=== PATIENT | female | born 1995 | race Caucasian/White ===

== ENCOUNTER 2016-09-08 19:20 | Emergency (ER) | payer MEDICAID ==
[~2016-09-08] VITALS: Ht 154.9 cm; Wt 50.0 kg
[~2016-09-08 19:20] MED LIST: ALBUAER3 INH; AMIT1TAB79 PO; BACL20TA PO; CIPR-9 PO; CLON1TAB PO; DOCU100C PO; EPIP0.3I IM; GABA600T PO; LYRI150C PO; MACR100C2 PO; MONT10TA2 PO; OMEP20CA2 PO; PAXI20TA PO; PERC5TAB12 PO; PROC2.5C RECTAL; RANI150T PO; SEASTAB2 PO; ULTR50TA5 PO; ZOFR8TAB4 SL; [UNRECOGNIZED DRUG - CODE] TOPICAL
[2016-09-08 19:22] VITALS: BP 133/74; PULSE 99; RESP 16; TEMP 98.5; O2SAT 98
[2016-09-08] MEDS ORDERED: SODIUM CHLOR 0.9% 1000 ML INJ 1,000 ML IV SCH (23:43)
[2016-09-08] MEDS ORDERED: HYDROmorphone HCL PF 1 MG/ML VIAL IVS ONE (23:45)
[2016-09-08] MEDS ORDERED: SODIUM CHLORIDE 0.9% FLUSH 5 ML FLUSH IVF PRN (23:45)
[2016-09-09 00:08] LABS: AUTOMATED NEUTROPHIL # 5.1 TH/MM3 (1.8-7.7); BASOPHIL % 0.5 % (0.0-2.0); EOSINOPHIL # 0.2 TH/MM3 (0-0.4); HEMATOCRIT 41.2 % (35.0-46.0); HEMO FLAGS DIFF FINAL; LYMPH % 34.8 % (9.0-44.0); LYMPHOCYTE # 3.2 TH/MM3 (1.0-4.8); MEAN CELL VOLUME 85.8 FL (80.0-100.0); MEAN CORPUSCULAR HEMOGLOBIN 29.6 PG (27.0-34.0); MEAN CORPUSCULAR HGB CONC 34.4 % (32.0-36.0); MONO % 6.9 % (0.0-8.0); NEUT % 55.8 % (16.0-70.0); PLATELET COUNT 267 TH/MM3 (150-450); RED CELL DISTRIBUTION WIDTH 19.2 % (11.6-17.2); WHITE BLOOD COUNT 9.2 TH/MM3 (4.0-11.0)
--- NOTE | 2016-09-09 00:09 | PD ---
HPI Chief Complaint: Complaint Time Seen by Provider: 23:37 Travel History International Travel<30 days: No Contact w/Intl Traveler<30days: No Traveled to known affect area: No History of Present Illness HPI Patient is a 21-year-old female history of paraplegia for the past year presents emergency Department with recurrent UTI symptoms. Patient states that she would just finished antibiotics and continues to have burning on urination and vaginal irritation. Denies any fever denies abdominal pain. States the pain is now radiating up to her back. Patient does self catheter at home secondary to paraplegia, she did just have a urine culture by her primary care physician positive for Escherichia coli and was prescribed ciprofloxacin but has not started it yet. Denies any fever mild nausea without vomiting. Denies any vaginal bleeding or vaginal discharge. PFSH Past Medical History Asthma: Yes Autoimmune Disease: No Anxiety: Yes Depression: Yes Cancer: No Cardiovascular Problems: No Cerebrovascular Accident: Yes (SPINE) Diminished Hearing: No Endocrine: No GERD: Yes Genitourinary: Yes (PT SELF CATHS 6 X DAILY) Immune Disorder: No Musculoskeletal: Yes (PARAPLEGIC, FOOT DROP) Neurologic: No Psychiatric: Yes (BIPOLAR?) Respiratory: Yes Migraines: No Seizures: No Menopausal: No Past Surgical History Abdominal Surgery: No AICD: No Arteriovenous Shunt: No Cardiac Surgery: No Ear Surgery: No Endocrine Surgery: No Eye Surgery: No Genitourinary Surgery: No Gynecologic Surgery: No Insulin Pump: No Joint Replacement: No Oral Surgery: No Pacemaker: No Thoracic Surgery: No Other Surgery: Yes (PLASTIC SURGERY SKIN GRAFT ON LEFT BUTTOCK) Social History Alcohol Use: No Tobacco Use: Yes (1 PPD) Substance Use: No Allergies-Medications (Allergen,Severity, Reaction): Coded Allergies: Atarax (Verified Allergy, Severe, 09/08/16) FACE SWELLING Ativan (Verified Allergy, Severe, Swelling, 09/08/16) Penicillin (Verified Allergy, Severe, 09/08/16) WAS TOLD NOT TO TAKE Vancomycin (Verified Allergy, Severe, 09/08/16) "RED MAN SYNDROME", Adhesives (Verified Allergy, Mild, 09/08/16) rash Reported Meds & Prescriptions Reported Meds & Active Scripts Active Zofran Odt (Ondansetron Odt) 4 Mg Tab 4 Mg SL Q6HR PRN [place] (Hydrocodone-Acetaminophen) 10-325 Mg Tab 1 Tab PO Q6H PRN Cipro (Ciprofloxacin HCl) 500 Mg Tab 500 Mg PO BID Paxil (Paroxetine HCl) 20 Mg Tab 20 Mg PO DAILY Proctosol Hc (Hydrocortisone Rectal) 2.5% Cream 1 Applic RECTAL BID PRN Clonazepam 1 Mg Tab 1 Mg PO TID Gabapentin 600 Mg Tab 1,200 Mg PO TID Elavil (Amitriptyline HCl) 25 Mg Tab 50 Mg PO HS Tretinoin Microsphere Topical 0.1 % Gel 1 Applic TOPICAL HS Ranitidine (Ranitidine HCl) 150 Mg Tab 150 Mg PO HS Ultram (Tramadol HCl) 50 Mg Tab 100 Mg PO Q4H PRN Reported Omeprazole 20 Mg Cap Mg PO DAILY Lyrica (Pregabalin) 150 Mg Cap 150 Mg PO TID Percocet (Oxycodone-Acetaminophen) 5-325 mg Tab 1 Tab PO Q8HR PRN Zofran Odt (Ondansetron Odt) 8 Mg Tab 8 Mg SL Q8H PRN Singulair (Montelukast Sodium) 10 Mg Tab 10 Mg PO HS Seasonique (Levonorgestrel-Ethinyl Estradiol) 0.15-0.03-0.01 Mg Tab 1 Tab PO DAILY Epipen 2-Chau Inj (Epinephrine) 0.3 Mg/0.3 Ml Pfpen 0.3 Mg IM ONCE PRN Docusate Sodium 100 Mg Cap 100 Mg PO BID Baclofen 20 Mg Tab 20 Mg PO TID Proair Hfa 8.5 GM Inh (Albuterol Sulfate) 90 Mcg/Act Aer 2 Puff INH Q4-6H PRN 108 mcg/actuation Review of Systems Except as stated in HPI: all other systems reviewed are Neg Physical Exam Narrative GENERAL: [Well-developed well-nourished in no apparent distress, happy conversant nontoxic appearance. SKIN: Warm and dry. HEAD: Atraumatic. Normocephalic. EYES: Pupils equal and round. No scleral icterus. No injection or drainage. ENT: No nasal bleeding or discharge. Mucous membranes pink and moist. NECK: Trachea midline. No JVD. CARDIOVASCULAR: Regular rate and rhythm. No murmur appreciated. RESPIRATORY: No accessory muscle use. Clear to auscultation. Breath sounds equal bilaterally. GASTROINTESTINAL: Abdomen soft, non-tender, nondistended. Hepatic and splenic margins not palpable. CVA tenderness on the right, this was significant enough to hunch over the patient and pain. Was deferred on the left. Abdomen was soft and nontender and completely benign. MUSCULOSKELETAL: No obvious deformities. No clubbing. No cyanosis. No edema. NEUROLOGICAL: Awake and alert. No obvious cranial nerve deficits. Motor grossly within normal limits. Normal speech. PSYCHIATRIC: Appropriate mood and affect; insight and judgment normal. Data Data Last Documented VS Vital Signs Date Time Temp Pulse Resp B/P Pulse Ox O2 Delivery O2 Flow Rate FiO2 09/09/16 00:24 98.9 95 18 132/78 100 Room Air Orders Complete Blood Count With Diff (09/08/16 23:43) Comprehensive Metabolic Panel (09/08/16 23:43) Lipase (09/08/16 23:43) Lactic Acid (09/08/16 23:43) Urinalysis - C+S If Indicated (09/08/16 23:43) Iv Access Insert/Monitor (09/08/16 23:43) Ecg Monitoring (09/08/16 23:43) Oximetry (09/08/16 23:43) Sodium Chlor 0.9% 1000 Ml Inj (Ns 1000 M (09/08/16 23:43) Sodium Chloride 0.9% Flush (Ns Flush) (09/08/16 23:45) Hydromorphone Pf Inj (Dilaudid Pf Inj) (09/08/16 23:45) Ed Urine Pregnancytest Poc (09/08/16 23:43) Urine Culture (09/09/16 00:15) Acetamin-Hydrocod 325-5 Mg ([place] 5-325 (09/09/16 01:30) Ciprofloxacin (Cipro) (09/09/16 01:30) Labs Laboratory Tests Test 09/08/16 09/09/16 23:59 00:15 White Blood Count 9.2 TH/MM3 Red Blood Count 4.80 MIL/MM3 Hemoglobin 14.2 GM/DL Hematocrit 41.2 % Mean Corpuscular Volume 85.8 FL Mean Corpuscular Hemoglobin 29.6 PG Mean Corpuscular Hemoglobin 34.4 % Concent Red Cell Distribution Width 19.2 % Platelet Count 267 TH/MM3 Mean Platelet Volume 8.8 FL Neutrophils (%) (Auto) 55.8 % Lymphocytes (%) (Auto) 34.8 % Monocytes (%) (Auto) 6.9 % Eosinophils (%) (Auto) 2.0 % Basophils (%) (Auto) 0.5 % Neutrophils # (Auto) 5.1 TH/MM3 Lymphocytes # (Auto) 3.2 TH/MM3 Monocytes # (Auto) 0.6 TH/MM3 Eosinophils # (Auto) 0.2 TH/MM3 Basophils # (Auto) 0.0 TH/MM3 CBC Comment DIFF FINAL Differential Comment Sodium Level 141 MEQ/L Potassium Level 3.9 MEQ/L Chloride Level 105 MEQ/L Carbon Dioxide Level 27.4 MEQ/L Anion Gap 9 MEQ/L Blood Urea Nitrogen 9 MG/DL Creatinine 0.64 MG/DL Estimat Glomerular Filtration 118 ML/MIN Rate Random Glucose 99 MG/DL Lactic Acid Level 1.3 mmol/L Calcium Level 8.8 MG/DL Total Bilirubin 0.2 MG/DL Aspartate Amino Transf 9 U/L (AST/SGOT) Alanine Aminotransferase 16 U/L (ALT/SGPT) Alkaline Phosphatase 70 U/L Total Protein 7.0 GM/DL Albumin 3.4 GM/DL Lipase 96 U/L Urine Color YELLOW Urine Turbidity HAZY Urine pH 6.5 Urine Specific [place] 1.016 Urine Protein TRACE mg/dL Urine Glucose (UA) NEG mg/dL Urine Ketones NEG mg/dL Urine Occult Blood NEG Urine Nitrite POS Urine Bilirubin NEG Urine Urobilinogen LESS THAN 2.0 MG/DL Urine Leukocyte Esterase SMALL Urine RBC 3 /hpf Urine WBC 4 /hpf Urine Squamous Epithelial 1 /hpf Cells Urine Bacteria MANY /hpf Urine Mucus MOD /lpf Microscopic Urinalysis Comment CULTURE INDICATED MDM Medical Decision Making Medical Screen Exam Complete: Yes Emergency Medical Condition: Yes Differential Diagnosis UTI, pyelonephritis, sepsis seems unlikely. Narrative Course Patient was returned to the emergency department, initially she appears quite well on CVA testings cause significant pain. She was given pain medicine and return to her comfortable state. Her UA does show evidence of urinary tract infection. A urine culture was sent. Discussed need to start her Cipro. Otherwise her labs are reassuring and no evidence of sepsis. She is stable for discharge at this time. Discussed clean self cathetering technique and return to ED criteria. Discussed calling her primary care physician in the morning. Diagnosis Primary Impression: Pyelonephritis Additional Instructions: Call your primary care physician in the morning, take your Cipro as prescribed. Med/Other Pt SpecificInfo: Prescription(s) given Scripts Ondansetron Odt (Zofran Odt)4 Mg Tab4 Mg SL Q6HR PRN (Nausea/Vomiting) #30 TAB Ref 0 Prov:Deep Hearn MD 09/09/16 Hydrocodone-Acetaminophen ([place])10-325 Mg Tab1 Tab PO Q6H PRN (PAIN) #15 TAB Ref 0 Prov:Deep Hearn MD 09/09/16 Disposition: 01 DISCHARGE HOME Condition: Stable Deep Hearn MD Sep 09, 2016 00:09
[2016-09-09 00:22] VITALS: O2SAT 100
[2016-09-09 00:23] LABS: ALT (GPT) 16 U/L (9-42); ANION GAP 9 MEQ/L (5-15); AST (GOT) 9 U/L (16-38); BICARBONATE 27.4 MEQ/L (21.0-32.0); BLOOD UREA NITROGEN 9 MG/DL (7-18); CHLORIDE 105 MEQ/L (98-107); GLOMERULAR FILTRATION RATE 118 ML/MIN (>89); POTASSIUM 3.9 MEQ/L (3.5-5.1); SODIUM (NA) 141 MEQ/L (136-145)
[2016-09-09 00:24] VITALS: BP 132/78; PULSE 95; RESP 18; TEMP 98.9; O2SAT 100
[2016-09-09 00:26] LABS: ALKALINE PHOSPHATASE 70 U/L (45-117); TOTAL BILIRUBIN ADULT 0.2 MG/DL (0.2-1.0)
[2016-09-09 00:33] LABS: BACTERIA, URINE MANY /hpf; BLOOD, URINE NEG (NEG); COMMENT (UR) CULTURE INDICATED; CULTURE IF INDICATED CULTURE INDICATED; GLUCOSE,URINE NEG (NEG); KETONE, URINE NEG (NEG); MUCUS URINE MOD /lpf (OCC); NITRITE,URINE POS (NEG); PH, URINE 6.5 (5.0-8.5); SQUAMOUS EPITHELIAL CELL URINE 1 /hpf (0-5); URINE COLOR YELLOW (YELLW/STRAW)
[2016-09-09] MEDS ORDERED: ZOFR4TAB3 SL (01:17)
[2016-09-09] MEDS ORDERED: HYDR-3366 PO (01:17)
[2016-09-09] MEDS ORDERED: ACETAMINOPHEN/HYDROcodone 325 MG/5 MG TAB PO ONE (01:30)
[2016-09-09] MEDS ORDERED: CIPROFLOXACIN 500 MG TAB PO ONE (01:30)
[2016-09-23] MEDS ORDERED: PERC10TA27 PO (10:29)
[2016-09-23] MEDS ORDERED: DIAZ5 PO (10:29)
[2016-09-23] MEDS ORDERED: CLON1TAB PO (10:36)
[2016-09-23] MEDS ORDERED: ULTR50TA5 PO (10:36)
[2016-09-23] MEDS ORDERED: BACL20TA PO (10:36)
[2016-09-23] MEDS ORDERED: CIPR-9 PO (10:36)
[2016-09-23] MEDS ORDERED: ZOFR8TAB4 SL (10:50)
[2016-09-28] MEDS ORDERED: PERC10TA27 PO (09:26)
[2016-09-28] MEDS ORDERED: BACL20TA PO (09:26)
[2016-09-28] MEDS ORDERED: CIPR-9 PO (09:26)
[2016-09-28] MEDS ORDERED: MACR100C2 PO (10:07)
[2016-10-14] MEDS ORDERED: AZIT250T3 PO (11:11)
[2016-10-14] MEDS ORDERED: PERC10TA27 PO (11:11)
[2016-10-14] MEDS ORDERED: LYRI200C PO (11:11)
[2016-10-22] MEDS ORDERED: LEVA750T PO (09:13)
[2016-11-03] MEDS ORDERED: PERC10TA27 PO (17:08)
[2016-11-12] MEDS ORDERED: MACR100C2 PO (15:48)
[2016-11-15] MEDS ORDERED: CLON1TAB PO (10:15)
[2016-11-16] MEDS ORDERED: KETO60IN6 IM (11:24)
[2016-11-23] MEDS ORDERED: KETO60IN6 IM (14:59)
[2016-11-26] MEDS ORDERED: MEDR4PAK PO (12:19)
[2016-11-30] MEDS ORDERED: IBUP800T23 PO (12:30)
[2016-11-30] MEDS ORDERED: PERC10TA27 PO (12:30)
[2016-12-23] MEDS ORDERED: MACR100C2 PO (17:11)
[2016-12-27] MEDS ORDERED: PERI8.6T PO (10:41)
[2016-12-27] MEDS ORDERED: ULTR50TA5 PO (10:42)
[2016-12-31] MEDS ORDERED: LEVA750T PO (11:49)
[2017-01-03] MEDS ORDERED: RANI150T PO (10:53)
[2017-01-04] MEDS ORDERED: CLON1TAB PO (09:55)
[2017-01-04] MEDS ORDERED: DIFL200T PO (10:15)
[2017-01-10] MEDS ORDERED: ALBUAER3 INH (11:46)
[2017-01-31] MEDS ORDERED: MACR100C2 PO (16:48)
[2017-01-31] MEDS ORDERED: ROCE1INJ3 IM (16:56)
[2017-01-31] MEDS ORDERED: KETO60IN6 IM (17:20)
[2017-02-15] MEDS ORDERED: ULTR50TA5 PO (08:25)
== END 2016-09-09 02:08 | disposition home or self-care (01) ==
LOC: NEPC 19:20
DX: N12 Tubulo-interstitial nephritis, not specified as acute or chronic (principal); G82.20 Paraplegia, unspecified; J45.909 Unspecified asthma, uncomplicated; F17.210 Nicotine dependence, cigarettes, uncomplicated; B96.20 Unspecified Escherichia coli [E. coli] as the cause of diseases classified elsewhere
CPT/HCPCS: 80053; 81001; 83605; 83690; 84703; 85025; 87077; 87086; 87186; 96361; 96374; 99283; J1170; J7030

== ENCOUNTER 2016-11-18 10:32 | Emergency (ER) | payer MEDICAID ==
[~2016-11-18] VITALS: Ht 154.9 cm; Wt 50.0 kg
[~2016-11-18 10:32] MED LIST changes: +AZIT250T3 PO; -CIPR-9 PO; +LEVA750T PO; -LYRI150C PO; +LYRI200C PO; +PERC10TA27 PO; +ZOFR4TAB3 SL
[2016-11-18 10:33] VITALS: BP 176/79; PULSE 112; RESP 15; TEMP 98; O2SAT 98
--- NOTE | 2016-11-18 11:13 | PD ---
HPI Chief Complaint: Back/ Neck Pain or Injury Time Seen by Provider: 11:06 Travel History International Travel<30 days: No Contact w/Intl Traveler<30days: No Traveled to known affect area: No History of Present Illness HPI 21-year-old female presents to the emergency Department with complaint of mid and lower back pain after falling and injuring her back on Tuesday. She was seen by her primary care provider, Dr. Rangel, and was sent here for evaluation for acute injury. She does have history of chronic back pain. She is paraplegic and wheelchair bound. She says she was at her doctor's visit on Tuesday and she basically "tucked and rolled, spraining her back" which has caused her increased back pain. She has been taking baclofen and Percocet with no relief of symptoms. She is currently being treated for urinary tract infection with Macrobid and tomorrow is her last antibiotics. She self catheterizes for urine. She disimpacts herself for stool. Denies IV drug use or cancer. Denies fever, chills, nausea, vomiting. Dr. Albarado his primary care provider. Allergies to adhesives, Atarax, Ativan, penicillin, vancomycin. No other modifying factors or associated signs and symptoms. PFSH Past Medical History Asthma: Yes Autoimmune Disease: No Anxiety: Yes Depression: Yes Cancer: No Cardiovascular Problems: No Cerebrovascular Accident: Yes (SPINE) Diminished Hearing: No Endocrine: No GERD: Yes Genitourinary: Yes (PT SELF CATHS 6 X DAILY) Immune Disorder: No Musculoskeletal: Yes (PARAPLEGIC, FOOT DROP) Neurologic: No Psychiatric: Yes (BIPOLAR?) Respiratory: Yes Migraines: No Seizures: No ?: Not Menopausal: No Past Surgical History Abdominal Surgery: No AICD: No Arteriovenous Shunt: No Cardiac Surgery: No Ear Surgery: No Endocrine Surgery: No Eye Surgery: No Genitourinary Surgery: No Gynecologic Surgery: No Insulin Pump: No Joint Replacement: No Oral Surgery: No Pacemaker: No Thoracic Surgery: No Other Surgery: Yes (PLASTIC SURGERY SKIN GRAFT ON LEFT BUTTOCK) Social History Alcohol Use: No Tobacco Use: Yes (1 PPD) Substance Use: No Allergies-Medications (Allergen,Severity, Reaction): Coded Allergies: Atarax (Verified Allergy, Severe, 11/18/16) FACE SWELLING Ativan (Verified Allergy, Severe, Swelling, 3/23/17) Penicillin (Verified Allergy, Severe, 11/18/16) WAS TOLD NOT TO TAKE Vancomycin (Verified Allergy, Severe, 11/18/16) "RED MAN SYNDROME", Adhesives (Verified Allergy, Mild, 11/18/16) rash Reported Meds & Prescriptions Reported Meds & Active Scripts Active Clonazepam 1 Mg Tab 1 Mg PO TID Macrobid (Nitrofurantoin Monoh/Nitrofur Macro) 100 Mg Cap 100 Mg PO BID Percocet (Oxycodone-Acetaminophen) 10-325 mg Tab 1 Tab PO Q6H PRN Lyrica (Pregabalin) 200 Mg Cap 200 Mg PO TID Baclofen 20 Mg Tab 40 Mg PO BID Zofran Odt (Ondansetron Odt) 8 Mg Tab 8 Mg SL Q8H PRN Ultram (Tramadol HCl) 50 Mg Tab 100 Mg PO Q4H PRN Paxil (Paroxetine HCl) 20 Mg Tab 20 Mg PO DAILY Proctosol Hc (Hydrocortisone Rectal) 2.5% Cream 1 Applic RECTAL BID PRN Gabapentin 600 Mg Tab 1,200 Mg PO TID Elavil (Amitriptyline HCl) 25 Mg Tab 50 Mg PO HS Tretinoin Microsphere Topical 0.1 % Gel 1 Applic TOPICAL HS Ranitidine (Ranitidine HCl) 150 Mg Tab 150 Mg PO HS Reported Midol (Ibuprofen) 200 Mg Cap 200-400 Mg PO Q6HR PRN Singulair (Montelukast Sodium) 10 Mg Tab 10 Mg PO HS Seasonique (Levonorgestrel-Ethinyl Estradiol) 0.15-0.03-0.01 Mg Tab 1 Tab PO HS Epipen 2-Chau Inj (Epinephrine) 0.3 Mg/0.3 Ml Pfpen 0.3 Mg IM ONCE PRN Docusate Sodium 100 Mg Cap 100 Mg PO BID Proair Hfa 8.5 GM Inh (Albuterol Sulfate) 90 Mcg/Act Aer 2 Puff INH Q4-6H PRN 108 mcg/actuation Review of Systems Except as stated in HPI: all other systems reviewed are Neg Physical Exam Narrative GENERAL: Well-nourished, well-developed female patient, in no acute distress; paraplegic and wheelchair bound; afebrile, nontoxic-appearing SKIN: Warm and dry. HEAD: Atraumatic. Normocephalic. EYES: Pupils equal and round. No scleral icterus. No injection or drainage. ENT: Mucosa pink and moist. Airway patent. NECK: Trachea midline. CARDIOVASCULAR: Regular rate. RESPIRATORY: No accessory muscle use. GASTROINTESTINAL: Rounded. MUSCULOSKELETAL: Bilateral lower extremities are flaccid, supple and non-tense with 2+ pedal pulses. Sitting up in wheelchair at 90. No obvious deformities. No clubbing. No cyanosis. No edema. BACK: Midline point tenderness on palpation of the lumbar, thoracic. Tenderness on palpation of bilateral musculature of the thoracic area. No obvious deformities. NEUROLOGICAL: Awake and alert. Oriented 3. Bilateral upper extremity with Motor grossly within normal limits. Normal speech. Moves bilateral upper extremities. 5/5 strength to bilateral upper extremities. S PSYCHIATRIC: Appropriate mood and affect; insight and judgment normal. Data Data Last Documented VS Vital Signs Date Time Temp Pulse Resp B/P Pulse Ox O2 Delivery O2 Flow Rate FiO2 11/18/16 10:33 98.0 112 15 176/79 98 Orders Urinalysis - C+S If Indicated (11/18/16 11:03) Ed Urine Pregnancytest Poc (11/18/16 11:03) Ct Lumb Spine W/O Contrast (11/18/16 ) Ct Thor Spine W/O Contrast (11/18/16 ) Ketorolac Inj (Toradol Inj) (11/18/16 11:15) Orphenadrine Inj (Norflex Inj) (11/18/16 11:15) Cath For Specimen (11/18/16 11:05) Hydromorphone Pf Inj (Dilaudid Pf Inj) (11/18/16 13:30) Ct Abd/Pel W/O Iv Contrast (11/18/16 ) Labs Laboratory Tests Test 11/18/16 11:20 Urine Color DARK-YELLOW Urine Turbidity CLEAR Urine pH 6.0 Urine Specific [place] 1.048 Urine Protein 30 mg/dL Urine Glucose (UA) NEG mg/dL Urine Ketones 10 mg/dL Urine Occult Blood TRACE Urine Nitrite NEG Urine Bilirubin NEG Urine Urobilinogen 2.0 MG/DL Urine Leukocyte Esterase NEG Urine RBC 36 /hpf Urine WBC 2 /hpf Urine Squamous Epithelial 2 /hpf Cells Urine Transitional Epithelial <1 /hpf Cells Urine Bacteria OCC /hpf Urine Mucus FEW /lpf Microscopic Urinalysis Comment CULT NOT INDICATED MDM Medical Decision Making Medical Screen Exam Complete: Yes Emergency Medical Condition: Yes Medical Record Reviewed: Yes Differential Diagnosis Thoracic back strain, muscle spasms, acute exacerbation of chronic back pain Narrative Course 21-year-old paraplegic female that is wheelchair-bound with history of chronic back pain has exacerbated her back pain after a fall on Tuesday. She has midline point tenderness on palpation of the thoracic and lumbar spine. Patient is being currently treated for urinary tract infection with Macrobid. I will recheck urinalysis. Urinalysis and ED ordered. Toradol and Norflex ordered. CT lumbar spine and thoracic spine ordered. 1125: I reviewed Dr. Valenzuela note from patient encounter this morning, prior to arrival to ER, and she states in her note "21yoF with: Back pain: I suspect that etiology is a muscular strain or muscle spasm. MRI previously without acute issues, though in light of patient's fall and pain which has not been controlled with oral modalities, will send to the ED to r/o acute injury. Description of fall from prior encounter on 11/16 for reference: After encounter was completing, the patient transferred from the exam table back to her wheelchair. As she got into the wheelchair, she slid off the edge of the wheelchair and onto the floor. She was assisted in getting back into the wheelchair by myself and the assistance of 2 [facility] nurses. Just reported she must not have sat back far enough on the wheelchair. She was tearful after the event reporting her frustration with her medical condition and that she can't do things the way she should be able to. She was consoled after the event and monitored in the [facility] for about 20 minutes prior to leaving her appointment." 1220: The patient is in the room tearful and crying requesting more pain medications. Her visitor in the room asked me to order something more for her pain medication. At this time, the nurse informed me the patient declined the Toradol and Norflex and has not received anything for pain at this time. I discussed this with the patient and she agrees to the Toradol and Norflex at this time. 1229: Toradol and Norflex has been administered at this time. 1315: Urinalysis without signs of infection; specimen with straight catheter specimen; RBC 36, occult blood high. I discussed the patient with Dr. Dent, my attending physician, and she agreed adding CT abdomen/pelvis would be of benefit to rule out kidney stones. Dr. Dent ordered pain medication for the patient. CT abdomen/pelvis ordered. 1516: CT abdomen/pelvis, CT thoracic spine, CT lumbar spine with no acute findings. Ibuprofen and Robaxin prescribed for home. Instructed patient to follow up with primary care provider. Patient verbalizes understanding and agreement with treatment plan. Patient is medically cleared and stable for discharge. Discussed reasons to return to the emergency department. Patient agrees with treatment plan. The patients vital signs are stable and the patient is stable for outpatient follow-up and treatment. Patient discharged home, stable and in no acute distress. Diagnosis Primary Impression: Acute exacerbation of chronic low back pain Additional Impressions: Back strain Qualified Code: S39.012A - Back strain, initial encounter Muscle spasm of back Referrals: Primary Care Physician Patient Instructions: Acute Low Back Pain (ED), General Instructions, Low Back Strain (ED), Muscle Spasm (ED) Additional Instructions: Tylenol or ibuprofen as directed and as needed for pain Robaxin as prescribed and as needed for muscle spasms Heating pad and/or ice to affected area to reduce pain Avoid aggravating activities; increase activity as tolerated Follow-up with primary care provider Return to emergency department immediately with worsening of symptoms Med/Other Pt SpecificInfo: Prescription(s) given Scripts Ibuprofen 800 Mg [id number] Mg PO Q6HR PRN (PAIN) #30 TAB Ref 0 Prov:Twyla Ramires 11/18/16 Methocarbamol (Robaxin)500 Mg [id number] Mg PO QID PRN (MUSCLE SPASM) #30 TAB Ref 0 Prov:Twyla Ramires 11/18/16 Disposition: 01 DISCHARGE HOME Condition: Stable Twyla Ramires Nov 18, 2016 11:13
[2016-11-18] MEDS ORDERED: ORPHENADRINE INJ 60 MG/2 ML AMP IM ONE (11:15)
[2016-11-18] MEDS ORDERED: KETOROLAC TROMETHAMINE 60 MG/2 ML (IM) VIAL IM ONE (11:15)
[2016-11-18 12:04] LABS: BACTERIA, URINE OCC /hpf; COMMENT (UR) CULT NOT INDICATED; CULTURE IF INDICATED CULT NOT INDICATED; GLUCOSE,URINE NEG (NEG); KETONE, URINE 10 mg/dL (NEG); MUCUS URINE FEW /lpf (OCC); NITRITE,URINE NEG (NEG); SQUAMOUS EPITHELIAL CELL URINE 2 /hpf (0-5); TRANSITIONAL EPI CELLS, URINE <1 /hpf
[2016-11-18 12:05] LABS: URINE COLOR DARK-YELLOW (YELLW/STRAW)
[2016-11-18] MEDS ORDERED: MIDO200C PO (12:05)
[2016-11-18 12:07] LABS: BLOOD, URINE TRACE (NEG)
[2016-11-18] MEDS ORDERED: HYDROmorphone HCL PF 1 MG/ML VIAL IM ONE (13:30)
--- NOTE | 2016-11-18 14:27 | RADRPT ---
EXAM DATE/TIME: 11/18/2016 13:38 [facility] COMPARISON: CT ABDOMEN & PELVIS W/O CONTRAST, April 04, 2014, 14:57. INDICATIONS : Right side flank pain. ORAL CONTRAST: No oral contrast ingested. RADIATION DOSE: 6.76 CTDIvol (mGy) MEDICAL HISTORY : Gastroesophageal reflux disease. Asthma. Spinal stroke. Paraplegic. SURGICAL HISTORY : None. ENCOUNTER: Initial ACUITY: 1 day PAIN SCALE: 8/10 LOCATION: Bilateral flank TECHNIQUE: Volumetric scanning of the abdomen and pelvis was performed. Using automated exposure control and ad justment of the mA and/or kV according to patient size, radiation dose was kept as low as reasonably achievable to obtain optimal diagnostic quality images. FINDINGS: LOWER LUNGS: The visualized lower lungs are clear. LIVER: Mild hepatomegaly is noted. Homogeneous density without lesion. There is no dilation of the biliary tree. No calcified gallstones. SPLEEN: Normal size without lesion. PANCREAS: Within normal limits. KIDNEYS: Normal in size and shape. There is no mass, stone, or hydronephrosis. ADRENAL GLANDS: Within normal limits. VASCULAR: There is no aortic aneurysm. BOWEL/MESENTERY: The stomach, small bowel, and colon demonstrate no acute abnormality. There is no free intraperitone al air or fluid. ABDOMINAL WALL: Within normal limits. RETROPERITONEUM: There is no lymphadenopathy. BLADDER: No wall thickening or mass. REPRODUCTIVE: Within normal limits. INGUINAL: There is no lymphadenopathy or hernia. MUSCULOSKELETAL: Within normal limits for patient age. CONCLUSION: 1. No acute intra-abdominal process. 2. Mild hepatomegaly. Deep Catheirne MD on November 18, 2016 at 14:18 Board Certified Radiologist. This report was verified electronically.
--- NOTE | 2016-11-18 14:47 | RADRPT ---
EXAM DATE/TIME: 11/18/2016 13:38 [facility] COMPARISON: No previous studies available for comparison. INDICATIONS : Right side back pain, fell 2 days. RADIATION DOSE: 35.86 CTDIvol (mGy) ; Combined studies - Thoracic Spine/Lumbar Spine MEDICAL HISTORY : Gastroesophageal reflux disease. Paraplegic. Spinal stroke. Asthma. SURGICAL HISTORY : None. ENCOUNTER: Initial ACUITY: 1 day PAIN SCALE: 8/10 LOCATION: thoracic TECHNIQUE: Volumetric scanning of the thoracic spine was performed. Multiplanar reconstructions in the sagittal , coronal and oblique axial planes were performed. Using automated exposure control and adjustment o f the mA and/or kV according to patient size, radiation dose was kept as low as reasonably achievable to obtain optimal diagnostic quality images. FINDINGS: Thoracic spinal alignment is satisfactory. There is no evidence of fracture. No bony canal or foramin al stenosis is noted. There is no evidence of paraspinal hematoma. CONCLUSION: No evidence of acute bony injury in the thoracic spine. Juan Hawk MD on November 18, 2016 at 14:42 Board Certified Radiologist. This report was verified electronically.
--- NOTE | 2016-11-18 15:01 | RADRPT ---
EXAM DATE/TIME: 11/18/2016 13:38 [facility] COMPARISON: CT ABDOMEN & PELVIS W/O CONTRAST, November 18, 2016, 13:38. INDICATIONS : Right side back pain, fall 2 days ago. RADIATION DOSE: 35.86 CTDIvol (mGy) ; Combined studies - Thoracic Spine/Lumbar Spine MEDICAL HISTORY : Gastroesophageal reflux disease. Paraplegic. Spinal stroke. Asthma. SURGICAL HISTORY : None. ENCOUNTER: Initial ACUITY: 2 days PAIN SCALE: 8/10 LOCATION: lumbar TECHNIQUE: Volumetric scanning of the lumbar spine was performed. Multiplanar reconstructions in the sagittal, coronal and oblique axial planes were performed. Using automated exposure control and adjustment of the mA and/or kV according to patient size, radiation dose was kept as low as reasonably achievable t o obtain optimal diagnostic quality images. FINDINGS: Lumbar spine alignment is satisfactory. There is no evidence of fracture. No bony canal or foraminal stenosis is identified. There is no evidence of paraspinal hematoma. CONCLUSION: No evidence of acute bony injury in the lumbosacral spine Juan Hawk MD on November 18, 2016 at 14:46 Board Certified Radiologist. This report was verified electronically.
[2016-11-18] MEDS ORDERED: ROBA500T PO (15:15)
[2016-11-18] MEDS ORDERED: IBUP800T23 PO (15:15)
[2016-11-23] MEDS ORDERED: KETO60IN6 IM (14:59)
[2016-11-26] MEDS ORDERED: MEDR4PAK PO (12:19)
[2016-11-30] MEDS ORDERED: PERC10TA27 PO (12:30)
[2016-11-30] MEDS ORDERED: IBUP800T23 PO (12:30)
[2016-12-23] MEDS ORDERED: MACR100C2 PO (17:11)
[2016-12-27] MEDS ORDERED: PERI8.6T PO (10:41)
[2016-12-27] MEDS ORDERED: ULTR50TA5 PO (10:42)
[2016-12-31] MEDS ORDERED: LEVA750T PO (11:49)
[2017-01-03] MEDS ORDERED: RANI150T PO (10:53)
[2017-01-04] MEDS ORDERED: CLON1TAB PO (09:55)
[2017-01-04] MEDS ORDERED: DIFL200T PO (10:15)
[2017-01-10] MEDS ORDERED: ALBUAER3 INH (11:46)
[2017-01-31] MEDS ORDERED: MACR100C2 PO (16:48)
[2017-01-31] MEDS ORDERED: ROCE1INJ3 IM (16:56)
[2017-01-31] MEDS ORDERED: KETO60IN6 IM (17:20)
[2017-02-15] MEDS ORDERED: ULTR50TA5 PO (08:25)
== END 2016-11-18 16:00 | disposition home or self-care (01) ==
LOC: NETRI 10:32
DX: S39.012A Strain of muscle, fascia and tendon of lower back, initial encounter (principal); W19.XXXA Unspecified fall, initial encounter
CPT/HCPCS: 72128; 72131; 74176; 81001; 84703; 96372; 99284; J1170; J1885; J2360

== ENCOUNTER 2016-11-23 18:10 | Emergency (ER) | payer MEDICAID ==
[~2016-11-23] VITALS: Ht 154.9 cm; Wt 50.0 kg
[~2016-11-23 18:10] MED LIST changes: -AZIT250T3 PO; +IBUP800T23 PO; +KETO60IN6 IM; -LEVA750T PO; +MIDO200C PO; -OMEP20CA2 PO; -PERC5TAB12 PO; +ROBA500T PO; -ZOFR4TAB3 SL
--- NOTE | 2016-11-23 19:35 | PD ---
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 Patient states that 5 days ago she fell out of her wheelchair onto her back while at the doctor's office. States she was seen here in our emergency department after this fall and had CT imaging of her back that was unremarkable. States that since she was discharged she is had persistent mid to lower back pain worse on the right side. States that she feels as though her lower back is swollen and warm. Denies any fever, chills, nausea, vomiting, abdominal pain, cough or cold symptoms. States that she did recently have a urinary tract infection and finished her antibiotics 2 days ago. States that she saw one of the physicians at Dr. Rangel's office today but was unsatisfied with the visit and states she was given Toradol there for her pain. States she tried to go to physical therapy today but they wouldn't do any therapy exercises and was sent here by her physical therapist for an MRI. She has been taking Percocet for her pain. No other complaints. PFSH Past Medical History Asthma: Yes Autoimmune Disease: No Anxiety: Yes Depression: Yes Cancer: No Cardiovascular Problems: No Cerebrovascular Accident: Yes (SPINE) Diminished Hearing: No Endocrine: No Gastrointestinal Disorders: Yes GERD: Yes Genitourinary: Yes (PT SELF CATHS 6 X DAILY) Immune Disorder: No Musculoskeletal: Yes (PARAPLEGIC, FOOT DROP) Neurologic: No Psychiatric: Yes (BIPOLAR?) Respiratory: Yes Migraines: No Seizures: No ?: Not Menopausal: No Past Surgical History Abdominal Surgery: No AICD: No Arteriovenous Shunt: No Cardiac Surgery: No Ear Surgery: No Endocrine Surgery: No Eye Surgery: No Genitourinary Surgery: No Gynecologic Surgery: No Insulin Pump: No Joint Replacement: No Oral Surgery: No Pacemaker: No Thoracic Surgery: No Other Surgery: Yes (PLASTIC SURGERY SKIN GRAFT ON LEFT BUTTOCK) Social History Alcohol Use: No Tobacco Use: Yes (1 PPD) Substance Use: No Allergies-Medications (Allergen,Severity, Reaction): Coded Allergies: Atarax (Verified Allergy, Severe, 11/23/16) FACE SWELLING Ativan (Verified Allergy, Severe, Swelling, 11/23/16) Penicillin (Verified Allergy, Severe, 11/23/16) WAS TOLD NOT TO TAKE Vancomycin (Verified Allergy, Severe, 11/23/16) "RED MAN SYNDROME", Adhesives (Verified Allergy, Mild, 11/23/16) rash Reported Meds & Prescriptions Reported Meds & Active Scripts Active Ibuprofen 800 Mg Tab 800 Mg PO Q6HR PRN Robaxin (Methocarbamol) 500 Mg Tab 500 Mg PO QID PRN Clonazepam 1 Mg Tab 1 Mg PO TID Percocet (Oxycodone-Acetaminophen) 10-325 mg Tab 1 Tab PO Q6H PRN Lyrica (Pregabalin) 200 Mg Cap 200 Mg PO TID Baclofen 20 Mg Tab 40 Mg PO BID Zofran Odt (Ondansetron Odt) 8 Mg Tab 8 Mg SL Q8H PRN Ultram (Tramadol HCl) 50 Mg Tab 100 Mg PO Q4H PRN Paxil (Paroxetine HCl) 20 Mg Tab 20 Mg PO DAILY Proctosol Hc (Hydrocortisone Rectal) 2.5% Cream 1 Applic RECTAL BID PRN Gabapentin 600 Mg Tab 1,200 Mg PO TID Elavil (Amitriptyline HCl) 25 Mg Tab 50 Mg PO HS Tretinoin Microsphere Topical 0.1 % Gel 1 Applic TOPICAL HS Ranitidine (Ranitidine HCl) 150 Mg Tab 150 Mg PO HS Reported Midol (Ibuprofen) 200 Mg Cap 200-400 Mg PO Q6HR PRN Singulair (Montelukast Sodium) 10 Mg Tab 10 Mg PO HS Seasonique (Levonorgestrel-Ethinyl Estradiol) 0.15-0.03-0.01 Mg Tab 1 Tab PO HS Epipen 2-Chau Inj (Epinephrine) 0.3 Mg/0.3 Ml Pfpen 0.3 Mg IM ONCE PRN Docusate Sodium 100 Mg Cap 100 Mg PO BID Proair Hfa 8.5 GM Inh (Albuterol Sulfate) 90 Mcg/Act Aer 2 Puff INH Q4-6H PRN 108 mcg/actuation Review of Systems Except as stated in HPI: all other systems reviewed are Neg Physical Exam Narrative GENERAL: Well-nourished and well-developed female patient in no acute distress. SKIN: Warm and dry. HEAD: Normocephalic and atraumatic. EYES: No injection, drainage, or hyphema noted. PERRLA. EOMI. ENT: No nasal drainage noted. Oropharynx is clear. NECK: Supple and the trachea is midline. CARDIOVASCULAR: Regular rate and rhythm. RESPIRATORY: Breath sounds are equal bilaterally with no accessory muscle use, wheezing, rhonchi, or crackles. GASTROINTESTINAL: Abdomen is soft, non-tender, and nondistended. MUSCULOSKELETAL: No obvious deformities, swelling, cyanosis, or ecchymosis is present throughout the upper and lower extremities. Chronically paralyzed from waist down. BACK: Generalized tenderness to palpation of thoracic and lumbar region, worse on right side. No erythema, warmth or swelling noted. No obvious deformities or crepitus noted throughout the thoracic and lumbar vertebrae. NEUROLOGICAL: Awake, alert, and oriented. Normal speech and gait. Cranial nerves are grossly intact. Data Data Last Documented VS Vital Signs Date Time Temp Pulse Resp B/P Pulse Ox O2 Delivery O2 Flow Rate FiO2 11/23/16 20:52 99 Room Air 11/23/16 20:04 98.9 88 18 141/79 Orders Urinalysis - C+S If Indicated (11/23/16 19:34) Basic Metabolic Panel (Bmp) (11/23/16 20:25) Complete Blood Count With Diff (11/23/16 20:25) Iv Access Insert/Monitor (11/23/16 20:25) Ecg Monitoring (11/23/16 20:25) Oximetry (11/23/16 20:25) Sodium Chloride 0.9% Flush (Ns Flush) (11/23/16 20:30) Morphine Inj (Morphine Inj) (11/23/16 20:30) Mri L Spine W&W/O Contrast (11/23/16 ) Mri T Spine W & W/O Contrast (11/23/16 ) Beta Hcg (Quant/Titer) (11/23/16 20:25) Urine Culture (11/23/16 20:00) Sodium Chlor 0.9% 1000 Ml Inj (Ns 1000 M (11/23/16 20:33) Ceftriaxone Inj (Rocephin Inj) (11/23/16 20:45) Diazepam (Valium) (11/23/16 21:30) Labs Laboratory Tests Test 11/23/16 11/23/16 20:00 20:50 Urine Color YELLOW Urine Turbidity HAZY Urine pH 6.5 Urine Specific [place] 1.044 Urine Protein 30 mg/dL Urine Glucose (UA) NEG mg/dL Urine Ketones TRACE mg/dL Urine Occult Blood NEG Urine Nitrite POS Urine Bilirubin NEG Urine Urobilinogen LESS THAN 2.0 MG/DL Urine Leukocyte Esterase MOD Urine RBC 10 /hpf Urine WBC 8 /hpf Urine Squamous Epithelial 1 /hpf Cells Urine Bacteria MANY /hpf Urine Mucus MOD /lpf Microscopic Urinalysis Comment CATH-CULTURE IND White Blood Count 11.4 TH/MM3 Red Blood Count 4.86 MIL/MM3 Hemoglobin 14.7 GM/DL Hematocrit 43.4 % Mean Corpuscular Volume 89.3 FL Mean Corpuscular Hemoglobin 30.2 PG Mean Corpuscular Hemoglobin 33.8 % Concent Red Cell Distribution Width 16.6 % Platelet Count 241 TH/MM3 Mean Platelet Volume 8.8 FL Neutrophils (%) (Auto) 65.9 % Lymphocytes (%) (Auto) 25.4 % Monocytes (%) (Auto) 6.2 % Eosinophils (%) (Auto) 2.3 % Basophils (%) (Auto) 0.2 % Neutrophils # (Auto) 7.5 TH/MM3 Lymphocytes # (Auto) 2.9 TH/MM3 Monocytes # (Auto) 0.7 TH/MM3 Eosinophils # (Auto) 0.3 TH/MM3 Basophils # (Auto) 0.0 TH/MM3 CBC Comment DIFF FINAL Differential Comment Sodium Level 140 MEQ/L Potassium Level 4.0 MEQ/L Chloride Level 106 MEQ/L Carbon Dioxide Level 28.8 MEQ/L Anion Gap 5 MEQ/L Blood Urea Nitrogen 10 MG/DL Creatinine 0.63 MG/DL Estimat Glomerular Filtration 120 ML/MIN Rate Random Glucose 100 MG/DL Calcium Level 8.6 MG/DL Human Chorionic Gonadotropin, LESS THAN 1 Quant MIU/ML [facility] Medical Decision Making Medical Screen Exam Complete: Yes Emergency Medical Condition: Yes Differential Diagnosis Chronic back pain versus acute on chronic pain versus muscle strain versus muscle spasm versus pyelonephritis Narrative Course 21-year-old female presents to the emergency department for evaluation of mid and lower back pain. Patient is afebrile, vital signs are stable. Physical examination reveals generalized back pain. I did review the MR which show she was here 5 days ago and had a CT of the thoracic spine, CT of the lumbar spine and a CT of the abdomen and pelvis which were all negative for any acute abnormalities. It appears that she had a lumbar spine MRI 09/27/16 which shows atrophic spinal cord but no acute process in the lumbar sacral spine. I reviewed the EMR which she saw Dr. Ambrose at the [facility] today for the same complaint of her back pain. Dr. Ambrose recommended she go to physical therapy and she gave her Toradol, recommended decreasing opiates for pain. My attending physician Dr. Calderon also saw the patient and is recommending MRI of T and L spine and dose of pain medication. Patient is administered Morphine 4 mg IV and IV fluids. CBC shows an elevated white blood cell count 11.4, BMP is unremarkable. Beta-HCG is less than 1. Urinalysis shows 30 years and protein, trace ketones, positive nitrites, moderate leukocyte esterase, 10 red blood cells, 8 white blood cells, many bacteria moderate mucus. This can sit with urinary tract infection. Patient will be treated with Rocephin 1 g IV here in the emergency department. Patient signed out to Dr. Calderon who will assume care of the patient and disposition. Twyla East Nov 23, 2016 19:35
[2016-11-23 20:04] VITALS: BP 141/79; PULSE 88; RESP 18; TEMP 98.9; O2SAT 99
[2016-11-23] MEDS ORDERED: MORPHINE SULFATE 4 MG/ML INJ IV PUSH ONE (20:30)
[2016-11-23] MEDS ORDERED: SODIUM CHLORIDE 0.9% FLUSH 10 ML FLUSH IV FLUSH PRN (20:30)
[2016-11-23 20:31] LABS: BACTERIA, URINE MANY /hpf; BLOOD, URINE NEG (NEG); GLUCOSE,URINE NEG (NEG); KETONE, URINE TRACE mg/dL (NEG); MUCUS URINE MOD /lpf (OCC); PH, URINE 6.5 (5.0-8.5); SQUAMOUS EPITHELIAL CELL URINE 1 /hpf (0-5); URINE COLOR YELLOW (YELLW/STRAW)
[2016-11-23 20:33] LABS: COMMENT (UR) CATH-CULTURE IND; CULTURE IF INDICATED CATH CULTURE IND; NITRITE,URINE POS (NEG)
[2016-11-23] MEDS ORDERED: SODIUM CHLOR 0.9% 1000 ML INJ 1,000 ML IV SCH (20:33)
[2016-11-23] MEDS ORDERED: cefTRIAXone INJ 1,000 MG in SODIUM CHLORIDE 0.9% INJ 100 ML IV ONE (20:45)
[2016-11-23 20:52] VITALS: O2SAT 99
[2016-11-23 21:03] LABS: AUTOMATED NEUTROPHIL # 7.5 TH/MM3 (1.8-7.7); BASOPHIL % 0.2 % (0.0-2.0); EOSINOPHIL # 0.3 TH/MM3 (0-0.4); EOSINOPHIL % 2.3 % (0.0-4.0); HEMATOCRIT 43.4 % (35.0-46.0); HEMO FLAGS DIFF FINAL; LYMPH % 25.4 % (9.0-44.0); LYMPHOCYTE # 2.9 TH/MM3 (1.0-4.8); MEAN CELL VOLUME 89.3 FL (80.0-100.0); MEAN CORPUSCULAR HEMOGLOBIN 30.2 PG (27.0-34.0); MEAN CORPUSCULAR HGB CONC 33.8 % (32.0-36.0); MONO % 6.2 % (0.0-8.0); NEUT % 65.9 % (16.0-70.0); PLATELET COUNT 241 TH/MM3 (150-450); RED BLOOD COUNT 4.86 MIL/MM3 (4.00-5.30); RED CELL DISTRIBUTION WIDTH 16.6 % (11.6-17.2); WHITE BLOOD COUNT 11.4 TH/MM3 (4.0-11.0)
[2016-11-23 21:19] LABS: ANION GAP 5 MEQ/L (5-15); BICARBONATE 28.8 MEQ/L (21.0-32.0); BLOOD UREA NITROGEN 10 MG/DL (7-18); CHLORIDE 106 MEQ/L (98-107); GLOMERULAR FILTRATION RATE 120 ML/MIN (>89); SODIUM (NA) 140 MEQ/L (136-145)
[2016-11-23 21:23] LABS: BETA HCG QUANT LESS THAN 1 MIU/ML (0-5)
[2016-11-23] MEDS ORDERED: DIAZEPAM 5 MG TAB PO ONE (21:30)
--- NOTE | 2016-11-23 21:43 | PD ---
Physical Exam Narrative I, Dr. Calderon, have reviewed the advance practice practitioner's documentation and am in agreement, met with the patient face to face, made the diagnosis, and the medical decision making was done by me. *My assessment and Findings: Patient is a 21 year old female with history of paralysis secondary to a spinal stroke, who comes in complaining of back pain. She says she has been having increased pain since falling out of her wheelchair last week. She was seen in the ED after incident and had CT scans which were negative for acute findings. She continues to have severe pain and says she has swelling to her back. She says her physical therapist insists she have an MRI to look for the source of the pain. Exam shows no spinal tenderness, no swelling seen, no erythema of the skin. Data Data Last Documented VS Vital Signs Date Time Temp Pulse Resp B/P Pulse Ox O2 Delivery O2 Flow Rate FiO2 11/23/16 20:52 99 Room Air 11/23/16 20:04 98.9 88 18 141/79 Orders Urinalysis - C+S If Indicated (11/23/16 19:34) Basic Metabolic Panel (Bmp) (11/23/16 20:25) Complete Blood Count With Diff (11/23/16 20:25) Iv Access Insert/Monitor (11/23/16 20:25) Ecg Monitoring (11/23/16 20:25) Oximetry (11/23/16 20:25) Sodium Chloride 0.9% Flush (Ns Flush) (11/23/16 20:30) Morphine Inj (Morphine Inj) (11/23/16 20:30) Mri L Spine W&W/O Contrast (11/23/16 ) Mri T Spine W & W/O Contrast (11/23/16 ) Beta Hcg (Quant/Titer) (11/23/16 20:25) Urine Culture (11/23/16 20:00) Sodium Chlor 0.9% 1000 Ml Inj (Ns 1000 M (11/23/16 20:33) Ceftriaxone Inj (Rocephin Inj) (11/23/16 20:45) Diazepam (Valium) (11/23/16 21:30) Oxycodone-Acetamin 10-325 Mg (Percocet 1 (11/23/16 23:00) Gadodiamide Pf Inj (Omniscan Pf Inj) (11/23/16 23:24) Cyclobenzaprine (Flexeril) (11/24/16 00:15) Ibuprofen (Motrin) (11/24/16 00:15) Labs Laboratory Tests Test 11/23/16 11/23/16 20:00 20:50 Urine Color YELLOW Urine Turbidity HAZY Urine pH 6.5 Urine Specific [place] 1.044 Urine Protein 30 mg/dL Urine Glucose (UA) NEG mg/dL Urine Ketones TRACE mg/dL Urine Occult Blood NEG Urine Nitrite POS Urine Bilirubin NEG Urine Urobilinogen LESS THAN 2.0 MG/DL Urine Leukocyte Esterase MOD Urine RBC 10 /hpf Urine WBC 8 /hpf Urine Squamous Epithelial 1 /hpf Cells Urine Bacteria MANY /hpf Urine Mucus MOD /lpf Microscopic Urinalysis Comment CATH-CULTURE IND White Blood Count 11.4 TH/MM3 Red Blood Count 4.86 MIL/MM3 Hemoglobin 14.7 GM/DL Hematocrit 43.4 % Mean Corpuscular Volume 89.3 FL Mean Corpuscular Hemoglobin 30.2 PG Mean Corpuscular Hemoglobin 33.8 % Concent Red Cell Distribution Width 16.6 % Platelet Count 241 TH/MM3 Mean Platelet Volume 8.8 FL Neutrophils (%) (Auto) 65.9 % Lymphocytes (%) (Auto) 25.4 % Monocytes (%) (Auto) 6.2 % Eosinophils (%) (Auto) 2.3 % Basophils (%) (Auto) 0.2 % Neutrophils # (Auto) 7.5 TH/MM3 Lymphocytes # (Auto) 2.9 TH/MM3 Monocytes # (Auto) 0.7 TH/MM3 Eosinophils # (Auto) 0.3 TH/MM3 Basophils # (Auto) 0.0 TH/MM3 CBC Comment DIFF FINAL Differential Comment Sodium Level 140 MEQ/L Potassium Level 4.0 MEQ/L Chloride Level 106 MEQ/L Carbon Dioxide Level 28.8 MEQ/L Anion Gap 5 MEQ/L Blood Urea Nitrogen 10 MG/DL Creatinine 0.63 MG/DL Estimat Glomerular Filtration 120 ML/MIN Rate Random Glucose 100 MG/DL Calcium Level 8.6 MG/DL Human Chorionic Gonadotropin, LESS THAN 1 Quant MIU/ML MDM Supervised Visit with [facility]: Yes Narrative Course Patient given pain medicine. She and her mother insist her back is swollen and she requires an MRI. MRI performed shows no acute abnormalities or reason for pain. Patient advised to take her medications at home. Advised to follow up with her doctors. Advised to return to the ED as needed for any worsening symptoms. Diagnosis Primary Impression: Back strain Qualified Code: S39.012A - Back strain, initial encounter Patient Instructions: Back Pain (ED), General Instructions Additional Instruction: Follow up with your doctors. Return to the ED as needed for any worsening symptoms. Disposition: 01 DISCHARGE HOME Condition: Stable Sandy Calderon MD Nov 23, 2016 21:43
[2016-11-23] MEDS ORDERED: oxyCODONE/ACETAMINOPHEN 10 MG/325 MG TAB PO ONE (23:00)
[2016-11-23] MEDS ORDERED: GADODIAMIDE PF 287 MG/ML 10 ML VIAL (for RAD MRI) IV ONE (23:24)
--- NOTE | 2016-11-24 00:04 | RADRPT ---
EXAM DATE/TIME: 11/23/2016 21:34 [facility] COMPARISON: No previous studies available for comparison. INDICATIONS : Pain. 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 CONTRAST: 10 cc Omniscan (gadodiamide) IV MEDICAL HISTORY : Gastroesophageal reflux disease. Spinal cord stroke. SURGICAL HISTORY : Skin graft. ENCOUNTER: Subsequent ACUITY: 4-6 days PAIN SCORE: 8/10 LOCATION: Lower back. TECHNIQUE: Multiplanar multisequence MRI of the lumbar spine was performed with and without contrast. FINDINGS: The paraspinous and pelvic girdle musculature is very atrophic. The conus medullaris is also markedly atrophic with reported history of paraplegia. Minimal disc bulge is present in the lumbar spine. There is no canal or foraminal stenosis. A direct nerve root compression. Normal alignment. CONCLUSION: 1. Minimal bulges at the disc interspaces of the lumbar spine without canal or foraminal stenosis. Ma rkedly atrophic changes in the distal spinal cord with extensive muscular atrophy. Manolo Evans MD on November 23, 2016 at 23:59 Board Certified Radiologist. This report was verified electronically.
--- NOTE | 2016-11-24 00:07 | RADRPT ---
EXAM DATE/TIME: 11/23/2016 21:34 [facility] COMPARISON: No previous studies available for comparison. INDICATIONS : Pain. 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 CONTRAST: 10 cc Omniscan (gadodiamide) IV MEDICAL HISTORY : Gastroesophageal reflux disease. Spinal cord stroke. SURGICAL HISTORY : Skin graft. ENCOUNTER: Subsequent ACUITY: 4-6 days PAIN SCORE: 8/10 LOCATION: Mid-back. TECHNIQUE: Multiplanar multisequence MRI of the thoracic spine was performed. FINDINGS: The thoracic spinal cord is markedly atrophic with reported history of spinal cord infarct. There is no significant canal stenosis. No cord impingement. There are several mild disc bulges in the thoraci c spine at [id number]. No discrete disc protrusions. No overt nerve root compression. CONCLUSION: 1. Spinal cord atrophy. No canal stenosis or cord impingement. No direct nerve root compression. Mini mal disc bulges inferiorly. No abnormal enhancement. Manolo Evans MD on November 24, 2016 at 0:03 Board Certified Radiologist. This report was verified electronically.
[2016-11-24] MEDS ORDERED: CYCLOBENZAPRINE HCL 10 MG TAB PO ONE (00:15)
[2016-11-24] MEDS ORDERED: IBUPROFEN 600 MG TAB PO ONE (00:15)
[2016-11-26] MEDS ORDERED: MEDR4PAK PO (12:19)
[2016-11-30] MEDS ORDERED: PERC10TA27 PO (12:30)
[2016-11-30] MEDS ORDERED: IBUP800T23 PO (12:30)
[2016-12-23] MEDS ORDERED: MACR100C2 PO (17:11)
[2016-12-27] MEDS ORDERED: PERI8.6T PO (10:41)
[2016-12-27] MEDS ORDERED: ULTR50TA5 PO (10:42)
[2016-12-31] MEDS ORDERED: LEVA750T PO (11:49)
[2017-01-03] MEDS ORDERED: RANI150T PO (10:53)
[2017-01-04] MEDS ORDERED: CLON1TAB PO (09:55)
[2017-01-04] MEDS ORDERED: DIFL200T PO (10:15)
[2017-01-10] MEDS ORDERED: ALBUAER3 INH (11:46)
[2017-01-31] MEDS ORDERED: MACR100C2 PO (16:48)
[2017-01-31] MEDS ORDERED: ROCE1INJ3 IM (16:56)
[2017-01-31] MEDS ORDERED: KETO60IN6 IM (17:20)
[2017-02-15] MEDS ORDERED: ULTR50TA5 PO (08:25)
== END 2016-11-24 01:21 | disposition home or self-care (01) ==
LOC: NEPC 18:10
DX: S39.012A Strain of muscle, fascia and tendon of lower back, initial encounter (principal); N39.0 Urinary tract infection, site not specified; B96.20 Unspecified Escherichia coli [E. coli] as the cause of diseases classified elsewhere; W05.0XXA Fall from non-moving wheelchair, initial encounter
CPT/HCPCS: 72157; 72158; 80048; 81001; 84702; 85025; 87077; 87086; 87186; 96365; 96366; 96375; 99284; A9579; J0696; J2270; J7030

== ENCOUNTER 2017-02-08 11:35 | Observation (INO) | payer MEDICAID ==
[2017-02-08] VITALS (7 sets, daily range): BP systolic 125–146; BP diastolic 68–94; PULSE 75–133; RESP 16–20; TEMP 96.9–98.7; O2SAT 97–100
[~2017-02-08] VITALS: Ht 154.9 cm; Wt 70.0 kg
[~2017-02-08 11:35] MED LIST changes: +DIFL200T PO; -DOCU100C PO; -KETO60IN6 IM; +LEVA750T PO; -MIDO200C PO; -PERC10TA27 PO; +PERI8.6T PO; -[UNRECOGNIZED DRUG - CODE] TOPICAL
[2017-02-08] MEDS ORDERED: SODIUM CHLOR 0.9% 1000 ML INJ 1,000 ML IV SCH ×2 (12:16→14:14)
--- NOTE | 2017-02-08 12:18 | PD ---
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 She does self catheterize. Patient states that for 2 months she has had intermittent urinary tract infections. States that she's been treated with multiple rounds of Macrobid as her urinary tract infections are resistant to most oral antibiotics. States that within 1-2 days of finishing her Macrobid she has a return of symptoms with burning with urination, dark foul-smelling urine and right flank pain. States that over the past several days her symptoms have worsened and she's also had some subjective fever and chills with nausea and vomiting. She finished her last dose of Macrobid this morning and is concerned that she still has infection and is going to get worse. She also complains of 2 wounds on her left posterior thigh that of them present for 5 days. States that she thinks they are burn wounds but is unsure how she obtained some. She does smoke cigarettes but states that she never had any burn holes in her pants. She states that they have been healing with proper wound care but her PCP asked that we evaluate them as she has had history of bad sacral wounds. PCP Dr. Rangel. No other complaints. PFSH Past Medical History Asthma: Yes Autoimmune Disease: No Anxiety: Yes Depression: Yes Cancer: No Cardiovascular Problems: No Cerebrovascular Accident: Yes (SPINE) Diminished Hearing: No Endocrine: No Gastrointestinal Disorders: Yes GERD: Yes Genitourinary: Yes (PT SELF CATHS 6 X DAILY) Immune Disorder: No Musculoskeletal: Yes (PARAPLEGIC, FOOT DROP) Neurologic: No Psychiatric: Yes (BIPOLAR) Respiratory: Yes Migraines: No Seizures: No Tetanus Vaccination: < 5 Years Influenza Vaccination: Yes ?: Unknown LMP: 3 MONTHS AGO Menopausal: No Past Surgical History Abdominal Surgery: No AICD: No Arteriovenous Shunt: No Cardiac Surgery: No Ear Surgery: No Endocrine Surgery: No Eye Surgery: No Genitourinary Surgery: No Gynecologic Surgery: No Insulin Pump: No Joint Replacement: No Oral Surgery: No Pacemaker: No Thoracic Surgery: No Other Surgery: Yes (PLASTIC SURGERY SKIN GRAFT ON LEFT BUTTOCK) Social History Alcohol Use: No Tobacco Use: Yes Substance Use: No Allergies-Medications (Allergen,Severity, Reaction): Coded Allergies: Atarax (Verified Allergy, Severe, 02/08/17) FACE SWELLING Ativan (Verified Allergy, Severe, Swelling, 02/08/17) Penicillin (Verified Allergy, Severe, 02/08/17) WAS TOLD NOT TO TAKE Vancomycin (Verified Allergy, Severe, 02/08/17) "RED MAN SYNDROME", Adhesives (Verified Allergy, Mild, 02/08/17) rash Reported Meds & Prescriptions Reported Meds & Active Scripts Active Macrobid (Nitrofurantoin Monohydrate Macrocrystals) 100 Mg Capsule 100 Mg PO BID Proair Hfa 8.5 GM Inh (Albuterol Sulfate) 90 Mcg/Act Aer 2 Puff INH Q4-6H PRN 108 mcg/actuation Diflucan (Fluconazole) 200 Mg Tab 200 Mg PO DAILY Clonazepam 1 Mg Tab 1 Mg PO TID Ranitidine (Ranitidine HCl) 150 Mg Tab 150 Mg PO HS Levaquin (Levofloxacin) 750 Mg Tab 750 Mg PO DAILY Ultram (Tramadol HCl) 50 Mg Tab 100 Mg PO Q6HR PRN Ibuprofen 800 Mg Tab 800 Mg PO Q6HR PRN Robaxin (Methocarbamol) 500 Mg Tab 500 Mg PO QID PRN Lyrica (Pregabalin) 200 Mg Cap 200 Mg PO TID Baclofen 20 Mg Tab 40 Mg PO BID Zofran Odt (Ondansetron Odt) 8 Mg Tab 8 Mg SL Q8H PRN Paxil (Paroxetine HCl) 20 Mg Tab 20 Mg PO DAILY Proctosol Hc 2.5% (Hydrocortisone Rectal 2.5%) 2.5% Cream 1 Applic RECTAL BID PRN Gabapentin 600 Mg Tab 1,200 Mg PO TID Elavil (Amitriptyline HCl) 25 Mg Tab 50 Mg PO HS Reported Kathy-Colace (Sennosides-Docusate Sodium) 8.6-50 Mg Tab 1 Tab PO DAILY Singulair (Montelukast Sodium) 10 Mg Tab 10 Mg PO HS Seasonique (Levonorgestrel-Ethinyl Estradiol) 0.15-0.03-0.01 Mg Tab 1 Tab PO HS Epipen 2-Chau Inj (Epinephrine) 0.3 Mg/0.3 Ml Pfpen 0.3 Mg IM ONCE PRN Review of Systems Except as stated in HPI: all other systems reviewed are Neg Physical Exam Narrative GENERAL: Well-nourished and well-developed pleasant female patient in no acute distress. SKIN: Warm and dry. 2 dime-sized well-circumscribed superficial wounds to left upper posterior thigh. Thin erythematous ring surrounding each wound. No warmth, tenderness to palpation, discharge or drainage. HEAD: Normocephalic and atraumatic. EYES: No injection, drainage, or hyphema noted. PERRLA. EOMI. ENT: No nasal drainage noted. Oropharynx is clear. NECK: Supple and the trachea is midline. CARDIOVASCULAR: Regular rate and rhythm. RESPIRATORY: Breath sounds are equal bilaterally with no accessory muscle use, wheezing, rhonchi, or crackles. GASTROINTESTINAL: Right flank tenderness to palpation. Abdomen is soft and nondistended. Negative McBurney's point. Negative Varghese's sign. MUSCULOSKELETAL: No obvious deformities, swelling, cyanosis, or ecchymosis is present throughout the upper and lower extremities. BACK: Right CVA tenderness. NEUROLOGICAL: Awake, alert, and oriented. Normal speech and gait. Cranial nerves are grossly intact. Data Data Last Documented VS Vital Signs Date Time Temp Pulse Resp B/P Pulse Ox O2 Delivery O2 Flow Rate FiO2 02/08/17 14:58 16 02/08/17 14:25 93 135/80 98 02/08/17 11:37 98.7 Orders Wound Culture And Gram Stain (02/08/17 12:16) Complete Blood Count With Diff (02/08/17 12:16) Comprehensive Metabolic Panel (02/08/17 12:16) Lipase (02/08/17 12:16) Lactic Acid (02/08/17 12:16) Urinalysis - C+S If Indicated (02/08/17 12:16) Iv Access Insert/Monitor (02/08/17 12:16) Ecg Monitoring (02/08/17 12:16) Oximetry (02/08/17 12:16) Morphine Inj (Morphine Inj) (02/08/17 12:30) Ondansetron Inj (Zofran Inj) (02/08/17 12:30) Sodium Chlor 0.9% 1000 Ml Inj (Ns 1000 M (02/08/17 12:16) Sodium Chloride 0.9% Flush (Ns Flush) (02/08/17 12:30) Ed Urine Pregnancytest Poc (02/08/17 12:16) Ct Abd/Pel W Iv Contrast(Rout) (02/08/17 12:18) Iohexol 350 Inj (Omnipaque 350 Inj) (02/08/17 14:05) Sodium Chlor 0.9% 1000 Ml Inj (Ns 1000 M (02/08/17 14:14) Morphine Inj (Morphine Inj) (02/08/17 14:15) Ketorolac Inj (Toradol Inj) (02/08/17 15:00) Admit Order (Ed Use Only) (02/08/17 14:59) Labs Laboratory Tests Test 02/08/17 02/08/17 12:30 12:35 White Blood Count 9.8 TH/MM3 Red Blood Count 4.95 MIL/MM3 Hemoglobin 15.0 GM/DL Hematocrit 44.5 % Mean Corpuscular Volume 90.0 FL Mean Corpuscular Hemoglobin 30.3 PG Mean Corpuscular Hemoglobin 33.7 % Concent Red Cell Distribution Width 15.7 % Platelet Count 284 TH/MM3 Mean Platelet Volume 8.8 FL Neutrophils (%) (Auto) 67.3 % Lymphocytes (%) (Auto) 24.6 % Monocytes (%) (Auto) 5.4 % Eosinophils (%) (Auto) 2.3 % Basophils (%) (Auto) 0.4 % Neutrophils # (Auto) 6.6 TH/MM3 Lymphocytes # (Auto) 2.4 TH/MM3 Monocytes # (Auto) 0.5 TH/MM3 Eosinophils # (Auto) 0.2 TH/MM3 Basophils # (Auto) 0.0 TH/MM3 CBC Comment DIFF FINAL Differential Comment Sodium Level 139 MEQ/L Potassium Level 3.8 MEQ/L Chloride Level 107 MEQ/L Carbon Dioxide Level 24.1 MEQ/L Anion Gap 8 MEQ/L Blood Urea Nitrogen 10 MG/DL Creatinine 0.63 MG/DL Estimat Glomerular Filtration 120 ML/MIN Rate Random Glucose 111 MG/DL Lactic Acid Level 3.0 mmol/L Calcium Level 8.7 MG/DL Total Bilirubin 0.2 MG/DL Aspartate Amino Transf 8 U/L (AST/SGOT) Alanine Aminotransferase 18 U/L (ALT/SGPT) Alkaline Phosphatase 91 U/L Total Protein 7.5 GM/DL Albumin 3.4 GM/DL Lipase 98 U/L Urine Color YELLOW Urine Turbidity CLEAR Urine pH 7.0 Urine Specific [place] 1.008 Urine Protein NEG mg/dL Urine Glucose (UA) NEG mg/dL Urine Ketones NEG mg/dL Urine Occult Blood NEG Urine Nitrite NEG Urine Bilirubin NEG Urine Urobilinogen LESS THAN 2.0 MG/DL Urine Leukocyte Esterase NEG Urine RBC 3 /hpf Urine Squamous Epithelial <1 /hpf Cells Microscopic Urinalysis Comment CULT NOT INDICATED MDM Medical Decision Making Medical Screen Exam Complete: Yes Emergency Medical Condition: Yes Differential Diagnosis Pyelonephritis versus urethritis versus cystitis versus dehydration versus other Narrative Course 21-year-old female with a history of paraplegia and self-catheterization presents to the emergency department for evaluation of painful urination and right flank pain. Patient is afebrile. She is tachycardic with a heart rate of 133 bpm. Otherwise vital signs within normal limits. She has tenderness to palpation of the right flank. IV access is obtained, labs been drawn and sent. Patient is placed on cardiac telemetry and pulse oximetry monitoring. Patient is administered IV fluids, Zofran and morphine. I reviewed the EMR which shows she has been seen here for similar complaints over the past 3 months. CBC is unremarkable. CMP is unremarkable. Lactic acid is 3.0. Urinalysis is unremarkable. CT of the abdomen and pelvis with IV contrast is negative for any acute intra- abdominal process. There is mild diffuse nonspecific urinary bladder wall thickening. Probable small decubitus ulcer along the medial aspect of the left buttock. Degenerative changes and scoliosis of the thoracolumbar spine. Patient has required multiple doses of pain medication and still complains of pain. Her CT findings and symptoms are suspicious for interstitial cystitis. At this point we'll place her in observation for intractable pain. I discussed the case with my attending physician Dr. Gibson who is aware of the patients history, physical examination findings, and treatment plan. Physician Communication Physician Communication I spoke with Dr. Bar who agrees to admit patient to their service. Diagnosis Primary Impression: Intractable pain Admitting Information Admitting Physician Requests: Observation Twyla [place] Feb 08, 2017 12:18
[2017-02-08] MEDS ORDERED: ONDANSETRON HCL 4 MG/2 ML VIAL IVP ONE (12:30)
[2017-02-08] MEDS ORDERED: MORPHINE SULFATE 4 MG/ML INJ IV PUSH ONE ×2 (12:30→14:15)
[2017-02-08] MEDS ORDERED: SODIUM CHLORIDE 0.9% FLUSH 10 ML FLUSH IV FLUSH PRN (12:30)
[2017-02-08 12:51] LABS: AUTOMATED NEUTROPHIL # 6.6 TH/MM3 (1.8-7.7); BASOPHIL % 0.4 % (0.0-2.0); EOSINOPHIL # 0.2 TH/MM3 (0-0.4); EOSINOPHIL % 2.3 % (0.0-4.0); HEMATOCRIT 44.5 % (35.0-46.0); HEMO FLAGS DIFF FINAL; LYMPH % 24.6 % (9.0-44.0); LYMPHOCYTE # 2.4 TH/MM3 (1.0-4.8); MEAN CORPUSCULAR HEMOGLOBIN 30.3 PG (27.0-34.0); MEAN CORPUSCULAR HGB CONC 33.7 % (32.0-36.0); MONO % 5.4 % (0.0-8.0); NEUT % 67.3 % (16.0-70.0); PLATELET COUNT 284 TH/MM3 (150-450); RED BLOOD COUNT 4.95 MIL/MM3 (4.00-5.30); RED CELL DISTRIBUTION WIDTH 15.7 % (11.6-17.2); WHITE BLOOD COUNT 9.8 TH/MM3 (4.0-11.0)
[2017-02-08 13:13] LABS: BLOOD, URINE NEG (NEG); COMMENT (UR) CULT NOT INDICATED; CULTURE IF INDICATED CULT NOT INDICATED; GLUCOSE,URINE NEG (NEG); KETONE, URINE NEG (NEG); NITRITE,URINE NEG (NEG); SQUAMOUS EPITHELIAL CELL URINE <1 /hpf (0-5); URINE COLOR YELLOW (YELLW/STRAW)
[2017-02-08 13:15] LABS: ALT (GPT) 18 U/L (9-42); ANION GAP 8 MEQ/L (5-15); BICARBONATE 24.1 MEQ/L (21.0-32.0); BLOOD UREA NITROGEN 10 MG/DL (7-18); CHLORIDE 107 MEQ/L (98-107); GLOMERULAR FILTRATION RATE 120 ML/MIN (>89); POTASSIUM 3.8 MEQ/L (3.5-5.1); SODIUM (NA) 139 MEQ/L (136-145)
[2017-02-08 13:17] LABS: ALKALINE PHOSPHATASE 91 U/L (45-117); AST (GOT) 8 U/L (16-38); TOTAL BILIRUBIN ADULT 0.2 MG/DL (0.2-1.0)
[2017-02-08] MEDS ORDERED: IOHEXOL 350 MG/ML 10 ML VIAL (for RAD DIAG) IV ONE (14:05)
--- NOTE | 2017-02-08 14:31 | RADRPT ---
EXAM DATE/TIME: 02/08/2017 14:04 [facility] COMPARISON: CT ABDOMEN & PELVIS W/O CONTRAST, November 18, 2016, 13:38. CT ABDOMEN & PELVIS W CONTRAST, September, 15:27. INDICATIONS : Lower right side abdomen pain. IV CONTRAST: 93 cc Omnipaque 350 (iohexol) IV ORAL CONTRAST: No oral contrast ingested. RADIATION DOSE: 5.84 CTDIvol (mGy) MEDICAL HISTORY : recent UTI, Parapalegic SURGICAL HISTORY : ENCOUNTER: Initial ACUITY: 2 days PAIN SCALE: 2/10 LOCATION: lower quadrant and right flank pain. TECHNIQUE: Volumetric scanning of the abdomen and pelvis was performed. Using automated exposure control and ad justment of the mA and/or kV according to patient size, radiation dose was kept as low as reasonably achievable to obtain optimal diagnostic quality images. FINDINGS: LOWER LUNGS: The visualized lower lungs are clear. LIVER: Homogeneous density without lesion. There is no dilation of the biliary tree. No calcified gallston es. SPLEEN: Normal size without lesion. PANCREAS: Within normal limits. KIDNEYS: Normal in size and shape. There is no mass, stone or hydronephrosis. ADRENAL GLANDS: Within normal limits. VASCULAR: There is no aortic aneurysm. BOWEL/MESENTERY: The stomach, small bowel, and colon demonstrate no acute abnormality. There is no free intraperitone al air or fluid. The appendix is normal. ABDOMINAL WALL: Within normal limits. RETROPERITONEUM: There is no lymphadenopathy. BLADDER: Mild diffuse thickening of the urinary bladder wall is noted. REPRODUCTIVE: Within normal limits. INGUINAL: There is no lymphadenopathy or hernia. MUSCULOSKELETAL: Mild degenerative changes and scoliosis of the lumbar spine are noted. There is probable small decubi tus ulcer along the medial aspect of the left buttock. Clinical evaluation is recommended. CONCLUSION: 1. No acute intra-abdominal process. 2. Mild diffuse nonspecific urinary bladder wall thickening. 3. Probable small decubitus ulcer along the medial aspect of the left buttock. 4. Degenerative changes and scoliosis of the thoraco-lumbar spine. Deep Catherine MD on February 08, 2017 at 14:17 Board Certified Radiologist. This report was verified electronically.
[2017-02-08] MEDS ORDERED: KETOROLAC TROMETHAMINE 30 MG/ML (IVP) VIAL IV PUSH ONE (15:00)
--- NOTE | 2017-02-08 15:12 | HHI.HP ---
HPI Service Family Medicine Primary Care Physician Sandra Rangel MD Admission Diagnosis Intractable Pain, Dysuria Diagnoses: International Travel<30 Days: No Contact w/Intl Traveler<30days: No Known Affected Area: No History of Present Illness Ms. Gibson is a 21 y/o female presenting to [facility] ED with worsening Right sided flank pain. HPI: She reports chronic UTI infections for the past several months. More recently, she was on Macrobid up until January 28-. The next day, she reports cloudy urine and was than restarted on Macrobid (finished course on 02/08 at 0300 ). She reports vaginal, urethra, and bladder pain constantly. The right sided flank pain has gradually gotten worse over the past 1 week. She has become fearful to urinate because of the discomfort. She denies any blood in her urine , but it has become more dark, despite taking in PO fluid. Her lower back pain is worse when she is laying flat and is similar to her chronic pain. Patient says her home pain regimen is not working to control her pain. She has tried getting established with Urology but has been unsuccessful. Additionally she has 2 wounds located on her posterior thigh which she has noticed for several weeks and are not healing. She believes they could be cigarette reagan although she has no reagan on any clothing or bedsheets. ( Adair Bar MD R2) Review of Systems Other Denies headaches, has had subjective fevers Denies chest pain, palpitations and shortness of breath Admits to nausea, vomiting, lower abdominal pain but denies constipation or diarrhea, denies blood in stools or vomit Admits to dysuria, denies hematuria (Adair Bar MD R2) Past Family Social History Past Medical History Past medical history Spinal cord stroke May 07 2010 paralyzed from waist down Osteomyelitis buttocks, IV antibiotics and hospitalized x1 year Fecal impaction and C-diff infection 2014 Recurrent UTIs Chronic Back Pain Opiate dependence / misuse Past Surgical History Past surgical history Surgical debridement of osteo-2012 Gluteal flap 2013 (Adair Bar MD R2) Allergies: Coded Allergies: Atarax (Verified Allergy, Severe, 02/08/17) FACE SWELLING Ativan (Verified Allergy, Severe, Swelling, 02/08/17) Penicillin (Verified Allergy, Severe, 02/08/17) WAS TOLD NOT TO TAKE Vancomycin (Verified Allergy, Severe, 02/08/17) "RED MAN SYNDROME", Adhesives (Verified Allergy, Mild, 02/08/17) rash Family History Family history Father- lives in [place] living and healthy Mother living and healthy Younger brother and sister living and healthy Social History Social history Goes by the name Arik Lives with mom, baby sister and mom's boyfriend grew up in [place], [place] and [place] moved to [facility] 2013 Attended 2 years of high school, plans to get EGD, 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 SKIN: No rashes, ecchymoses or lesions. Cool and dry. HEAD: Atraumatic. Normocephalic. No temporal or scalp tenderness. EYES: Pupils equal round and reactive. Extraocular motions intact. No scleral icterus. No injection or drainage. ENT: Nose without bleeding, purulent drainage or septal hematoma. Throat without erythema, tonsillar hypertrophy or exudate. Uvula midline. Airway patent. NECK: Trachea midline. No JVD or lymphadenopathy. Supple, nontender, no meningeal signs. CARDIOVASCULAR: Regular rate and rhythm without murmurs, gallops, or rubs. RESPIRATORY: Clear to auscultation. Breath sounds equal bilaterally. No wheezes , rales, or rhonchi. GASTROINTESTINAL: Abdomen tender and tense to palpation in suprapubic region with distention. No hepato-splenomegaly, or palpable masses. No guarding. MUSCULOSKELETAL: Extremities without clubbing, cyanosis, or edema. No joint tenderness, effusion, or edema noted. No calf tenderness. Negative Homans sign bilaterally. 2 wounds approximately 1cm in diameter located on the posterior right thigh. Ulcerated center with erythematous margins, clear borders, no drainage. NEUROLOGICAL: Awake and alert. Cranial nerves II through XII intact. Motor and sensory grossly within normal limits. Five out of 5 muscle strength in all muscle groups. Normal speech. Laboratory Laboratory Tests Test 02/08/17 02/08/17 12:30 12:35 White Blood Count 9.8 Red Blood Count 4.95 Hemoglobin 15.0 Hematocrit 44.5 Mean Corpuscular Volume 90.0 Mean Corpuscular Hemoglobin 30.3 Mean Corpuscular Hemoglobin 33.7 Concent Red Cell Distribution Width 15.7 Platelet Count 284 Mean Platelet Volume 8.8 Neutrophils (%) (Auto) 67.3 Lymphocytes (%) (Auto) 24.6 Monocytes (%) (Auto) 5.4 Eosinophils (%) (Auto) 2.3 Basophils (%) (Auto) 0.4 Neutrophils # (Auto) 6.6 Lymphocytes # (Auto) 2.4 Monocytes # (Auto) 0.5 Eosinophils # (Auto) 0.2 Basophils # (Auto) 0.0 CBC Comment DIFF FINAL Differential Comment Sodium Level 139 Potassium Level 3.8 Chloride Level 107 Carbon Dioxide Level 24.1 Anion Gap 8 Blood Urea Nitrogen 10 Creatinine 0.63 Estimat Glomerular Filtration 120 Rate Random Glucose 111 Lactic Acid Level 3.0 Calcium Level 8.7 Total Bilirubin 0.2 Aspartate Amino Transf 8 (AST/SGOT) Alanine Aminotransferase 18 (ALT/SGPT) Alkaline Phosphatase 91 Total Protein 7.5 Albumin 3.4 Lipase 98 Urine Color YELLOW Urine Turbidity CLEAR Urine pH 7.0 Urine Specific [place] 1.008 Urine Protein NEG Urine Glucose (UA) NEG Urine Ketones NEG Urine Occult Blood NEG Urine Nitrite NEG Urine Bilirubin NEG Urine Urobilinogen LESS THAN 2.0 Urine Leukocyte Esterase NEG Urine RBC 3 Urine Squamous Epithelial <1 Cells Microscopic Urinalysis Comment CULT NOT INDICATED Date/Time Procedure Status Source Growth 02/08/17 12:30 Gram Stain Received Wound Thigh Pending 02/08/17 12:30 Wound Culture Received Wound Thigh Pending (Adair Bar MD R2) Result Diagram: 02/08/17 1230 02/08/17 1230 Imaging Last 72 hours Impressions Abdomen/Pelvis CT 02/08/17 1218 Signed Impressions: Service Date/Time: Wednesday, February 08, 2017 14:04 - CONCLUSION: 1. No acute intra-abdominal process. 2. Mild diffuse nonspecific urinary bladder wall thickening. 3. Probable small decubitus ulcer along the medial aspect of the left buttock. 4. Degenerative changes and scoliosis of the thoraco-lumbar spine. Deep Catherine MD (dAair Bar MD R2) Septic Shock Reassessment Heart: Regular rate and rhythm Lungs: Clear Skin: Warm (Adair Bar MD R2) Assessment and Plan Assessment and Plan 21 y/o female with PMHx of spinal stroke, paraplegia, neurogenic bladder requiring catheterization, who presents today due to suprapubic and right flank pain present for several weeks which has not been responding to home medications. 1. Right flank and suprapubic pain - UA on admission showed no evidence of acute infection, CT scan showed "mild diffuse bladder wall thickening" likely secondary to recurrent UTIs - Will use Toradol 30 mg q6h and Tylenol 650mg q4h as needed for pain - Will continue her home bowel regimen of docusate 1 tablet daily - Urology was consulted given CT findings, and history of persistent UTIs. We appreciate their recommendations. 2. Wounds on posterior right thigh Diff dx includes cigarette reagan, pressure ulcers, contact dermatitis. - Consult wound care, we appreciate their recommendations. 3. Chronic medical problems: - Asthma: continue home montelukast and albuterol - Anxiety and depression: continue home clonazepam, amitriptyline, paroxetine - GERD: continue home ranitidine 4. FEN - full diet - replete electrolytes as needed - no IV fluids at this time Code Status Full Code. (Adair Bar MD R2) Problem List: (1) Intractable pain Status: Acute (2) Paralysis of bladder Status: Chronic (3) Anxiety Status: Chronic (4) Nutrition, metabolism, and development symptoms Status: Acute (5) Spinal cord stroke Status: Chronic (6) Tobacco abuse Status: Chronic (Adair Bar MD R2) Adair Bar MD R2 Feb 08, 2017 15:12 Sandra Rangel MD Feb 09, 2017 16:40
[2017-02-08] MEDS ORDERED: traMADol HCL 50 MG TAB PO PRN (15:30)
[2017-02-08] MEDS ORDERED: ALBUTEROL SULFATE 90 MCG/ACT HFA 8 GM INHALER INH PRN (15:30)
[2017-02-08] MEDS ORDERED: KETOROLAC TROMETHAMINE 60 MG/2 ML (IM) VIAL IM PRN (15:45)
[2017-02-08] MEDS ORDERED: ACETAMINOPHEN 325 MG TAB PO PRN (15:45)
[2017-02-08] MEDS: KETOROLAC TROMETHAMINE 30 MG/ML (IVP) VIAL IV PUSH PRN (17:21)
[2017-02-08] MEDS: GABAPENTIN 300 MG CAP PO SCH (17:23)
[2017-02-08] MEDS: traMADol HCL 50 MG TAB PO SCH ×2 (17:23→23:13)
[2017-02-08] MEDS: clonazePAM 1 MG TAB PO SCH (17:23)
[2017-02-08] MEDS: DOCUSATE SODIUM 50 MG/SENNA 8.6 MG TAB PO SCH (17:23)
[2017-02-08] MEDS: PREGABALIN 100 MG CAP PO SCH (17:24)
--- NOTE | 2017-02-08 18:24 | MB ---
cc: KENIA HUANG DATE OF CONSULTATION 02/08/17 HISTORY OF PRESENT ILLNESS This is a 21-year-old female who had a history of a spinal stroke seven years ago and experienced paralysis from approximately the T9 level down. She has been on clean intermittent catheterization since that time. Over the last 3-6 months, she has noted increasing bladder pain and has had more recurrent urinary tract infections. She states that she has been on and off Macrobid during this time and her infections are still persistent. She feels that this recent urinary tract infection has persisted in causing her a lot of discomfort. Her urinalysis today does not indicate any evidence of infection. She states that she caths herself about six to eight times a day and obtains approximately 300-400 mL with each catheterization. She denies any history of stones or gross hematuria. She does have constipation and requires disimpacting at times. PAST MEDICAL HISTORY 1. Spinal cord stroke back in April of 2010 resulting in T9 paralysis 2. Osteomyelitis 3. Recurrent urinary tract infections with neurogenic bladder, 4. Chronic back pain, 5. History of opioid dependence currently on tramadol. PAST SURGICAL HISTORY 1. surgical debridement for osteomyelitis back in 2011 2. Gluteal flap in 2013. FAMILY HISTORY FH was reviewed and non-contributory. SOCIAL HISTORY Denies smoking or drinking. He currently lives with her mom. REVIEW OF SYSTEMS A 12-point review of systems was performed and per the HPI it is negative. PHYSICAL EXAMINATION VITAL SIGNS: Temperature is 98.7, heart rate 93, respiratory rate 16, 135/80 blood pressure. GENERAL: A well-developed, well-nourished 21-year-old female in no acute distress. HEENT: Normocephalic, atraumatic. Pupils equal, round, react to light. Extraocular movements intact. NECK: Supple. HEART: Regular rate and rhythm. LUNGS: Clear. ABDOMEN: Soft. There is tenderness over the bladder region. PELVIC: On pelvic exam, there is minimal tenderness on vaginal palpation, incomplete exam. There is right CVA tenderness noted. EXTREMITIES: No evidence of cyanosis, clubbing or edema. Neuro: CN II-X11 intact Psych: crying at times ROS: Bladder tenderness and right CVAT noted. All other symptoms were reviewed and were negative. LABORATORY DATA White count is 9.8, hemoglobin 15, hematocrit 44.5, platelet count 284. Sodium 139, potassium 3.8, chloride 107, CO2 24.1, BUN of 10, creatinine 0.6, glucose of 111. Urinalysis shows three red cells, nitrite is negative as well as leuko esterase is negative. Culture is not indicated. IMAGING STUDIES CT scan of the abdomen and pelvis with contrast showed some mild diffuse thickening of the urinary bladder which was nonspecific, degenerative changes and scoliosis of the thoracolumbar spine. ASSESSMENT A 21-year-old female with neurogenic bladder on clean catheterization with suprapubic pain as well as right-sided flank pain. No evidence of recurrent urinary tract infection is noted, as she was recently on antibiotics. She will need an outpatient workup involving cystoscopy and possible urodynamic studies. I would recommend ID consult given that she has been on chronic antibiotics unnecessarily for suspected UTIs, but is developing resistance. Would only treat febrile urinary tract infections in a patient with a neurogenic bladder. RECOMMENDATIONS Belladonna and opioid suppositories for pelvic pain and can follow up with urology as an outpatient. Thank you for this consult and allowing me to proceed in the care of this patient. Kenia العلي /5:51 PM /6:16 PM ZACK
[2017-02-08] MEDS: BELLADONNA ALKALOIDS/OPIUM 60 MG SUPP RECTAL SCH ×2 (18:33→23:13)
[2017-02-08] MEDS ORDERED: LEVONORGESTREL ETHINYL ESTRADIOL PO SCH (21:00)
[2017-02-08] MEDS: PHENAZOPYRIDINE HCL 200 MG TAB PO SCH (21:23)
[2017-02-08] MEDS: AMITRIPTYLINE HCL 50 MG TAB PO SCH (21:24)
[2017-02-08] MEDS: MONTELUKAST SODIUM 10 MG TAB PO SCH (21:24)
[2017-02-08] MEDS: SODIUM CHLORIDE 0.9% FLUSH 10 ML FLUSH IV FLUSH SCH (21:24)
[2017-02-08] MEDS: FAMOTIDINE 20 MG TAB PO SCH (21:25)
[2017-02-08] MEDS: BACLOFEN 20 MG TAB PO SCH (21:25)
[2017-02-08] MEDS: ONDANSETRON HCL 4 MG/2 ML VIAL IV PUSH PRN (23:14)
[2017-02-08] MEDS: SODIUM CHLORIDE 0.9% FLUSH 10 ML FLUSH IV FLUSH PRN (23:14)
[2017-02-09] MEDS: KETOROLAC TROMETHAMINE 30 MG/ML (IVP) VIAL IV PUSH PRN ×4 (00:42→20:08)
[2017-02-09 03:49] VITALS: BP 126/84; PULSE 60; RESP 20; TEMP 96.2; O2SAT 99
[2017-02-09] MEDS: PHENAZOPYRIDINE HCL 200 MG TAB PO SCH ×3 (05:01→20:09)
[2017-02-09] MEDS: traMADol HCL 50 MG TAB PO SCH ×4 (05:02→23:00)
[2017-02-09] MEDS: BELLADONNA ALKALOIDS/OPIUM 60 MG SUPP RECTAL SCH ×4 (05:25→20:08)
[2017-02-09 08:00] VITALS: BP 138/88; PULSE 79; RESP 20; TEMP 97; O2SAT 100
[2017-02-09 08:10] LABS: AUTOMATED NEUTROPHIL # 2.8 TH/MM3 (1.8-7.7); BASOPHIL % 0.7 % (0.0-2.0); EOSINOPHIL # 0.3 TH/MM3 (0-0.4); EOSINOPHIL % 4.5 % (0.0-4.0); HEMATOCRIT 44.1 % (35.0-46.0); HEMO FLAGS DIFF FINAL; LYMPHOCYTE # 3.3 TH/MM3 (1.0-4.8); MEAN CORPUSCULAR HEMOGLOBIN 29.6 PG (27.0-34.0); MEAN CORPUSCULAR HGB CONC 32.2 % (32.0-36.0); MONO % 7.2 % (0.0-8.0); NEUT % 40.6 % (16.0-70.0); PLATELET COUNT 253 TH/MM3 (150-450); RED BLOOD COUNT 4.79 MIL/MM3 (4.00-5.30); RED CELL DISTRIBUTION WIDTH 15.7 % (11.6-17.2); WHITE BLOOD COUNT 6.9 TH/MM3 (4.0-11.0)
[2017-02-09] MEDS: SODIUM CHLORIDE 0.9% FLUSH 10 ML FLUSH IV FLUSH SCH ×2 (08:34→20:09)
[2017-02-09] MEDS: clonazePAM 1 MG TAB PO SCH ×3 (08:35→18:09)
[2017-02-09] MEDS: PREGABALIN 100 MG CAP PO SCH ×3 (08:35→18:09)
[2017-02-09] MEDS: BACLOFEN 20 MG TAB PO SCH ×2 (08:35→20:09)
[2017-02-09] MEDS: FAMOTIDINE 20 MG TAB PO SCH ×2 (08:36→20:09)
[2017-02-09] MEDS: DOCUSATE SODIUM 50 MG/SENNA 8.6 MG TAB PO SCH (08:36)
[2017-02-09] MEDS: GABAPENTIN 300 MG CAP PO SCH ×3 (08:36→18:09)
[2017-02-09] MEDS: PARoxetine HCL 20 MG TAB PO SCH (08:36)
[2017-02-09 08:42] LABS: BICARBONATE 25.4 MEQ/L (21.0-32.0); POTASSIUM 3.3 MEQ/L (3.5-5.1)
--- NOTE | 2017-02-09 08:43 | HHI.FPPN ---
Subjective Subjective Patient seen and examined with the resident team this morning. Case reviewed and discussed. Please refer to resident H&P for further details regarding history of present illness, ROS, past medical and surgical history, family and social history. In summary, patient is a 21-year-old unfortunate paraplegic who has a neurogenic bladder and self catheterizes. She presented to the emergency room after worsening suprapubic pain and back pain. She also reported 2 circumferential wounds on her R inner thigh which she noticed prior to the day of admission. No fevers, chills. Attempts to get patient to see urology as an outpatient have been unsuccessful. [facility] Objective Objective Last Impressions Abdomen/Pelvis CT 02/08/17 1218 Signed Impressions: Service Date/Time: Wednesday, February 08, 2017 14:04 - CONCLUSION: 1. No acute intra-abdominal process. 2. Mild diffuse nonspecific urinary bladder wall thickening. 3. Probable small decubitus ulcer along the medial aspect of the left buttock. 4. Degenerative changes and scoliosis of the thoraco-lumbar spine. Deep Catherine MD Laboratory Tests - Abnormals Test 02/08/17 02/09/17 12:30 07:35 Random Glucose 111 MG/DL Lactic Acid Level 3.0 mmol/L Aspartate Amino Transf 8 U/L (AST/SGOT) Lymphocytes (%) (Auto) 47.0 % Eosinophils (%) (Auto) 4.5 % Vital Signs 02/08/17 02/08/17 02/08/17 02/08/17 11:37 12:39 12:45 14:25 Temp 98.7 Pulse 133 98 93 Resp 18 18 16 B/P 146/75 125/68 135/80 Pulse Ox 99 99 98 98 02/08/17 02/08/17 02/08/17 02/08/17 14:58 17:54 19:38 23:31 Temp 98.0 96.9 97.2 Pulse 90 75 79 Resp 16 18 20 20 B/P 136/75 145/83 135/94 Pulse Ox 100 99 97 02/09/17 02/09/17 02/09/17 01:50 03:49 06:06 Temp 96.2 Pulse 60 Resp 16 20 16 B/P 126/84 Pulse Ox 99 INTAKE & OUTPUT 02/09/17 07:00 Output Total 2800 ml Balance -2800 ml Physical exam GENERAL: wdwn female, sitting in bed, NAD SKIN: Warm and dry. There are 2- 1-2cm circular lesions, non-draining on R inner thigh. HEAD: Normocephalic. AT EYES: No scleral icterus. No injection or drainage. NECK: Supple, trachea midline. No JVD or lymphadenopathy. CARDIOVASCULAR: Regular rate and rhythm without murmurs, gallops, or rubs. RESPIRATORY: Breath sounds equal bilaterally. No accessory muscle use. GASTROINTESTINAL: Abdomen soft, overweight, nondistended. There is suprapubic tenderness MUSCULOSKELETAL: No cyanosis, or edema. Atrophic LE secondary to paraplegia. BACK: Tender to palpation over R paralumbar muscles without obvious deformity. No CVA tenderness. Assessment Assessment 21yoF with: Intractable pain Neurogenic bladder with recurrent symptomatic UTI Paraplegia Leg wounds Depression/Anxiety PLAN PLAN Urology consult-- appreciate Dr. Guzman ID consult Pain control CT reviewed Resume home meds as appropriate Counseled on tobacco cessation Patient seen and examined. Case reviewed and discussed Agree with plan of care as discussed with me and documented in the resident note. Sandra Rangel MD Feb 09, 2017 08:43
[2017-02-09] MEDS ORDERED: BELLADONNA ALKALOIDS/OPIUM 60 MG SUPP RECTAL ONE (10:30)
[2017-02-09] MEDS ORDERED: LIDOCAINE 2% JELLY 5 ML TUBE TOPICAL PRN (10:30)
[2017-02-09] MEDS ORDERED: KETOROLAC TROMETHAMINE 30 MG/ML (IVP) VIAL IV PUSH PRN ×3 (11:15→17:15)
[2017-02-09 12:06] VITALS: BP 136/74; PULSE 88; RESP 18; TEMP 98.2; O2SAT 99
[2017-02-09] MEDS: SILVER SULFADIAZINE 1% CR 400 GM JAR TOPICAL SCH (12:37)
[2017-02-09] MEDS: ONDANSETRON HCL 4 MG/2 ML VIAL IV PUSH PRN ×2 (12:39→18:47)
[2017-02-09 15:54] VITALS: BP 115/79; PULSE 92; RESP 18; TEMP 97.9; O2SAT 97
--- NOTE | 2017-02-09 16:41 | HHI.DCPOC ---
Discharge Care Plan Diagnosis: (1) UTI (urinary tract infection) Goals to Promote Your Health * To prevent worsening of your condition and complications * To maintain your health at the optimal level Directions to Meet Your Goals Take your medications as prescribed Follow your dietary instruction Follow activity as directed Keep your appointments as scheduled Take your immunizations and boosters as scheduled If your symptoms worsen call your PCP, if no PCP go to Urgent Care Center or Emergency Room Smoking is Dangerous to Your Health. Avoid second hand smoke Call the 24-hour hour crisis hotline for domestic abuse at Adair Bar MD R2 Feb 09, 2017 16:41 Sandra Rangel MD Feb 09, 2017 17:30
--- NOTE | 2017-02-09 16:57 | PD.WCN.NOT ---
Wound Consult Description: Patient seen in H pod for wound management to R posterior thigh ulcerations x 2. Patient is able to position self to R side with minimal assist from policy writer. Removed gauze pad dressing in place to reveal wounds. Medial R posterior thigh wound is measuring 0.9 x 1.2 x slough. Wound bed is noted with 100% coverage of yellow adherent slough. Wound bed appears dry with no active drainage. Cleansed wound with normal saline.R posterior thigh wound measures 1.2 x 1.2x slough. Wound bed is also noted with 100% coverage of adherent yellow slough.Wound bed also appears dry with no active drainage. Cleansed wound with normal saline. Covered both wounds with dry 4x4 gauze. Applied skin prep to periwound before securing dressing with paper tape. Communicated with: Call placed to Doctor Dipika for orders. Communicated recommendations and findings with NUNO Malagon CDU Recommendation: Recommend to d/c Silvadene cream to wound bed. Please cleanse wounds to posterior R thigh with normal saline only. Apply Santyl ointment marcelo thick to wound bed and cover with dry cover dressing. Please change dressing daily. Do not use wound cleanser with Santyl ointment. Ines Leger [facility] Feb 09, 2017 16:57
[2017-02-09] MEDS: HYDROCORTISONE 2.5% CR (ANUSOL HC) 30 GM TUBE RECTAL PRN (20:09)
[2017-02-09] MEDS: MONTELUKAST SODIUM 10 MG TAB PO SCH (20:09)
[2017-02-09] MEDS: AMITRIPTYLINE HCL 50 MG TAB PO SCH (20:09)
[2017-02-09 23:01] VITALS: BP 109/59; PULSE 72; RESP 18; TEMP 98.2; O2SAT 95
[2017-02-10] MEDS: KETOROLAC TROMETHAMINE 30 MG/ML (IVP) VIAL IV PUSH PRN ×4 (01:55→21:43)
[2017-02-10] MEDS: BELLADONNA ALKALOIDS/OPIUM 60 MG SUPP RECTAL SCH ×4 (01:55→21:39)
[2017-02-10] MEDS: SODIUM CHLORIDE 0.9% FLUSH 10 ML FLUSH IV FLUSH PRN (01:55)
[2017-02-10] MEDS: ONDANSETRON HCL 4 MG/2 ML VIAL IV PUSH PRN ×3 (03:06→16:45)
[2017-02-10 04:20] VITALS: BP 95/45; PULSE 64; RESP 20; TEMP 96.6; O2SAT 96
[2017-02-10] MEDS: PHENAZOPYRIDINE HCL 200 MG TAB PO SCH ×3 (05:34→21:39)
[2017-02-10] MEDS: traMADol HCL 50 MG TAB PO SCH ×3 (05:34→17:31)
[2017-02-10 07:29] VITALS: BP 134/70; PULSE 92; RESP 18; TEMP 99.3; O2SAT 94
--- NOTE | 2017-02-10 08:10 | HHI.FPPN ---
Subjective Remarks Patient still with chronic back pain and new leg pain that "feels like someone is stabbing me in my legs." She slept better last night getting 4 hours of sleep and the B&O suppositories are helping. She is requesting something stronger for her pain. Has an apt on February 19 at 1:[address] Guzman. ( Adair Bar MD R2) Objective Vitals Vital Signs Date Time Temp Pulse Resp B/P Pulse Ox O2 Delivery O2 Flow Rate FiO2 02/10/17 07:29 99.3 92 18 134/70 94 02/10/17 06:45 16 02/10/17 04:20 96.6 64 20 95/45 96 02/10/17 03:04 16 02/09/17 23:01 98.2 72 18 109/59 95 02/09/17 20:25 16 02/09/17 15:54 97.9 92 18 115/79 97 02/09/17 12:06 98.2 88 18 136/74 99 I/O 02/09/17 02/09/17 02/09/17 02/10/17 02/10/17 02/10/17 07:00 15:00 23:00 07:00 15:00 23:00 Output Total 2000 ml 700 ml 250 ml Balance -2000 ml -700 ml -250 ml Output Urine Total 2000 ml 700 ml 250 ml (Adair Bar MD R2) Result Diagram: 02/09/1773402/09/1735 Objective Remarks GEN: NAD, appears HEENT: PERRL, EOM intact CV: RRR MSK: Ulcers on right lower extremities with central eschar, improved since yesterday, not draining, no surrounding erythema. Ext: 0/5 strength in lower extremities. (Adair Bar MD R2) A/P Assessment and Plan 21 y/o female with PMHx of spinal stroke, paraplegia, neurogenic bladder requiring catheterization, who presents today due to suprapubic and right flank pain present for several weeks which has not been responding to home medications. 1. Right flank and suprapubic pain - UA on admission showed no evidence of acute infection, CT scan showed "mild diffuse bladder wall thickening" likely secondary to recurrent UTIs - Will use Toradol 30 mg q6h and Tylenol 650mg q4h as needed for pain - Will continue her home bowel regimen of docusate 1 tablet daily - Urology was consulted given CT findings, and history of persistent UTIs. Recommend out patient cystoscopy. She has a scheduled apt on February [address] Guzman. We appreciate greatly their help in management of Mrs. Gibson. 2. Wounds on posterior right thigh Diff dx includes cigarette reagan, pressure ulcers, contact dermatitis. - Consult wound care, we appreciate their recommendations. 3. Chronic medical problems: - Asthma: continue home montelukast and albuterol - Anxiety and depression: continue home clonazepam, amitriptyline, paroxetine - GERD: continue home ranitidine 4. FEN - full diet - replete electrolytes as needed - no IV fluids at this time (Adair Bar MD R2) Attending Attestation Patient seen and examined. Case reviewed and discussed Agree with plan of care as discussed with me and documented in the resident note. (Sandra Rangel MD) Problem List: (1) Intractable pain Status: Acute (2) Paralysis of bladder Status: Chronic (3) Anxiety Status: Chronic (4) Nutrition, metabolism, and development symptoms Status: Acute (5) Spinal cord stroke Status: Chronic (6) Tobacco abuse Status: Chronic (Adair Bar MD R2) Adair Bar MD R2 Feb 10, 2017 08:10 Sandra Rangel MD Feb 14, 2017 07:56
[2017-02-10] MEDS ORDERED: CLON1TAB PO (08:37)
[2017-02-10] MEDS ORDERED: SEASTAB2 PO (08:39)
[2017-02-10] MEDS: BACLOFEN 20 MG TAB PO SCH ×2 (09:45→21:40)
[2017-02-10] MEDS: clonazePAM 1 MG TAB PO SCH ×3 (09:45→17:31)
[2017-02-10] MEDS: GABAPENTIN 300 MG CAP PO SCH ×3 (09:45→17:31)
[2017-02-10] MEDS: DOCUSATE SODIUM 50 MG/SENNA 8.6 MG TAB PO SCH (09:45)
[2017-02-10] MEDS: PREGABALIN 100 MG CAP PO SCH ×3 (09:45→17:32)
[2017-02-10] MEDS: FAMOTIDINE 20 MG TAB PO SCH ×2 (09:46→21:40)
[2017-02-10] MEDS: PARoxetine HCL 20 MG TAB PO SCH (09:46)
[2017-02-10] MEDS: SILVER SULFADIAZINE 1% CR 400 GM JAR TOPICAL SCH (09:46)
[2017-02-10] MEDS: SODIUM CHLORIDE 0.9% FLUSH 10 ML FLUSH IV FLUSH SCH ×2 (09:46→21:40)
--- NOTE | 2017-02-10 10:31 | HHI.DS ---
Discharge Summary Admission Date Feb 08, 2017 at 15:02 Admitting Diagnosis Intractable Pain, Dysuria (1) Intractable pain (2) Paralysis of bladder (3) Anxiety (4) Nutrition, metabolism, and development symptoms (5) Spinal cord stroke (6) Tobacco abuse Brief History Ms. Gibson is a 21 y/o female presenting to [place] ED with worsening Right sided flank pain. HPI: She reports chronic UTI infections for the past several months. More recently, she was on Macrobid up until January 28-. The next day, she reports cloudy urine and was than restarted on Macrobid (finished course on 02/08 at 0300 ). She reports vaginal, urethra, and bladder pain constantly. The right sided flank pain has gradually gotten worse over the past 1 week. She has become fearful to urinate because of the discomfort. She denies any blood in her urine , but it has become more dark, despite taking in PO fluid. Her lower back pain is worse when she is laying flat and is similar to her chronic pain. Patient says her home pain regimen is not working to control her pain. She has tried getting established with Urology but has been unsuccessful. Additionally she has 2 wounds located on her posterior thigh which she has noticed for several weeks and are not healing. She believes they could be cigarette reagan although she has no reagan on any clothing or bedsheets. CBC/BMP: 02/09/17 0735 02/09/17 0735 Significant Findings Laboratory Tests Test 02/08/17 02/09/17 12:30 07:35 Random Glucose 111 MG/DL 72 MG/DL (74-106) (74-106) Lactic Acid Level 3.0 mmol/L (0.4-2.0) Aspartate Amino Transf 8 U/L (16-38) (AST/SGOT) Lymphocytes (%) (Auto) 47.0 % (9.0-44.0) Eosinophils (%) (Auto) 4.5 % (0.0-4.0) Potassium Level 3.3 MEQ/L (3.5-5.1) Blood Urea Nitrogen 4 MG/DL (7-18) PE at Discharge GEN: NAD, appears HEENT: PERRL, EOM intact CV: RRR MSK: Ulcers on right lower extremities with central eschar, improved since yesterday, not draining, no surrounding erythema. Ext: 0/5 strength in lower extremities. Hospital Course PLEASE SEE DISCHARGE SUMMARY PROVIDED BY DR. MANTILLA. Patient is a 21-year-old female, unfortunately who suffered a spinal injury and has paraplegia, requiring self catheterizations. She was admitted to the hospital with intractable back pain, despite home by mouth medications. A CT scan showed "no acute into abdominal process", however it was significant for "mild diffuse nonspecific urinary bladder wall thickening. Degenerative changes and scoliosis of the thoracolumbar spine." Her pain was controlled with IV Toradol, as well as B&O suppositories. Urology evaluated her, and recommended outpatient cystoscopy. Infectious disease was consulted, regarding the use of prophylactic antibiotic, given frequent UTIs that are resistant to multiple organisms. He has an appointment on February 19, at 1:[address] Guzman, to schedule an outpatient cystoscopy. Discharge Disposition: Discharge Home Discharge Instructions DIET: Follow Instructions for: As Tolerated, No Restrictions Activities you can perform: Regular-No Restrictions Continued Medications: Albuterol 8.5 GM Inh (Proair Hfa 8.5 GM Inh) 90 Mcg/Act Aer 2 PUFF INH Q4-6H 108 mcg/actuation PRN SHORTNESS OF BREATH #1 Ref 6 INHALER Amitriptyline HCl (Elavil) 25 Mg Tab 50 MG PO HS #90 Ref 12 TAB Baclofen (Baclofen) 20 Mg Tab 40 MG PO BID Muscle Spasm #60 Ref 6 TAB Epinephrine Inj (Epipen 2-Chau Inj) 0.3 Mg/0.3 Ml Pfpen 0.3 MG IM ONCE PRN ALLERGIC REACTION #1 Ref 0 PACK Fluconazole (Diflucan) 200 Mg Tab 200 MG PO DAILY Infection #7 Ref 0 TAB Gabapentin (Gabapentin) 600 Mg Tab 1200 MG PO TID #270 Ref 12 TAB Hydrocortisone Rectal 2.5% (Proctosol Hc 2.5%) 2.5% Cream 1 APPLIC RECTAL BID PRN PAIN/INFLAMMATION #2 Ref 12 TUBE Ibuprofen (Ibuprofen) 800 Mg Tab 800 MG PO Q6HR PRN PAIN #30 Ref 0 TAB Levonorgestrel-Ethinyl Estradiol (Seasonique) 0.15-0.03-0.01 Mg Tab 1 TAB PO HS Control #91 Ref 0 TAB Montelukast (Singulair) 10 Mg Tab 10 MG PO HS #30 Ref 0 TAB Ondansetron Odt (Zofran Odt) 8 Mg Tab 8 MG SL Q8H PRN NAUSEA OR VOMITING #30 Ref 6 TAB Paroxetine (Paxil) 20 Mg Tab 20 MG PO DAILY #30 Ref 12 TAB Pregabalin (Lyrica) 200 Mg Cap 200 MG PO TID #90 Ref 3 CAP Ranitidine (Ranitidine) 150 Mg Tab 150 MG PO HS #90 Ref 12 TAB Sennosides-Docusate Sodium (Kathy-Colace) 8.6-50 Mg Tab 1 TAB PO DAILY Constipation #60 Ref 0 TAB Tramadol (Ultram) 50 Mg Tab 100 MG PO Q6HR PRN PAIN #240 Ref 3 TAB Adair Bar MD R2 Feb 10, 2017 10:31
[2017-02-10 11:35] VITALS: BP 133/99; PULSE 88; RESP 18; TEMP 100.2; O2SAT 98
[2017-02-10 12:15] LABS: BACTERIA, URINE MANY /hpf; BLOOD, URINE NEG (NEG); COMMENT (UR) CULTURE INDICATED; CULTURE IF INDICATED CULTURE INDICATED; GLUCOSE,URINE NEG (NEG); KETONE, URINE NEG (NEG); MUCUS URINE FEW /lpf (OCC); PH, URINE 6.5 (5.0-8.5); SQUAMOUS EPITHELIAL CELL URINE <1 /hpf (0-5)
[2017-02-10 12:19] LABS: NITRITE,URINE POS (NEG); URINE COLOR DARK-ORANGE (YELLW/STRAW)
[2017-02-10 15:35] VITALS: BP 136/74; PULSE 90; RESP 18; TEMP 97.6; O2SAT 99
--- NOTE | 2017-02-10 16:51 | MB ---
cc: AYAAN MCCORD MD DATE OF CONSULTATION: 02/10/[address] Bar REASON FOR CONSULTATION: Persistent UTI. Given self catheterization and resistant organisms. Need for prophylactic antibiotics on discharge. 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 The patient has had multiple urinary tract infections. She does self-catheterization to empty the bladder. The patient has been recently treated with Macrobid for urinary tract infection and she tells me that she stopped the Macrobid and 01/28 and then the urine became very cloudy and another urine culture was taken and she was put back on Macrobid again. She finished a course of Macrobid four days ago. The last few we have available on 02/08 was unremarkable and a culture was not done. Prior to that she had a urinary tract infection due to E-coli in October 2016 and August 2016. The patient tells me that she developed pain in her vagina and lower abdomen area and also right flank pain and she was brought to emergency department for evaluation. A CT scan of the abdomen was performed and showed no acute intra-abdominal process and mild diffuse nonspecific urinary bladder wall thickening. The patient has two excoriated punctate skin lesions at the left posterior thigh. This has a red and surrounding rim of erythema. There is no drainage visible. The culture was taken from that site and has group D enterococcus. The blood cultures were obtained yesterday. The patient has been afebrile. White blood cell count is normal. She tells me that she has pain in her vagina, urethra and kidney. She states that she has the suppository that is leaking from the rectum and into the vagina. The last urine cultures that were positive with E-coli revealed sensitivity to most antibiotics. The last urine culture was taken with E-coli was resistant to most oral antibiotics. PAST MEDICAL HISTORY 1. Spinal cord stroke with paralysis from the waist down. 2. History of osteomyelitis of the buttock. 3. Recurrent urinary tract infection 4. Chronic back pain. 5. History of gluteal flap in 2013. ALLERGIES PENICILLIN VANCOMYCIN ATIVAN ATARAX MEDICATIONS 1. Paxil 2. Toradol 3. Peridium 4. Baclofen. 5. Singulair 6. Elavil 7. Neurontin. 8. Klonopin. 9. Lyrica. 10. Ultram 11. Kathy-Colace. SOCIAL HISTORY The patient smokes a pack of cigarettes a day. Denies alcohol use. Denies illicit drugs. FAMILY HISTORY Noncontributory. REVIEW OF SYSTEMS Negative except for pain at the lower abdomen. PHYSICAL EXAMINATION: IN GENERAL: The physical exam this is a well-developed female who is in no acute distress. She is awake and alert and oriented. VITAL SIGNS: Include temperature 99.3, BP 134/70, respirations 1890, 692. HEAD, EYES, EARS, NOSE, AND THROAT: Head is atraumatic. Extraocular movements grossly intact, pupils reactive to light. No icterus. Oropharynx no visible lesions. NECK: The neck is supple without adenopathy. LUNGS: Clear breath sounds HEART: Regular rate and rhythm. ABDOMEN: Bowel sounds present but diminished, mildly distended. tenderness on palpation over the lower abdomen above the suprapubic area. RECTUM: Rectal not performed. EXTREMITIES: No clubbing or cyanosis or edema. Two were excoriated lesions at the left posterior thigh with erythematous rim and dry central area without drainage. SKIN: No diffuse rash. NEUROLOGIC: The patient is paralyzed from the waist down. PSYCHIATRIC: The patient is calm and cooperative. LABORATORY DATA WBC 6.9, platelets 253, 47% lymphocytes, 40% neutrophils, 7% monocytes, 4% eosinophils, creatinine 0.54, BUN 4, sodium 137 on The culture of the swab from the thigh as group D enterococcus. Blood culture no growth in one day. IMPRESSION: 1. Patient with history of recurrent urinary tract infections and has been treated with antibiotics. More recently treated with Macrobid. The urinalysis was unremarkable on last check 02/08/2017. 2. Recurrent urinary infection in patient who has to has to self-catheterize to empty the bladder. The last urinalysis did not reveal evidence of infection. RECOMMENDATIONS Obtain a new urinalysis and culture if necessary. I would advise against treating the patient as prophylactic antibiotics since she is only likely to develop more resistant organisms. She may have a UTI which is asymptomatic, but it is better to get culture and focus antibiotic on the culture results if she is showing significant symptomatology. I have explained to her that using antibiotics unnecessarily will lead to more resistance of organisms and therefore she might be at risk of developing severe infection with resistant bacteria. I have ordered a new urinalysis and if that is unremarkable I would not put her on any antibiotics. If the urinalysis is remarkable culture can taken and antibiotics can be focused on the organism which is recovered. She can have periodic urine cultures in the future when she has symptoms suggesting infection and antibiotics to treat this infection. Thank you for this consultation. Ayaan Mccord MD FD/maxx /11:14 AM /3:16 PM ZACK
[2017-02-10 19:57] VITALS: BP 124/78; PULSE 96; RESP 16; TEMP 98.6; O2SAT 96
[2017-02-10] MEDS: AMITRIPTYLINE HCL 50 MG TAB PO SCH (21:40)
[2017-02-10] MEDS: MONTELUKAST SODIUM 10 MG TAB PO SCH (21:40)
[2017-02-11] VITALS: BP 99/60; PULSE 94; RESP 21; TEMP 98.9; O2SAT 95
[2017-02-11] MEDS: BELLADONNA ALKALOIDS/OPIUM 60 MG SUPP RECTAL SCH ×4 (01:03→20:10)
[2017-02-11 04:00] VITALS: BP 115/69; PULSE 76; RESP 20; TEMP 98.1; O2SAT 97
[2017-02-11] MEDS: PHENAZOPYRIDINE HCL 200 MG TAB PO SCH ×3 (05:21→21:33)
[2017-02-11] MEDS: traMADol HCL 50 MG TAB PO SCH ×2 (05:22)
[2017-02-11] MEDS: KETOROLAC TROMETHAMINE 30 MG/ML (IVP) VIAL IV PUSH PRN ×4 (05:23→23:02)
[2017-02-11 07:39] VITALS: BP 112/78; PULSE 100; RESP 18; TEMP 98; O2SAT 93
[2017-02-11] MEDS: BACLOFEN 20 MG TAB PO SCH ×2 (08:13→21:33)
[2017-02-11] MEDS: FAMOTIDINE 20 MG TAB PO SCH ×2 (08:13→21:33)
[2017-02-11] MEDS: PARoxetine HCL 20 MG TAB PO SCH (08:14)
[2017-02-11] MEDS: clonazePAM 1 MG TAB PO SCH ×3 (08:14→17:17)
[2017-02-11] MEDS: DOCUSATE SODIUM 50 MG/SENNA 8.6 MG TAB PO SCH (08:14)
[2017-02-11] MEDS: PREGABALIN 100 MG CAP PO SCH ×3 (08:15→17:17)
[2017-02-11] MEDS: GABAPENTIN 300 MG CAP PO SCH ×3 (08:16→17:17)
[2017-02-11] MEDS: SILVER SULFADIAZINE 1% CR 400 GM JAR TOPICAL SCH (10:09)
[2017-02-11] MEDS: SODIUM CHLORIDE 0.9% FLUSH 10 ML FLUSH IV FLUSH SCH ×2 (10:09→21:00)
[2017-02-11] MEDS: ONDANSETRON HCL 4 MG/2 ML VIAL IV PUSH PRN ×2 (10:10→17:18)
[2017-02-11] MEDS: oxyCODONE/ACETAMINOPHEN 5 MG/325 MG TAB PO PRN ×3 (10:11→23:02)
--- NOTE | 2017-02-11 10:36 | HHI.FPPN ---
Subjective Remarks No acute events overnight. Afebrile, vital signs stable. Patient is tearful when seen today, complaining of severe pain in her vagina, bladder and lower back. She states that her belladonna suppositories have not been working and are currently leaking. She is unsure of how much she is absorbed. (Melody Ambrose MD R3) Objective Vitals Vital Signs Date Time Temp Pulse Resp B/P Pulse Ox O2 Delivery O2 Flow Rate FiO2 02/11/17 07:39 98.0 100 18 112/78 93 02/11/17 04:00 98.1 76 20 115/69 97 02/11/17 00:00 98.9 94 21 99/60 95 02/10/17 19:57 98.6 96 16 124/78 96 02/10/17 15:35 97.6 90 18 136/74 99 02/10/17 11:35 100.2 88 18 133/99 98 (Melody Ambrose MD R3) Result Diagram: 02/09/1735 02/09/17 0735 Objective Remarks GEN: NAD, appears HEENT: PERRL, EOM intact CV: RRR MSK: Ulcers on right lower extremities with central eschar, not draining, no surrounding erythema. Ext: 0/5 strength in lower extremities. (Melody Ambrose MD R3) A/P Assessment and Plan 21 y/o female with PMHx of spinal stroke, paraplegia, neurogenic bladder requiring catheterization, who presents today due to suprapubic and right flank pain present for several weeks which has not been responding to home medications. 1. Right flank and suprapubic pain/UTI - UA on admission showed no evidence of acute infection, CT scan showed "mild diffuse bladder wall thickening" likely secondary to recurrent UTIs. Patient with repeat urinalysis showing many bacteria, high leukocytes, large leukocyte esterase and positive nitrites. Culture positive for greater than 100,000 gram- negative colony forming units. Infectious disease on board as patient has a history of multiple UTIs with high bacterial resistance. Awaiting culture results for antibiotic selection. Appreciate ID recommendations. - Will use Toradol 30 mg q6h, Tylenol 650mg q4h as needed for pain. Added Percocet as patient with urinary tract infection. - Will continue her home bowel regimen of docusate 1 tablet daily - Urology was consulted given CT findings, and history of persistent UTIs. Recommend out patient cystoscopy. She has a scheduled apt on March [address] Guzman. We appreciate greatly their help in management of Mrs. Gibson. 2. Wounds on posterior right thigh Diff dx includes cigarette reagan, pressure ulcers, contact dermatitis. - Consult wound care, we appreciate their recommendations. 3. Chronic medical problems: - Asthma: continue home montelukast and albuterol - Anxiety and depression: continue home clonazepam, amitriptyline, paroxetine - GERD: continue home ranitidine 4. FEN - full diet - replete electrolytes as needed - no IV fluids at this time Discharge Planning To home once cultures result, likely tomorrow (Melody Ambrose MD R3) Attending Attestation Patient seen and examined with the resident team. Case reviewed and discussed Agree with plan of care as discussed with me and documented in the resident note. Await urine culture results. Has scheduled appt with urology for follow-up. (Sandra Rangel MD) Problem List: (1) Intractable pain Status: Acute (2) Paralysis of bladder Status: Chronic (3) Anxiety Status: Chronic (4) Nutrition, metabolism, and development symptoms Status: Acute (5) Spinal cord stroke Status: Chronic (6) Tobacco abuse Status: Chronic (Melody Ambrose MD R3) Melody Ambrose MD R3 Feb 11, 2017 10:36 Sandra Rangel MD Feb 11, 2017 11:10
[2017-02-11] MEDS ORDERED: POTASSIUM CHLORIDE 20 MEQ CONTROLLED RELEASE TAB PO ONE (11:00)
[2017-02-11 11:49] VITALS: BP 131/56; PULSE 76; RESP 16; TEMP 99; O2SAT 96
[2017-02-11 15:43] VITALS: BP 132/61; PULSE 84; RESP 16; TEMP 97.7; O2SAT 97
[2017-02-11] MEDS: traMADol HCL 50 MG TAB PO PRN (18:31)
[2017-02-11] MEDS: AMITRIPTYLINE HCL 50 MG TAB PO SCH (21:33)
[2017-02-11] MEDS: MONTELUKAST SODIUM 10 MG TAB PO SCH (21:33)
[2017-02-11] MEDS: HYDROCORTISONE 2.5% CR (ANUSOL HC) 30 GM TUBE RECTAL PRN (21:36)
[2017-02-11 23:50] VITALS: BP 108/56; PULSE 82; RESP 18; TEMP 95.8; O2SAT 96
[2017-02-12] MEDS: BELLADONNA ALKALOIDS/OPIUM 60 MG SUPP RECTAL SCH ×4 (01:55→20:13)
[2017-02-12] MEDS: traMADol HCL 50 MG TAB PO PRN ×4 (01:55→20:13)
[2017-02-12 03:35] VITALS: BP 101/50; PULSE 79; RESP 18; TEMP 97; O2SAT 95
[2017-02-12] MEDS: PHENAZOPYRIDINE HCL 200 MG TAB PO SCH ×3 (05:44→21:42)
[2017-02-12] MEDS: oxyCODONE/ACETAMINOPHEN 5 MG/325 MG TAB PO PRN ×4 (05:45→23:40)
[2017-02-12] MEDS: KETOROLAC TROMETHAMINE 30 MG/ML (IVP) VIAL IV PUSH PRN ×4 (05:45→23:40)
[2017-02-12] MEDS: ONDANSETRON HCL 4 MG/2 ML VIAL IV PUSH PRN ×3 (05:45→23:42)
[2017-02-12 07:48] LABS: AUTOMATED NEUTROPHIL # 4.5 TH/MM3 (1.8-7.7); BASOPHIL % 0.6 % (0.0-2.0); EOSINOPHIL # 0.3 TH/MM3 (0-0.4); EOSINOPHIL % 4.1 % (0.0-4.0); HEMO FLAGS DIFF FINAL; LYMPH % 35.6 % (9.0-44.0); MEAN CELL VOLUME 90.7 FL (80.0-100.0); MEAN CORPUSCULAR HEMOGLOBIN 30.7 PG (27.0-34.0); MEAN CORPUSCULAR HGB CONC 33.8 % (32.0-36.0); NEUT % 53.7 % (16.0-70.0); PLATELET COUNT 231 TH/MM3 (150-450); RED BLOOD COUNT 4.52 MIL/MM3 (4.00-5.30); RED CELL DISTRIBUTION WIDTH 15.4 % (11.6-17.2); WHITE BLOOD COUNT 8.3 TH/MM3 (4.0-11.0)
[2017-02-12 07:50] VITALS: BP 112/55; PULSE 88; RESP 16; TEMP 97.9; O2SAT 96
[2017-02-12 07:53] VITALS: BP 127/56; PULSE 84; RESP 20; TEMP 99.3; O2SAT 96
[2017-02-12 08:00] VITALS: PULSE 88; TEMP 97.9
[2017-02-12] MEDS: GABAPENTIN 300 MG CAP PO SCH ×3 (08:01→18:01)
[2017-02-12] MEDS: DOCUSATE SODIUM 50 MG/SENNA 8.6 MG TAB PO SCH (08:01)
[2017-02-12] MEDS: FAMOTIDINE 20 MG TAB PO SCH ×2 (08:01→21:42)
[2017-02-12] MEDS: PARoxetine HCL 20 MG TAB PO SCH (08:02)
[2017-02-12] MEDS: BACLOFEN 20 MG TAB PO SCH ×2 (08:02→21:42)
[2017-02-12] MEDS: SODIUM CHLORIDE 0.9% FLUSH 10 ML FLUSH IV FLUSH SCH ×2 (08:02→21:00)
[2017-02-12] MEDS: clonazePAM 1 MG TAB PO SCH ×3 (08:02→18:02)
[2017-02-12] MEDS: PREGABALIN 100 MG CAP PO SCH ×3 (08:02→18:02)
[2017-02-12] MEDS: SILVER SULFADIAZINE 1% CR 400 GM JAR TOPICAL SCH (08:07)
[2017-02-12 08:18] LABS: BICARBONATE 28.3 MEQ/L (21.0-32.0); POTASSIUM 4.2 MEQ/L (3.5-5.1)
[2017-02-12 12:00] VITALS: BP 131/60; PULSE 85; RESP 18; TEMP 98.6; O2SAT 95
[2017-02-12 12:19] LABS: BACTERIA, URINE MOD /hpf; BLOOD, URINE SMALL (NEG); COMMENT (UR) CATH; GLUCOSE,URINE NEG (NEG); KETONE, URINE NEG (NEG); MUCUS URINE FEW /lpf (OCC); PH, URINE 6.5 (5.0-8.5); SQUAMOUS EPITHELIAL CELL URINE <1 /hpf (0-5); TRANSITIONAL EPI CELLS, URINE <1 /hpf
[2017-02-12 12:20] LABS: NITRITE,URINE POS (NEG)
[2017-02-12 12:23] LABS: URINE COLOR ORANGE (YELLW/STRAW)
--- NOTE | 2017-02-12 16:24 | HHI.FPPN ---
Subjective Remarks Patient still with suprapubic pain, vaginal pain, and urethral burning. He denies any fevers or chills. She denies any shortness of breath. She is crying throughout the exam. Requesting something stronger for pain. Objective Vitals Vital Signs Date Time Temp Pulse Resp B/P Pulse Ox O2 Delivery O2 Flow Rate FiO2 02/12/17 14:53 18 02/12/17 13:32 18 02/12/17 12:29 18 02/12/17 12:29 18 02/12/17 12:00 98.6 85 18 131/60 95 02/12/17 08:00 97.9 88 02/12/17 07:50 97.9 88 16 112/55 96 02/12/17 03:35 97.0 79 18 101/50 95 02/11/17 23:50 95.8 82 18 108/56 96 I/O 02/11/17 02/11/17 02/11/17 02/12/17 02/12/17 02/12/17 07:00 15:00 23:00 07:00 15:00 23:00 Intake Total 360 ml Output Total 950 ml 900 ml Balance -590 ml -900 ml Intake Oral 360 ml Output Urine Total 950 ml 900 ml # Voids 3 Result Diagram: 02/12/1772002/12/17720 Objective Remarks GEN: NAD, appears HEENT: PERRL, EOM intact CV: RRR MSK: Ulcers on right lower extremities with central eschar, not draining, no surrounding erythema. Ext: 0/5 strength in lower extremities. A/P Assessment and Plan 21 y/o female with PMHx of spinal stroke, paraplegia, neurogenic bladder requiring catheterization, who presents today due to suprapubic and right flank pain present for several weeks which has not been responding to home medications. 1. Right flank and suprapubic pain/UTI - UA on admission showed no evidence of acute infection, CT scan showed "mild diffuse bladder wall thickening" likely secondary to recurrent UTIs. Patient with repeat urinalysis showing many bacteria, high leukocytes, large leukocyte esterase and positive nitrites. Culture positive for greater than 100,000 gram- negative colony forming units. Infectious disease on board as patient has a history of multiple UTIs with high bacterial resistance. Infectious disease recommends repeat cultures with Govea catheter placed by RN. Suspect gross contamination. - Will use Toradol 30 mg q6h, Tylenol 650mg q4h as needed for pain. Continue with Percocet PRN breakthrough pain. - Will continue her home bowel regimen of docusate 1 tablet daily - Urology was consulted given CT findings, and history of persistent UTIs. Recommend out patient cystoscopy. She has a scheduled apt on March [address] Guzman. We appreciate greatly their help in management of Mrs. Gibson. 2. Wounds on posterior right thigh Diff dx includes cigarette reagan, pressure ulcers, contact dermatitis. - Consult wound care, we appreciate their recommendations. 3. Chronic medical problems: - Asthma: continue home montelukast and albuterol - Anxiety and depression: continue home clonazepam, amitriptyline, paroxetine - GERD: continue home ranitidine 4. FEN - full diet - replete electrolytes as needed - no IV fluids at this time Discharge Planning To home once cultures result, likely tomorrow Problem List: (1) Intractable pain Status: Acute (2) Paralysis of bladder Status: Chronic (3) Anxiety Status: Chronic (4) Nutrition, metabolism, and development symptoms Status: Acute (5) Spinal cord stroke Status: Chronic (6) Tobacco abuse Status: Chronic Adair Bar MD R2 Feb 12, 2017 16:23
[2017-02-12] MEDS: MONTELUKAST SODIUM 10 MG TAB PO SCH (21:42)
[2017-02-12] MEDS: AMITRIPTYLINE HCL 50 MG TAB PO SCH (21:42)
[2017-02-13] VITALS (7 sets, daily range): BP systolic 90–132; BP diastolic 55–76; PULSE 65–86; RESP 16–20; TEMP 96.9–98.8; O2SAT 94–99
[2017-02-13] MEDS: BELLADONNA ALKALOIDS/OPIUM 60 MG SUPP RECTAL SCH ×4 (04:19→20:18)
[2017-02-13] MEDS: traMADol HCL 50 MG TAB PO PRN ×4 (04:20→23:33)
[2017-02-13] MEDS: PHENAZOPYRIDINE HCL 200 MG TAB PO SCH ×3 (05:37→22:10)
[2017-02-13] MEDS: DOCUSATE SODIUM 50 MG/SENNA 8.6 MG TAB PO SCH (07:43)
[2017-02-13] MEDS: PREGABALIN 100 MG CAP PO SCH ×3 (07:43→17:09)
[2017-02-13] MEDS: BACLOFEN 20 MG TAB PO SCH ×2 (07:43→20:14)
[2017-02-13] MEDS: clonazePAM 1 MG TAB PO SCH ×3 (07:43→17:09)
[2017-02-13] MEDS: FAMOTIDINE 20 MG TAB PO SCH ×2 (07:44→20:13)
[2017-02-13] MEDS: oxyCODONE/ACETAMINOPHEN 5 MG/325 MG TAB PO PRN (07:44)
[2017-02-13] MEDS: SILVER SULFADIAZINE 1% CR 400 GM JAR TOPICAL SCH (07:44)
[2017-02-13] MEDS: GABAPENTIN 300 MG CAP PO SCH ×3 (07:44→17:09)
[2017-02-13] MEDS: PARoxetine HCL 20 MG TAB PO SCH (07:44)
[2017-02-13] MEDS: SODIUM CHLORIDE 0.9% FLUSH 10 ML FLUSH IV FLUSH SCH ×2 (09:00→20:20)
[2017-02-13] MEDS: KETOROLAC TROMETHAMINE 30 MG/ML (IVP) VIAL IV PUSH PRN ×3 (10:33→23:32)
--- NOTE | 2017-02-13 11:11 | HHI.FPPN ---
Subjective Remarks No acute events overnight. Afebrile, vital signs stable. Patient continues to complain of lower abdominal and bladder pain. Also complains of pressure from her Govea. States her pain medication is not helping in any way. She states that her vagina is also painful and swollen. (Melody Ambrose MD R3) Objective Vitals Vital Signs Date Time Temp Pulse Resp B/P Pulse Ox O2 Delivery O2 Flow Rate FiO2 02/13/17 08:43 16 02/13/17 08:43 16 02/13/17 08:00 98.1 84 16 118/64 96 02/13/17 04:15 98.6 86 20 121/70 99 02/13/17 00:13 98.6 70 20 111/60 95 02/12/17 14:53 18 02/12/17 12:29 18 02/12/17 12:00 98.6 85 18 131/60 95 I/O 02/12/17 02/12/17 02/12/17 02/13/17 02/13/17 02/13/17 07:00 15:00 23:00 07:00 15:00 23:00 Intake Total 360 ml 480 ml 360 ml Output Total 950 ml 900 ml 1850 ml 900 ml Balance -590 ml -900 ml -1370 ml -540 ml Intake Oral 360 ml 480 ml 360 ml Output Urine Total 950 ml 900 ml 1850 ml 900 ml # Voids 3 # Bowel Movements 1 (Melody Ambrose MD R3) Result Diagram: 02/12/17 0721 02/12/17 0721 Objective Remarks GEN: NAD, appears HEENT: PERRL, EOM intact CV: RRR Abdomen: Soft, nontender to palpation, nondistended : White vaginal discharge consistent with yeast. No cervical motion tenderness. No significant vaginal erythema or edema. No adnexal tenderness. MSK: Ulcers on right lower extremities with central eschar, not draining, no surrounding erythema. Ext: 0/5 strength in lower extremities. (Melody Ambrose MD R3) A/P Assessment and Plan 21 y/o female with PMHx of spinal stroke, paraplegia, neurogenic bladder requiring catheterization, who presents today due to suprapubic and right flank pain present for several weeks which has not been responding to home medications. 1. Right flank and suprapubic pain/UTI - UA on admission showed no evidence of acute infection, CT scan showed "mild diffuse bladder wall thickening" likely secondary to recurrent UTIs. Patient with repeat urinalysis showing many bacteria, high leukocytes, large leukocyte esterase and positive nitrites. Culture positive for greater than 100,000 gram- negative colony forming units. Infectious disease on board as patient has a history of multiple UTIs with high bacterial resistance. Infectious disease recommends repeat cultures with Govea catheter placed by RN. Suspect gross contamination. Repeat UA positive for urinary tract infection, culture pending. Awaiting results of culture prior to treatment per infectious disease recommendations. - Will use Toradol 30 mg q6h, Tylenol 650mg q4h as needed for pain. Continue with Percocet PRN breakthrough pain. Percocet dosing increased today given patient's persistent uncontrolled pain. - Will continue her home bowel regimen of docusate 1 tablet daily - Urology was consulted given CT findings, and history of persistent UTIs. Recommend out patient cystoscopy. She has a scheduled apt on March [address] Guzman. We appreciate greatly their help in management of Mrs. Gibson. 2. Vaginal pain and edema. Patient states her pain extends to her vagina and that her vagina is very edematous Speculum exam performed today, culture and Gram stain pending. Discharge consistent with yeast, patient given Diflucan. GC/chlamydia pending. 3. Wounds on posterior right thigh Diff dx includes cigarette raegan, pressure ulcers, contact dermatitis. - Consult wound care, we appreciate their recommendations. 4. Chronic medical problems: - Asthma: continue home montelukast and albuterol - Anxiety and depression: continue home clonazepam, amitriptyline, paroxetine - GERD: continue home ranitidine 5. FEN - full diet - replete electrolytes as needed - no IV fluids at this time Discharge Planning To home once cultures result, likely tomorrow (Melody Ambrose MD R3) Attending Attestation Patient seen and examined. Case reviewed and discussed Agree with plan of care as discussed with me and documented in the resident note. (Sandra Rangel MD) Problem List: (1) Intractable pain Status: Acute (2) Paralysis of bladder Status: Chronic (3) Anxiety Status: Chronic (4) Nutrition, metabolism, and development symptoms Status: Acute (5) Spinal cord stroke Status: Chronic (6) Tobacco abuse Status: Chronic (Melody Ambrose MD R3) Melody Ambrose MD R3 Feb 13, 2017 11:11 Sandra Rangel MD Feb 14, 2017 07:56
[2017-02-13] MEDS ORDERED: FLUCONAZOLE 100 MG TAB PO ONE (11:15)
[2017-02-13] MEDS: oxyCODONE/ACETAMINOPHEN 10 MG/325 MG TAB PO PRN ×3 (11:28→23:32)
[2017-02-13] MEDS ORDERED: ZOLPIDEM TARTRATE 10 MG TAB PO PRN (11:45)
[2017-02-13 12:04] LABS: AUTOMATED NEUTROPHIL # 4.4 TH/MM3 (1.8-7.7); BASOPHIL # 0.1 TH/MM3 (0-0.2); BASOPHIL % 0.9 % (0.0-2.0); EOSINOPHIL # 0.3 TH/MM3 (0-0.4); EOSINOPHIL % 4.4 % (0.0-4.0); HEMATOCRIT 42.2 % (35.0-46.0); HEMO FLAGS DIFF FINAL; LYMPH % 32.8 % (9.0-44.0); LYMPHOCYTE # 2.6 TH/MM3 (1.0-4.8); MEAN CELL VOLUME 91.2 FL (80.0-100.0); MEAN CORPUSCULAR HEMOGLOBIN 30.8 PG (27.0-34.0); MEAN CORPUSCULAR HGB CONC 33.8 % (32.0-36.0); MONO % 6.1 % (0.0-8.0); NEUT % 55.8 % (16.0-70.0); PLATELET COUNT 218 TH/MM3 (150-450); RED BLOOD COUNT 4.62 MIL/MM3 (4.00-5.30); RED CELL DISTRIBUTION WIDTH 15.7 % (11.6-17.2); WHITE BLOOD COUNT 7.9 TH/MM3 (4.0-11.0)
[2017-02-13 12:48] LABS: BICARBONATE 32.4 MEQ/L (21.0-32.0); POTASSIUM 4.3 MEQ/L (3.5-5.1)
[2017-02-13 13:24] LABS: CHLAMYDIA PCR NOT DETECTED (NOT DETECT); NEISSERIA PCR NOT DETECTED (NOT DETECT)
[2017-02-13] MEDS ORDERED: NITROFURANTOIN MONOHYD MACROCR 100 MG CAP PO ONE (15:15)
[2017-02-13] MEDS ORDERED: NITROFURANTOIN MONOHYD MACROCR 100 MG CAP PO SCH (18:00)
[2017-02-13] MEDS: AMITRIPTYLINE HCL 50 MG TAB PO SCH (20:14)
[2017-02-13] MEDS: MONTELUKAST SODIUM 10 MG TAB PO SCH (20:22)
[2017-02-13] MEDS: NITROFURANTOIN MONOHYD MACROCR 100 MG CAP PO SCH (22:09)
[2017-02-13] MEDS: ONDANSETRON HCL 4 MG/2 ML VIAL IV PUSH PRN (22:45)
[2017-02-14] VITALS: BP 122/61; PULSE 104; RESP 19; TEMP 98.4; O2SAT 94
[2017-02-14] MEDS: BELLADONNA ALKALOIDS/OPIUM 60 MG SUPP RECTAL SCH ×4 (02:00→18:51)
[2017-02-14 04:00] VITALS: BP 121/57; PULSE 95; RESP 17; TEMP 98.1; O2SAT 98
[2017-02-14] MEDS: KETOROLAC TROMETHAMINE 30 MG/ML (IVP) VIAL IV PUSH PRN ×2 (05:34→11:35)
[2017-02-14] MEDS: PHENAZOPYRIDINE HCL 200 MG TAB PO SCH ×2 (05:34→13:25)
[2017-02-14] MEDS: traMADol HCL 50 MG TAB PO PRN ×3 (05:34→17:46)
[2017-02-14] MEDS: oxyCODONE/ACETAMINOPHEN 10 MG/325 MG TAB PO PRN ×3 (05:35→17:47)
[2017-02-14 07:48] LABS: AUTOMATED NEUTROPHIL # 4.3 TH/MM3 (1.8-7.7); BASOPHIL # 0.1 TH/MM3 (0-0.2); BASOPHIL % 0.8 % (0.0-2.0); EOSINOPHIL # 0.3 TH/MM3 (0-0.4); EOSINOPHIL % 4.2 % (0.0-4.0); HEMATOCRIT 43.1 % (35.0-46.0); HEMO FLAGS DIFF FINAL; LYMPH % 30.8 % (9.0-44.0); LYMPHOCYTE # 2.3 TH/MM3 (1.0-4.8); MEAN CELL VOLUME 91.6 FL (80.0-100.0); MEAN CORPUSCULAR HEMOGLOBIN 30.3 PG (27.0-34.0); MONO % 7.5 % (0.0-8.0); NEUT % 56.7 % (16.0-70.0); PLATELET COUNT 194 TH/MM3 (150-450); RED BLOOD COUNT 4.71 MIL/MM3 (4.00-5.30); RED CELL DISTRIBUTION WIDTH 14.9 % (11.6-17.2); WHITE BLOOD COUNT 7.6 TH/MM3 (4.0-11.0)
[2017-02-14] MEDS: GABAPENTIN 300 MG CAP PO SCH ×3 (07:59→17:46)
[2017-02-14] MEDS: PARoxetine HCL 20 MG TAB PO SCH (07:59)
[2017-02-14] MEDS: FAMOTIDINE 20 MG TAB PO SCH (07:59)
[2017-02-14] MEDS: NITROFURANTOIN MONOHYD MACROCR 100 MG CAP PO SCH ×2 (07:59→17:47)
[2017-02-14] MEDS: BACLOFEN 20 MG TAB PO SCH (08:00)
[2017-02-14] MEDS: PREGABALIN 100 MG CAP PO SCH ×3 (08:00→17:46)
[2017-02-14] MEDS: clonazePAM 1 MG TAB PO SCH ×3 (08:00→17:47)
[2017-02-14] MEDS: DOCUSATE SODIUM 50 MG/SENNA 8.6 MG TAB PO SCH (08:00)
[2017-02-14] MEDS: ONDANSETRON HCL 4 MG/2 ML VIAL IV PUSH PRN ×2 (08:01→13:29)
[2017-02-14] MEDS: SODIUM CHLORIDE 0.9% FLUSH 10 ML FLUSH IV FLUSH SCH (08:01)
[2017-02-14] MEDS: SILVER SULFADIAZINE 1% CR 400 GM JAR TOPICAL SCH (08:02)
[2017-02-14 08:42] VITALS: BP 120/76; PULSE 94; RESP 20; TEMP 97; O2SAT 96
[2017-02-14] MEDS ORDERED: BO60R RECTAL (09:33)
[2017-02-14] MEDS ORDERED: NITR100C4 PO (10:59)
--- NOTE | 2017-02-14 11:39 | HHI.FPPN ---
Subjective Remarks No acute events overnight. Afebrile, vital signs stable. Patient continues to complain of bladder, lower abdominal and lower back pain. States the pain is improved from yesterday. (Melody Ambrose MD R3) Objective Vitals Vital Signs Date Time Temp Pulse Resp B/P Pulse Ox O2 Delivery O2 Flow Rate FiO2 02/14/17 08:42 97.0 94 20 120/76 96 02/14/17 06:35 17 02/14/17 06:35 17 02/14/17 06:35 17 02/14/17 04:00 98.1 95 17 121/57 98 02/14/17 00:00 98.4 104 19 122/61 94 02/13/17 20:00 97.8 86 17 132/76 94 02/13/17 18:17 18 02/13/17 15:50 97.4 65 18 90/55 95 02/13/17 13:50 96.9 84 20 116/65 96 I/O 02/13/17 02/13/17 02/13/17 02/14/17 02/14/17 02/14/17 07:00 15:00 23:00 07:00 15:00 23:00 Intake Total 360 ml 240 ml 480 ml Output Total 900 ml 1300 ml 800 ml Balance -540 ml -1060 ml -320 ml Intake Oral 360 ml 240 ml 480 ml Output Urine Total 900 ml 1300 ml 800 ml # Bowel Movements 0 (Melody Ambrose MD R3) Result Diagram: 02/14/17 0658 02/13/17 1126 Objective Remarks GEN: NAD, appears HEENT: PERRL, EOM intact CV: RRR Abdomen: Soft, nontender to palpation, nondistended MSK: Ulcers on right lower extremities with central eschar, not draining, no surrounding erythema. Ext: 0/5 strength in lower extremities. (Melody Ambrose MD R3) A/P Assessment and Plan 21 y/o female with PMHx of spinal stroke, paraplegia, neurogenic bladder requiring catheterization, who presents today due to suprapubic and right flank pain present for several weeks which has not been responding to home medications. 1. Right flank and suprapubic pain/UTI - UA on admission showed no evidence of acute infection, CT scan showed "mild diffuse bladder wall thickening" likely secondary to recurrent UTIs. Patient with repeat urinalysis showing many bacteria, high leukocytes, large leukocyte esterase and positive nitrites. Culture positive for greater than 100,000 gram- negative colony forming units. Infectious disease on board as patient has a history of multiple UTIs with high bacterial resistance. Repeat UA positive for urinary tract infection, culture showed Escherichia coli sensitive to Macrobid. Per infectious disease recommendations, patient will be discharged on 10 days of Macrobid. Follow-up with PCP. - Will use Toradol 30 mg q6h, Tylenol 650mg q4h as needed for pain. Continue with Percocet PRN breakthrough pain. Percocet dosing increased today given patient's persistent uncontrolled pain. Now that urinary tract infection is being treated, patient will be discharged home on her home medications only. Belladonna suppository for pain in the first few days of treatment. - Will continue her home bowel regimen of docusate 1 tablet daily - Urology was consulted given CT findings, and history of persistent UTIs. Recommend out patient cystoscopy. She has a scheduled apt on March [address] Guzman. We appreciate greatly their help in management of Mrs. Gibson. 2. Vaginal pain and edema. Patient states her pain extends to her vagina and that her vagina is very edematous Speculum exam performed yesterday, culture and Gram stain pending. Discharge consistent with yeast, patient given Diflucan. GC/chlamydia negative. 3. Wounds on posterior right thigh Diff dx includes cigarette reagan, pressure ulcers, contact dermatitis. - Consult wound care, we appreciate their recommendations. 4. Chronic medical problems: - Asthma: continue home montelukast and albuterol - Anxiety and depression: continue home clonazepam, amitriptyline, paroxetine - GERD: continue home ranitidine 5. FEN - full diet - replete electrolytes as needed - no IV fluids at this time Discharge Planning To home today (Melody Ambrose MD R3) Attending Attestation Patient seen and examined Case reviewed and discussed Agree with plan of care as discussed with me and documented in the resident note. (Sandra Rangel MD) Problem List: (1) Intractable pain Status: Acute (2) Paralysis of bladder Status: Chronic (3) Anxiety Status: Chronic (4) Nutrition, metabolism, and development symptoms Status: Acute (5) Spinal cord stroke Status: Chronic (6) Tobacco abuse Status: Chronic (Melody Ambrose MD R3) Melody Ambrose MD R3 Feb 14, 2017 11:39 Sandra Rangel MD Feb 17, 2017 11:52
--- NOTE | 2017-02-14 11:43 | HHI.DS ---
Melody Ambrose MD R3 02/14/17 1143: Discharge Summary Admission Date Feb 08, 2017 at 15:02 Discharge Date: Feb 14, 2017 Admitting Diagnosis Intractable Pain, Dysuria (1) Intractable pain Diagnosis: Principal (2) Paralysis of bladder Diagnosis: Secondary (3) Anxiety Diagnosis: Secondary (4) Spinal cord stroke Diagnosis: Secondary (5) UTI (urinary tract infection) Diagnosis: [facility] Infectious disease Urology Brief History Ms. Gibson is a 21 y/o female presenting to [place] ED with worsening Right sided flank pain. HPI: She reports chronic UTI infections for the past several months. More recently, she was on Macrobid up until January 28-. The next day, she reports cloudy urine and was than restarted on Macrobid (finished course on 02/08 at 0300 ). She reports vaginal, urethra, and bladder pain constantly. The right sided flank pain has gradually gotten worse over the past 1 week. She has become fearful to urinate because of the discomfort. She denies any blood in her urine , but it has become more dark, despite taking in PO fluid. Her lower back pain is worse when she is laying flat and is similar to her chronic pain. Patient says her home pain regimen is not working to control her pain. She has tried getting established with Urology but has been unsuccessful. Additionally she has 2 wounds located on her posterior thigh which she has noticed for several weeks and are not healing. She believes they could be cigarette reagan although she has no reagan on any clothing or bedsheets. CBC/BMP: 02/14/17 0658 02/13/17 1126 Significant Findings Laboratory Tests Test 02/12/17 02/12/17 02/13/17 02/14/17 07:21 11:13 11:26 06:58 Eosinophils (%) (Auto) 4.1 % (0.0-4.0) 4.4 % (0.0-4.0) 4.2 % (0.0-4.0) Calcium Level 8.4 MG/DL (8.5-10.1) Urine Color ORANGE (YELLW/STRAW) Urine Turbidity HAZY (CLEAR) Urine Occult Blood SMALL (NEG) Urine Nitrite POS (NEG) Urine Leukocyte Esterase LARGE (NEG) Urine WBC 99 /hpf (0-5) Urine WBC Clumps RARE (NONE) Urine Bacteria MOD /hpf (NONE) Urine Mucus FEW /lpf (OCC) Carbon Dioxide Level 32.4 MEQ/L (21.0-32.0) Anion Gap 3 MEQ/L (5-15) Random Glucose 65 MG/DL (74-106) Imaging Last Impressions Abdomen/Pelvis CT 02/08/17 1218 Signed Impressions: Service Date/Time: Wednesday, February 08, 2017 14:04 - CONCLUSION: 1. No acute intra-abdominal process. 2. Mild diffuse nonspecific urinary bladder wall thickening. 3. Probable small decubitus ulcer along the medial aspect of the left buttock. 4. Degenerative changes and scoliosis of the thoraco-lumbar spine. Deep Catherine MD PE at Discharge GEN: NAD, appears HEENT: PERRL, EOM intact CV: RRR Abdomen: Soft, nontender to palpation, nondistended MSK: Ulcers on right lower extremities with central eschar, not draining, no surrounding erythema. Ext: 0/5 strength in lower extremities. Hospital Course Patient admitted for intractable pain, UA within normal limits. Repeat urinalysis and culture with fully positive for Escherichia coli that was sensitive to Macrobid. Infectious disease recommends completion of a 10 day course of treatment with Macrobid and follow-up with PCP. Patient also complained of vaginal edema and pain, speculum exam performed negative for GC/ chlamydia. Yeast identified on physical exam, patient given 1 dose of Diflucan. Patient also needs to be seen by urology for what appeared to be chronic cystitis on CT scan. She has an appointment arranged for March 21. Pt Condition on Discharge: Stable Discharge Disposition: Discharge Home Discharge Instructions DIET: Follow Instructions for: As Tolerated, No Restrictions Activities you can perform: Regular-No Restrictions Follow up Referrals: PCP Follow-up - 1 Week Urology - 1 Week with Guevara Guzman DO New Medications: Belladonna-Opium Supp (Belladonna-Opium Supp) 16.2-60 Mg Supp 60 MG RECTAL Q6H #30 Nitrofurantoin Monohydrate Macrocrystals (Nitrofurantoin Monohydrate Macrocrystals) 100 Mg Cap 100 MG PO BIDPC Days 10 Ref 0 CAP Continued Medications: Albuterol 8.5 GM Inh (Proair Hfa 8.5 GM Inh) 90 Mcg/Act Aer 2 PUFF INH Q4-6H 108 mcg/actuation PRN SHORTNESS OF BREATH #1 Ref 6 INHALER Amitriptyline HCl (Elavil) 25 Mg Tab 50 MG PO HS #90 Ref 12 TAB Baclofen (Baclofen) 20 Mg Tab 40 MG PO BID Muscle Spasm #60 Ref 6 TAB Clonazepam (Clonazepam) 1 Mg Tab 1 MG PO TID #90 Ref 0 TAB Epinephrine Inj (Epipen 2-Chau Inj) 0.3 Mg/0.3 Ml Pfpen 0.3 MG IM ONCE PRN ALLERGIC REACTION #1 Ref 0 PACK Fluconazole (Diflucan) 200 Mg Tab 200 MG PO DAILY Infection #7 Ref 0 TAB Gabapentin (Gabapentin) 600 Mg Tab 1200 MG PO TID #270 Ref 12 TAB Hydrocortisone Rectal 2.5% (Proctosol Hc 2.5%) 2.5% Cream 1 APPLIC RECTAL BID PRN PAIN/INFLAMMATION #2 Ref 12 TUBE Ibuprofen (Ibuprofen) 800 Mg Tab 800 MG PO Q6HR PRN PAIN #30 Ref 0 TAB Levonorgestrel-Ethinyl Estradiol (Seasonique) 0.15-0.03-0.01 Mg Tab 1 TAB PO HS Control #91 Ref 0 TAB Levonorgestrel-Ethinyl Estradiol (Seasonique) 0.15-0.03-0.01 Mg Tab 1 TAB PO DAILY Control #91 Ref 6 TAB Montelukast (Singulair) 10 Mg Tab 10 MG PO HS #30 Ref 0 TAB Ondansetron Odt (Zofran Odt) 8 Mg Tab 8 MG SL Q8H PRN NAUSEA OR VOMITING #30 Ref 6 TAB Paroxetine (Paxil) 20 Mg Tab 20 MG PO DAILY #30 Ref 12 TAB Pregabalin (Lyrica) 200 Mg Cap 200 MG PO TID #90 Ref 3 CAP Ranitidine (Ranitidine) 150 Mg Tab 150 MG PO HS #90 Ref 12 TAB Sennosides-Docusate Sodium (Kathy-Colace) 8.6-50 Mg Tab 1 TAB PO DAILY Constipation #60 Ref 0 TAB Tramadol (Ultram) 50 Mg Tab 100 MG PO Q6HR PRN PAIN #240 Ref 3 TAB Sandra Rangel MD 02/17/17 1152: Discharge Summary CBC/BMP: 02/14/17 0658 02/13/17 1126 Discharge Instructions Follow up Referrals: PCP Follow-up - 1 Week Urology - 1 Week with Guevara Guzman DO New Medications: Belladonna-Opium Supp (Belladonna-Opium Supp) 16.2-60 Mg Supp 60 MG RECTAL Q6H #30 Nitrofurantoin Monohydrate Macrocrystals (Nitrofurantoin Monohydrate Macrocrystals) 100 Mg Cap 100 MG PO BIDPC Days 10 Ref 0 CAP Continued Medications: Albuterol 8.5 GM Inh (Proair Hfa 8.5 GM Inh) 90 Mcg/Act Aer 2 PUFF INH Q4-6H 108 mcg/actuation PRN SHORTNESS OF BREATH #1 Ref 6 INHALER Amitriptyline HCl (Elavil) 25 Mg Tab 50 MG PO HS #90 Ref 12 TAB Baclofen (Baclofen) 20 Mg Tab 40 MG PO BID Muscle Spasm #60 Ref 6 TAB Clonazepam (Clonazepam) 1 Mg Tab 1 MG PO TID #90 Ref 0 TAB Epinephrine Inj (Epipen 2-Chau Inj) 0.3 Mg/0.3 Ml Pfpen 0.3 MG IM ONCE PRN ALLERGIC REACTION #1 Ref 0 PACK Fluconazole (Diflucan) 200 Mg Tab 200 MG PO DAILY Infection #7 Ref 0 TAB Gabapentin (Gabapentin) 600 Mg Tab 1200 MG PO TID #270 Ref 12 TAB Hydrocortisone Rectal 2.5% (Proctosol Hc 2.5%) 2.5% Cream 1 APPLIC RECTAL BID PRN PAIN/INFLAMMATION #2 Ref 12 TUBE Ibuprofen (Ibuprofen) 800 Mg Tab 800 MG PO Q6HR PRN PAIN #30 Ref 0 TAB Levonorgestrel-Ethinyl Estradiol (Seasonique) 0.15-0.03-0.01 Mg Tab 1 TAB PO HS Control #91 Ref 0 TAB Levonorgestrel-Ethinyl Estradiol (Seasonique) 0.15-0.03-0.01 Mg Tab 1 TAB PO DAILY Control #91 Ref 6 TAB Montelukast (Singulair) 10 Mg Tab 10 MG PO HS #30 Ref 0 TAB Ondansetron Odt (Zofran Odt) 8 Mg Tab 8 MG SL Q8H PRN NAUSEA OR VOMITING #30 Ref 6 TAB Paroxetine (Paxil) 20 Mg Tab 20 MG PO DAILY #30 Ref 12 TAB Pregabalin (Lyrica) 200 Mg Cap 200 MG PO TID #90 Ref 3 CAP Ranitidine (Ranitidine) 150 Mg Tab 150 MG PO HS #90 Ref 12 TAB Sennosides-Docusate Sodium (Kathy-Colace) 8.6-50 Mg Tab 1 TAB PO DAILY Constipation #60 Ref 0 TAB Tramadol (Ultram) 50 Mg Tab 100 MG PO Q6HR PRN PAIN #240 Ref 3 TAB Melody Ambrose MD R3 Feb 14, 2017 11:43 Sandra Rangel MD Feb 17, 2017 11:52
[2017-02-14 12:26] VITALS: BP 112/59; PULSE 96; RESP 20; TEMP 97.5; O2SAT 92
[2017-02-14 16:00] VITALS: BP 126/65; PULSE 101; RESP 20; TEMP 97; O2SAT 95
[2017-02-15] MEDS ORDERED: ULTR50TA5 PO (08:25)
[2017-03-01] MEDS ORDERED: NITR100C4 PO (07:56)
[2017-03-03] MEDS ORDERED: PARO40TA2 PO (11:57)
[2017-03-03] MEDS ORDERED: NITR100C4 PO (11:59)
== END 2017-02-14 19:22 | disposition home or self-care (01) ==
LOC: NEPE 11:35 → NEDA 15:02 → NEPHCDU 16:50 → HOCB 02-13 13:27 → HOCA 02-13 13:40
PROVIDERS: ADMIT Family Medicine; ATTEND Family Medicine
DX: R10.9 Unspecified abdominal pain (principal); N31.2 Flaccid neuropathic bladder, not elsewhere classified; S71.101A Unspecified open wound, right thigh, initial encounter; R11.2 Nausea with vomiting, unspecified; R10.30 Lower abdominal pain, unspecified; R00.0 Tachycardia, unspecified; N39.0 Urinary tract infection, site not specified; B96.20 Unspecified Escherichia coli [E. coli] as the cause of diseases classified elsewhere; K59.00 Constipation, unspecified; R10.2 Pelvic and perineal pain; N89.8 Other specified noninflammatory disorders of vagina; R60.0 Localized edema; M41.9 Scoliosis, unspecified; M47.895 Other spondylosis, thoracolumbar region; J45.909 Unspecified asthma, uncomplicated; K21.9 Gastro-esophageal reflux disease without esophagitis; G82.20 Paraplegia, unspecified; M54.5 Low back pain; G89.29 Other chronic pain; M21.379 Foot drop, unspecified foot; F41.9 Anxiety disorder, unspecified; F31.9 Bipolar disorder, unspecified; F17.210 Nicotine dependence, cigarettes, uncomplicated; Z86.73 Personal history of transient ischemic attack (TIA), and cerebral infarction without residual deficits; Z87.440 Personal history of urinary (tract) infections; X58.XXXA Exposure to other specified factors, initial encounter
CPT/HCPCS: 74177; 76937; 80048; 80053; 81001; 83605; 83690; 84703; 85025; 87040; 87070; 87077; 87086; 87186; 87205; 87491; 87591; 96361; 96374; 96375; 96376; 99285; G0378; J1885; J2270; J2405; J7030; Q9967

== ENCOUNTER 2018-02-10 18:17 | Inpatient (IN) | payer MEDICAID ==
[~2018-02-10] VITALS: Ht 154.9 cm; Wt 55.0 kg
[~2018-02-10 18:17] MED LIST changes: -AMIT1TAB79 PO; +AMIT75TA2 PO; +CEFT1INJ5 IV; -DIFL200T PO; +DIPH25CA PO; +DOCU8.6T PO; -EPIP0.3I IM; +IBUP1TAB7 PO; -IBUP800T23 PO; -LEVA750T PO; -MACR100C2 PO; -PAXI20TA PO; +PAXI30TA7 PO; +PERC10TA27 PO; -PERI8.6T PO; -ROBA500T PO; +TRAM50 PO; -ULTR50TA5 PO; +[UNRECOGNIZED DRUG - OTHER]
[2018-02-10 18:26] VITALS: BP 138/63; PULSE 120; RESP 20; TEMP 99.2; O2SAT 96
[2018-02-10] MEDS ORDERED: MELO15TA20 PO (21:06)
[2018-02-10] MEDS ORDERED: BUTA1CAP PO (21:06)
[2018-02-10] MEDS ORDERED: LINEZOLID 600 MG PREMIX 300 ML IV ONE (21:15)
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
[2018-02-10 22:05] VITALS: PULSE 82; RESP 15; O2SAT 98
[2018-02-10 22:34] LABS: AUTOMATED NEUTROPHIL # 5.9 TH/MM3 (1.8-7.7); BASOPHIL % 0.4 % (0.0-2.0); EOSINOPHIL # 0.3 TH/MM3 (0-0.4); EOSINOPHIL % 3.3 % (0.0-4.0); HEMATOCRIT 40.3 % (35.0-46.0); LYMPH % 26.4 % (9.0-44.0); LYMPHOCYTE # 2.4 TH/MM3 (1.0-4.8); MEAN CELL VOLUME 91.6 FL (80.0-100.0); MEAN CORPUSCULAR HEMOGLOBIN 31.9 PG (27.0-34.0); MEAN CORPUSCULAR HGB CONC 34.8 % (32.0-36.0); MEAN PLATELET VOLUME 7.5 FL (7.0-11.0); MONO % 4.8 % (0.0-8.0); MONOCYTE # 0.4 TH/MM3 (0-0.9); NEUT % 65.1 % (16.0-70.0); PLATELET COUNT 490 TH/MM3 (150-450); RED CELL DISTRIBUTION WIDTH 14.3 % (11.6-17.2); WHITE BLOOD COUNT 9.1 TH/MM3 (4.0-11.0)
[2018-02-10 22:50] LABS: AST (GOT) 41 U/L (15-37); BLOOD UREA NITROGEN 5 MG/DL (7-18); CHLORIDE 104 MEQ/L (98-107); CREATININE 0.36 MG/DL (0.50-1.00); GLOMERULAR FILTRATION RATE 228 ML/MIN (>89); GLUCOSE,RANDOM 77 MG/DL (74-106); SODIUM (NA) 138 MEQ/L (136-145)
[2018-02-10 22:54] LABS: ALKALINE PHOSPHATASE 142 U/L (45-117); ALT (GPT) 62 U/L (10-53); TOTAL BILIRUBIN ADULT 0.2 MG/DL (0.2-1.0)
[2018-02-10] MEDS ORDERED: oxyCODONE/ACETAMINOPHEN 5 MG/325 MG TAB PO ONE (23:15)
--- NOTE | 2018-02-10 23:41 | PD ---
Data Data Last Documented VS Vital Signs Date Time Temp Pulse Resp B/P (MAP) Pulse Ox O2 Delivery O2 Flow Rate FiO2 02/10/18 22:05 82 15 98 Room Air 02/10/18 18:26 99.2 138/63 (88) Orders Orders Complete Blood Count With Diff (02/10/18 20:58) Comprehensive Metabolic Panel (02/10/18 20:58) Lactic Acid Sepsis Protocol (02/10/18 20:58) Blood Culture (02/10/18 20:58) Blood Glucose (02/10/18 20:58) Ecg Monitoring (02/10/18 20:58) Iv Access Insert/Monitor (02/10/18 20:58) Oximetry (02/10/18 20:58) Oxygen Administration (02/10/18 20:58) Westergren Sedimentation Rate (02/10/18 20:58) C-Reactive Protein (Crp) (02/10/18 20:58) Linezolid 600 Mg Premix (Zyvox 600 Mg Pr (02/10/18 21:15) Oxycodone-Acetamin 5-325 Mg (Percocet (02/10/18 23:15) Admit Order (Ed Use Only) (02/11/18 ) Labs Laboratory Tests Test 02/10/18 21:30 02/10/18 21:38 White Blood Count 9.1 TH/MM3 Red Blood Count 4.40 MIL/MM3 Hemoglobin 14.0 GM/DL Hematocrit 40.3 % Mean Corpuscular Volume 91.6 FL Mean Corpuscular Hemoglobin 31.9 PG Mean Corpuscular Hemoglobin Concent 34.8 % Red Cell Distribution Width 14.3 % Platelet Count 490 TH/MM3 Mean Platelet Volume 7.5 FL Neutrophils (%) (Auto) 65.1 % Lymphocytes (%) (Auto) 26.4 % Monocytes (%) (Auto) 4.8 % Eosinophils (%) (Auto) 3.3 % Basophils (%) (Auto) 0.4 % Neutrophils # (Auto) 5.9 TH/MM3 Lymphocytes # (Auto) 2.4 TH/MM3 Monocytes # (Auto) 0.4 TH/MM3 Eosinophils # (Auto) 0.3 TH/MM3 Basophils # (Auto) 0.0 TH/MM3 CBC Comment DIFF FINAL Differential Comment Erythrocyte Sedimentation Rate 60 mm/hr Blood Urea Nitrogen 5 MG/DL Creatinine 0.36 MG/DL Random Glucose 77 MG/DL Total Protein 8.0 GM/DL Albumin 3.0 GM/DL Calcium Level 9.0 MG/DL Alkaline Phosphatase 142 U/L Aspartate Amino Transf (AST/SGOT) 41 U/L Alanine Aminotransferase (ALT/SGPT) 62 U/L Total Bilirubin 0.2 MG/DL Sodium Level 138 MEQ/L Potassium Level 3.6 MEQ/L Chloride Level 104 MEQ/L Carbon Dioxide Level 21.0 MEQ/L Anion Gap 13 MEQ/L Estimat Glomerular Filtration Rate 228 ML/MIN C-Reactive Protein 4.00 MG/DL Lactic Acid Level 0.7 mmol/L MDM Supervised Visit with REED: Yes Narrative Course Patient CARE assume from Shahriar Camacho at 2300 at the end of his shift, this is a 22-year-old paraplegic female who presents emergency department for evaluation of a positive MRI for osteomyelitis of the foot. She is hemodynamically stable , no signs or sepsis. She was started on the nasal lid as she has multiple medication allergies. Probably will require infectious disease consult. She is stable for the floor at this time. Discussed with Dr. Murray for admission to Dr. Newell. Diagnosis Primary Impression: Osteomyelitis of foot Additional Impression: Osteomyelitis of foot, right, acute Admitting Information Admitting Physician Requests: Admit Condition: Stable Deep Hearn MD Feb 10, 2018 23:41
--- NOTE | 2018-02-11 00:59 | HHI.HP ---
[facility] Family Medicine Primary Care Physician Sandra Rangel MD Admission Diagnosis Osteomyelitis of the foot. Diagnoses: International Travel<30 Days: No Contact w/Intl Traveler<30days: No Known Affected Area: No History of Present Illness Ms. Gibson is a 22-year-old white female with a past medical history of spinal stroke causing paraplegia, anxiety, and depression presenting to the ED after being told by her PM&R doctor, Dr. Cruz, that she had osteomyelitis in her left ankle. She had an MRI done today in his office that indicated this. She states that this first started when she broke her left ankle in July. She had done well with healing up until 3 weeks ago when she was transferring on her own into her wheelchair and feels that she broke her ankle again. She is unsure of the actual inciting event, but feels that transferring was the cause. Since then she has had excruciating pain and swelling in her left ankle. She describes his pain as a 10/10 burning, aching, stinging, constant pain that is nonradiating. She states that it "feels like her foot is about to explode", nothing makes it feel better, is worse with pressure on her foot, movement, and touch. She is also had fevers and chills for the past week for which she took Tylenol and ibuprofen. She also started taking DayQuil and NyQuil because she thought she had the flu. T-max was 102F. Of note, she has had osteomyelitis twice in the past (2011 and 2015, both times in her left pelvis). 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 Osteomyelitis buttocks, IV antibiotics and hospitalized x1 year Fecal impaction and C-diff infection 2015 Recurrent UTIs Chronic Back Pain Past Surgical History Surgical debridement of osteo-2012 Gluteal flap 2014 Reported Medications Reported Meds & Active Scripts Active Proctosol Hc 2.5% (Hydrocortisone Rectal 2.5%) 2.5% Cream 1 Applic RECTAL BID PRN Zofran Odt (Ondansetron Odt) 8 Mg Tab 8 Mg SL Q8H PRN Ranitidine (Ranitidine HCl) 150 Mg Tab 150 Mg PO DAILY [Walking Boot] 1 Unit .XX Short Leg Walking Boot Amitriptyline (Amitriptyline HCl) 75 Mg Tab 75 Mg PO HS Clonazepam 1 Mg Tab 1 Mg PO TID Gabapentin 600 Mg Tab 1,200 Mg PO TID Baclofen 20 Mg Tab 40 Mg PO BID Paxil (Paroxetine HCl) 30 Mg Tab 40 Mg PO DAILY Singulair (Montelukast Sodium) 10 Mg Tab 10 Mg PO HS Lyrica (Pregabalin) 200 Mg Cap 200 Mg PO TID Ultram (Tramadol HCl) 50 Mg Tab 100 Mg PO Q6HR PRN Proair Hfa 8.5 GM Inh (Albuterol Sulfate) 90 Mcg/Act Aer 2 Puff INH Q4-6H PRN 108 mcg/actuation Reported Fioricet (Cjaihcpeoh-Cnnnuasjusyul-Yvgurybc) 50-300-40 Mg Cap 2 Cap PO Q4H PRN Meloxicam 15 Mg Tab 15 Mg PO DAILY Docusate Sodium-Senna (Sennosides-Docusate Sodium) 8.6-50 Mg Tab 2 Tab PO NEEDED Seasonique (Levonorgestrel-Ethinyl Estradiol) 0.15-0.03-0.01 Mg Tab 1 Tab PO HS (Leonarda Germain MD R1) Allergies: Coded Allergies: Cephalosporins (Verified Allergy, Severe, Facial Edema, 02/10/18) hydroxyzine (Verified Allergy, Severe, 02/10/18) FACE SWELLING lorazepam (Verified Allergy, Severe, Swelling, 02/10/18) penicillin G (Verified Allergy, Severe, 02/10/18) WAS TOLD NOT TO TAKE vancomycin (Verified Allergy, Severe, 02/10/18) "RED MAN SYNDROME", adhesive (Verified Allergy, Mild, 02/10/18) rash Family History Father- lives in [place] living and healthy Mother living and healthy Younger brother and sister living and healthy Social History Goes by the name Arik Lives with mom, baby sister and mom's boyfriend grew up in [place], [place] and 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 SKIN: No rashes, ecchymoses or lesions. Cool and dry. HEAD: Atraumatic. Normocephalic. EYES: Pupils equal round and reactive. Extraocular motions intact. No scleral icterus. No injection or drainage. ENT: Nose without bleeding, purulent drainage or septal hematoma. Throat without erythema, tonsillar hypertrophy or exudate. Uvula midline. Airway patent. NECK: Trachea midline. No JVD or lymphadenopathy. Supple, nontender, no meningeal signs. CARDIOVASCULAR: Regular rate and rhythm without murmurs, gallops, or rubs. RESPIRATORY: Clear to auscultation. Breath sounds equal bilaterally. No wheezes , rales, or rhonchi. GASTROINTESTINAL: Abdomen soft, non-tender, nondistended. No hepato-splenomegaly , or palpable masses. No guarding. MUSCULOSKELETAL: Extremities without clubbing or cyanosis. No joint tenderness, effusion, or edema noted. No calf tenderness. Muscles in bilateral lower extremities are atrophied. There is edema of her lateral left ankle which is exquisitely tender to palpation. No sores or lesions. NEUROLOGICAL: Awake and alert. Cranial nerves II through XII intact. Motor intact for bilateral upper extremities and sensory grossly within normal limits. Normal speech. Laboratory Laboratory Tests Test 02/10/18 21:30 02/10/18 21:38 White Blood Count 9.1 Red Blood Count 4.40 Hemoglobin 14.0 Hematocrit 40.3 Mean Corpuscular Volume 91.6 Mean Corpuscular Hemoglobin 31.9 Mean Corpuscular Hemoglobin Concent 34.8 Red Cell Distribution Width 14.3 Platelet Count 490 Mean Platelet Volume 7.5 Neutrophils (%) (Auto) 65.1 Lymphocytes (%) (Auto) 26.4 Monocytes (%) (Auto) 4.8 Eosinophils (%) (Auto) 3.3 Basophils (%) (Auto) 0.4 Neutrophils # (Auto) 5.9 Lymphocytes # (Auto) 2.4 Monocytes # (Auto) 0.4 Eosinophils # (Auto) 0.3 Basophils # (Auto) 0.0 CBC Comment DIFF FINAL Differential Comment Erythrocyte Sedimentation Rate 60 Blood Urea Nitrogen 5 Creatinine 0.36 Random Glucose 77 Total Protein 8.0 Albumin 3.0 Calcium Level 9.0 Alkaline Phosphatase 142 Aspartate Amino Transf (AST/SGOT) 41 Alanine Aminotransferase (ALT/SGPT) 62 Total Bilirubin 0.2 Sodium Level 138 Potassium Level 3.6 Chloride Level 104 Carbon Dioxide Level 21.0 Anion Gap 13 Estimat Glomerular Filtration Rate 228 C-Reactive Protein 4.00 Lactic Acid Level 0.7 Date/Time Source Procedure Growth Status 02/10/18 21:30 Blood Peripheral Aerobic Blood Culture Pending Received 02/10/18 21:30 Blood Peripheral Anaerobic Blood Culture Pending Received (Leonarda Germain MD R1) Result Diagram: 02/10/18212902/10/182129 Imaging MRI taken at [facility] on 02/10/18 1. Diffuse marrow edema throughout the calcaneus and in portions of the talus suspicious for osteomyelitis 2. Marrow edema in the inferolateral aspect of the base of the cuboid bone which could be significant for osteomyelitis 3. appears to be a fracture of the proximal metaphysis of the second metatarsal with plantar angulation at the fracture site. 4. Marrow edema in the first metatarsal concerning for osteomyelitis. This extends beyond the [id number] of the axial images. 5. There appears to be a fracture of the calcaneus. 6. A 1 cm synovial cyst arising from the medial aspect of the talonavicular joint. 7. First metatarsophalangeal joint effusion 8. Marrow edema in the head of the proximal phalanx of the great toe. (Leonarda Germain MD R1) Caprini VTE Risk Assessment Caprini VTE Risk Assessment: Mod/High Risk (score >= 2) Caprini Risk Assessment Model Point Value = 1 Point Value = 2 Point Value = 3 Point Value = 5 Age 41-60 Minor surgery BMI > 25 kg/m2 Swollen legs Varicose veins or History of unexplained or recurrent spontaneous Oral contraceptives or hormone replacement Sepsis (< 1 month) Serious lung disease, including pneumonia (< 1 month) Abnormal pulmonary function Acute myocardial infarction Congestive heart failure (< 1 month) History of inflammatory bowel disease Medical patient at bed rest Age 61-74 Arthroscopic surgery Major open surgery (> 45 min) Laparoscopic surgery (> 45 min) Malignancy Confined to bed (> 72 hours) Immobilizing plaster cast Central venous access Age >= 75 History of VTE Family history of VTE Factor V Leiden Prothrombin [id number] Lupus anticoagulant Anticardiolipin antibodies Elevated serum homocysteine Heparin-induced thrombocytopenia Other congenital or acquired thrombophilia Stroke (< 1 month) Elective arthroplasty Hip, pelvis, or leg fracture Acute spinal cord injury (< 1 month) Prophylaxis Regimen Total Risk Factor Score Risk Level Prophylaxis Regimen 0-1 Low Early ambulation 2 Moderate Order ONE of the following: *Sequential Compression Device (SCD) *Heparin 5000 units SQ BID 3-4 Higher Order ONE of the following medications: *Heparin 5000 units SQ TID *Enoxaparin/Lovenox 40 mg SQ daily (WT < 150 kg, CrCl > 30 mL/min) *Enoxaparin/Lovenox 30 mg SQ daily (WT < 150 kg, CrCl > 10-29 mL/min) *Enoxaparin/Lovenox 30 mg SQ BID (WT < 150 kg, CrCl > 30 mL/min) AND/OR *Sequential Compression Device (SCD) 5 or more Highest Order ONE of the following medications: *Heparin 5000 units SQ TID (Preferred with Epidurals) *Enoxaparin/Lovenox 40 mg SQ daily (WT < 150 kg, CrCl > 30 mL/min) *Enoxaparin/Lovenox 30 mg SQ daily (WT < 150 kg, CrCl > 10-29 mL/min) *Enoxaparin/Lovenox 30 mg SQ BID (WT < 150 kg, CrCl > 30 mL/min) AND *Sequential Compression Device (SCD) (Leonarda Germain MD R1) Assessment and Plan Assessment and Plan 22yo white female with a PMH of spinal stroke, anxiety, and depression presenting with left ankle osteomyelitis. [facility] Code Status Full code Discussed Condition With Dr. Saunders (Leonarda Germain MD R1) Attending Attestation Patient seen and examined. Case reviewed and discussed with the resident team. Agree with plan of care as discussed with me and documented in the resident note. (Whit Newell MD) Problem List: (1) Osteomyelitis of ankle, left, acute ICD Codes: M86.172 - Other acute osteomyelitis, left ankle and foot Status: Acute Plan: Patient initially injured her ankle in July. Re-injury occurred 3 weeks ago. Physical exam does not show any wounds as a source of infection. MRI taken on 02/10 shows fracture of the proximal metaphysis of the second metatarsal with plantar angulation at the fracture site and a fracture of the calcaneus. Osteomyelitis in the calcaneus, portions of the talus, inferior lateral aspect of the base of the cuboid bone, and first metatarsal. Labs are significant significant for elevated ESR and CRP Given 1 dose Linezolid 600 mg IV in the ED -Continue every 12 hours Aztreonam 2000 mg IV every 8 hours Consult ID, appreciate antibiotic recommendations due to patient's multiple allergies Consult podiatry, appreciate recommendations Consult PT Blood cultures pending Repeat CBC, CMP, CRP, ESR in the a.m. Continue patient's at home medication of tramadol 100 mg every 6 hours (2) Elevated liver enzymes ICD Codes: R74.8 - Abnormal levels of other serum enzymes Status: Acute Plan: LFTs elevated upon admission AST 41, ALT 62, AP 142 -Check hepatitis profile -Investigate other causes for elevated enzymes such as medications (3) Paraplegia ICD Codes: G82.20 - Paraplegia Status: Chronic Plan: Continue at home medications -Baclofen 20 mg, 2 tablets 2 times daily -Gabapentin 1200 mg 3 times a day -Lyrica 200 mg 3 times a day (4) Anxiety ICD Codes: F41.9 - Anxiety Status: Chronic Plan: -Continue at home medication of clonazepam 1 mg 3 times daily (5) Depression ICD Codes: F32.9 - Depression Status: Chronic Plan: Continue at home medication -Amitriptyline 75 mg at bedtime -Paroxetine 40 mg daily (6) FEN Status: Acute Plan: Fluids: tolerating PO Electrolytes: monitor and replete as needed Nutrition: regular basic DVT Prophylaxis: Early ambulation. Heparin 5000U subQ q8hr GI Prophylaxis: Famotidine 20 mg p.o. twice daily Fever/pain management-Tylenol 650 mg p.o. every 4 hours/Ketorolac, tramadol (Leonarda Germain MD R1) Physician Certification 2 Midnight Certification Type: Admission for Inpatient Services Order for Inpatient Services The services are ordered in accordance with Medicare regulations or non- Medicare payer requirements, as applicable. In the case of services not specified as inpatient-only, they are appropriately provided as inpatient services in accordance with the 2-midnight benchmark. Estimated LOS (days): 3 days is the estimated time the patient will need to remain in the hospital, assuming treatment plan goals are met and no additional complications. Post-Hospital Plan: Not yet determined (Leonarda Germain MD R1) Problem Qualifiers (1) Depression: Leonarda Germain MD R1 Feb 11, 2018 00:59 Whit Newell MD Feb 11, 2018 17:04
[2018-02-11] MEDS ORDERED: NALOXONE HCL 0.4 MG/ML AMP IV PUSH PRN (01:15)
[2018-02-11] MEDS ORDERED: ENALAPRILAT 1.25 MG/ML VIAL IV PUSH PRN (01:15)
[2018-02-11] MEDS ORDERED: ENOXAPARIN SODIUM 40 MG/0.4 ML SYRINGE SQ SCH (01:15)
[2018-02-11] MEDS ORDERED: ACETAMINOPHEN 325 MG TAB PO PRN (01:15)
[2018-02-11] MEDS ORDERED: KETOROLAC TROMETHAMINE 30 MG/ML (IVP) VIAL IV PUSH PRN (01:30)
[2018-02-11] MEDS ORDERED: traMADol HCL 50 MG TAB PO PRN (01:30)
[2018-02-11] MEDS ORDERED: SODIUM CHLORIDE FLUSH PRN IV FLUSH (01:30)
[2018-02-11 01:40] VITALS: O2SAT 98
[2018-02-11] MEDS ORDERED: HYDROCORTISONE 2.5% CR (ANUSOL HC) 30 GM TUBE OTHER PRN (02:00)
[2018-02-11 02:04] VITALS: BP 128/59; PULSE 76; RESP 16; TEMP 98.1; O2SAT 97
[2018-02-11] MEDS: AZTREONAM INJ 2,000 MG in SODIUM CHLORIDE 0.9% INJ 100 ML IV SCH ×3 (02:46→17:48)
[2018-02-11] MEDS ORDERED: METOCLOPRAMIDE HCL 10 MG/2 ML VIAL IV PUSH PRN (05:15)
[2018-02-11 07:12] LABS: AUTOMATED NEUTROPHIL # 3.5 TH/MM3 (1.8-7.7); BASOPHIL % 0.4 % (0.0-2.0); EOSINOPHIL # 0.2 TH/MM3 (0-0.4); EOSINOPHIL % 3.7 % (0.0-4.0); LYMPH % 35.3 % (9.0-44.0); LYMPHOCYTE # 2.2 TH/MM3 (1.0-4.8); MEAN CELL VOLUME 92.9 FL (80.0-100.0); MEAN CORPUSCULAR HEMOGLOBIN 31.8 PG (27.0-34.0); MEAN CORPUSCULAR HGB CONC 34.2 % (32.0-36.0); MEAN PLATELET VOLUME 7.4 FL (7.0-11.0); MONO % 5.6 % (0.0-8.0); MONOCYTE # 0.4 TH/MM3 (0-0.9); PLATELET COUNT 446 TH/MM3 (150-450); RED BLOOD COUNT 4.41 MIL/MM3 (4.00-5.30); RED CELL DISTRIBUTION WIDTH 14.5 % (11.6-17.2); WHITE BLOOD COUNT 6.3 TH/MM3 (4.0-11.0)
[2018-02-11 07:23] LABS: ALBUMIN 2.8 GM/DL (3.4-5.0); ALT (GPT) 59 U/L (10-53); AST (GOT) 34 U/L (15-37); BICARBONATE 21.1 MEQ/L (21.0-32.0); BLOOD UREA NITROGEN 7 MG/DL (7-18); C-REACTIVE PROTEIN 3.03 MG/DL (0.00-0.30); CALCIUM 8.6 MG/DL (8.5-10.1); CHLORIDE 109 MEQ/L (98-107); CREATININE 0.52 MG/DL (0.50-1.00); GLOMERULAR FILTRATION RATE 149 ML/MIN (>89); GLUCOSE,RANDOM 90 MG/DL (74-106); SODIUM (NA) 140 MEQ/L (136-145)
[2018-02-11 07:25] LABS: ALKALINE PHOSPHATASE 139 U/L (45-117); TOTAL BILIRUBIN ADULT 0.2 MG/DL (0.2-1.0); TOTAL PROTEIN 7.7 GM/DL (6.4-8.2)
[2018-02-11 07:41] LABS: WESTERGREN SEDIMENTATION RATE 63 mm/hr (0-20)
[2018-02-11 08:40] VITALS: BP 128/48; PULSE 70; RESP 18; TEMP 97.9; O2SAT 96
[2018-02-11] MEDS ORDERED: LINEZOLID 600 MG PREMIX 300 ML IV SCH (10:00)
[2018-02-11] MEDS: FAMOTIDINE 20 MG TAB PO SCH ×2 (10:12→20:35)
[2018-02-11] MEDS: PREGABALIN 100 MG CAP PO SCH ×3 (10:13→17:47)
[2018-02-11] MEDS: SODIUM CHLORIDE FLUSH BID IV FLUSH SCH ×2 (10:14→20:37)
[2018-02-11] MEDS: BACLOFEN 20 MG TAB PO SCH ×2 (10:14→20:36)
[2018-02-11] MEDS: clonazePAM 1 MG TAB PO SCH ×3 (10:14→17:48)
[2018-02-11] MEDS: PARoxetine HCL 20 MG TAB PO SCH (10:14)
[2018-02-11] MEDS: DOCUSATE SODIUM 50 MG/SENNA 8.6 MG TAB PO SCH ×2 (10:15→20:35)
[2018-02-11] MEDS: GABAPENTIN 300 MG CAP PO SCH ×3 (10:17→17:47)
[2018-02-11] MEDS: HEPARIN SODIUM - SQ 10,000 UNITS/ML VIAL SQ SCH ×3 (10:18→22:27)
--- NOTE | 2018-02-11 10:30 | MB ---
cc: Susan Holloway DPM DATE: 02/11/2018 CHIEF COMPLAINT: Left foot pain. HISTORY OF PRESENT ILLNESS: Ms. Gibson is a 22-year-old female patient who relates a fracture to the left ankle in 07/2017 for which she was cared for by Dr. Flowers. In the recent months, she was told that the fracture was healed, and she could begin to remove the Cam boot for weightbearing. She states that when transferring from her wheelchair to bed about 3 weeks ago, she began having severe pain in the left ankle. [place] time [place] of [place], but returned home in order to obtain further medical evaluation. She saw her PM&R doctor, Dr. Chester, who did an MRI in his office, which indicated osteomyelitis of her left ankle. He sent her to [facility] for admission and further evaluation. The patient states she continues to have severe pain in the left ankle. She states that she has never had an open wound on that leg, but does have a history of osteomyelitis in the pelvis. She also states that she has had fevers and chills for the last week, but thought that perhaps she was coming down with the flu. She reports a T-max of 102 at home. She denies any current nausea, vomiting, fever, headaches or chills. 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 difficile infection 2014, recurrent UTIs, chronic back pain. PAST SURGICAL HISTORY: Include surgical debridement of osteomyelitis [address] Dumont and a gluteal flap in 2013. MEDICATIONS: Please see list. ALLERGIES: CEPHALOSPORINS, HYDRALAZINE, LORAZEPAM, PENICILLIN, VANCOMYCIN AND ADHESIVES. FAMILY HISTORY: Noncontributory. SOCIAL HISTORY: The patient lives with family. Denies any alcohol or drug abuse, but does smoke 1 pack of cigarettes per day. PHYSICAL EXAMINATION: VITAL SIGNS: Temperature is 97.9 with a T-max of 99.2, pulse is 70, respiratory rate 18, blood pressure 128/48, pulse oximetry 96% O2 on room air. EXTREMITIES: The patient has palpable pulses. Capillary refill time less than 3 seconds. Gross sensation is diminished. Mild edema noted to the foot and ankle. No open wounds, no open lesions, no erythema, no warmth to touch, but tenderness to touch generalized throughout the entire lower extremity. LABORATORY DATA: White count is 6.3, down from 9.1; hemoglobin 14, hematocrit 41.0, platelets 446. ESR 63. Sodium 140, potassium 3.6, chloride 109, carbon dioxide 21.1, BUN 7. C-reactive protein is 3.03, down from 4.0. Blood cultures are pending. IMAGING STUDIES: No images obtained on this visit; however, the patient's MRI report shows significant osteomyelitis throughout the entire calcaneus as well as small areas in the foot and ankle including portions of the talus, the inferior lateral aspect of the base of the cuboid and the first metatarsal. ASSESSMENT AND PLAN: 1)Left foot osteomyelitis. 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 It is very advanced and diffuse throughout the rearfoot. Unfortunately, with this level of bone infection, podiatric surgical interventions are limited. I have spoken to the patient regarding this and she wishes to avoid a leg amputation. Given her age and the fact that she uses this leg for transfers, I can certainly understand her hesitation. -Infectious disease has been consulted and most likely will try long-term IV antibiotics before any extreme measures are taken. I did place a call to Dr. Harris to discuss the case in further detail. -The patient was advised for the time being to remain nonweightbearing to the left lower extremity. -Continue IV antibiotics. -We will follow closely while in-house. Thank you for this consultation. MIGEL Dunne/JOSSELYN , 09:56 AM , 10:28 AM ZACK
[2018-02-11] MEDS ORDERED: ROCURONIUM INJ 50 MG/5 ML SYRINGE IV PUSH ONE (12:00)
[2018-02-11] MEDS ORDERED: ONDANSETRON HCL 4 MG/2 ML VIAL IV PUSH ONE (12:00)
[2018-02-11] MEDS ORDERED: PROPOFOL 200 MG/20 ML AMP IV ONE (12:00)
[2018-02-11] MEDS ORDERED: LIDOCAINE HCL 1% PF 5 ML SYRINGE OTHER ONE (12:00)
[2018-02-11] MEDS ORDERED: NORMOSOL R INJ 1,000 ML IV ONE (12:00)
[2018-02-11] MEDS ORDERED: SUGAMMADEX SODIUM 200 MG/2 ML VIAL IV PUSH ONE (12:31)
[2018-02-11] MEDS ORDERED: *morphine SULFATE 4 MG/ML PERIprocedure ONLY ONE ×3 (13:44→14:13)
[2018-02-11] MEDS: ONDANSETRON ODT 4 MG TAB PO PRN (14:49)
[2018-02-11] MEDS ORDERED: DO NOT ADM ANY ANTICOAGULANT DRUGS PRN (15:00)
--- NOTE | 2018-02-11 15:49 | MP ---
cc: Susan Holloway DPM DATE OF OPERATION: 02/11/2018 SURGEON: Susan Holloway MD FILLER SHREDDER MACHINE: None. PREOPERATIVE DIAGNOSIS: Left foot calcaneal osteomyelitis. POSTOPERATIVE DIAGNOSIS: Left foot calcaneal osteomyelitis. PATHOLOGY SENT: Bone biopsy, left calcaneus, to pathology and microbiology. PROCEDURE PERFORMED: Left foot bone biopsy. ANESTHESIA: General. HEMOSTASIS: Pneumatic ankle tourniquet at 250 mmHg for 5 minutes. ESTIMATED BLOOD LOSS: Less than 5 mL. MATERIALS USED: A Jamshidi needle and 3-0 nylon. INJECTABLES: None. COMPLICATIONS: None. INDICATION FOR PROCEDURE: Ms. Gibson is a 22-year-old female patient with an MRI showing osteomyelitis of the left calcaneus. In order to better guide antibiotic therapy, infectious disease has requested a bone biopsy. The consent was signed. The procedure was explained. No guarantees were given. DESCRIPTION OF PROCEDURE: Under mild sedation, the patient was brought into the operating room and placed under anesthesia. The foot was then scrubbed, prepped and draped in the usual aseptic manner. An Esmarch bandage was used to exsanguinate the left foot and the pneumatic ankle tourniquet was inflated to 250 mmHg. A small stab incision was made at the lateral aspect of the calcaneus and deepened through the subcutaneous tissue using a hemostat and blunt dissection. A Jamshidi needle was then used to obtain a sterile bone biopsy, a portion of which was sent to pathology and a portion of which was sent to microbiology. The area was then flushed and cleansed, closed with 3-0 Prolene. Pneumatic ankle tourniquet was released. There was a prompt hyperemic response to all digits of the left foot. A sterile dressing of Telfa and Tegaderm were applied. The patient tolerated the procedure and the anesthesia well. She will recover in the PACU for a period of time before being discharged home with written and oral postoperative instructions. MIGEL Dunne/KD , 01:20 PM , 03:47 PM
[2018-02-11 16:14] VITALS: BP 135/86; PULSE 80; RESP 16; TEMP 98.8; O2SAT 98
[2018-02-11] MEDS: KETOROLAC TROMETHAMINE 30 MG/ML (IVP) VIAL IV PUSH PRN (16:55)
[2018-02-11] MEDS ORDERED: diphenhydrAMINE HCL 25 MG CAP PO PRN (17:00)
[2018-02-11] MEDS ORDERED: HYDROCORTISONE 1% OINT 30 GM TUBE TOPICAL PRN (17:00)
--- NOTE | 2018-02-11 17:32 | MB ---
cc: Zack Harris MD, Franklyn F MD DATE: 02/11/2018 REQUESTING PHYSICIAN: Dr. Saunders REASON FOR CONSULTATION: A 22-year-old paraplegic with left ankle swelling suspicious for osteomyelitis on MRI. Assist with antibiotic management. HISTORY OF PRESENT ILLNESS: This is a 22 year old white female who is paraplegic. The patient was noted to have a fracture of the left ankle in 08/2017. She was being treated conservatively. The fracture involved the calcaneus and navicular bone. The patient reports that she went [place] the [place] and, while she was there, her left ankle became swollen. She also reports that over the past week, she had flu-like illness with fever and hot and cold spells. She was evaluated by her physician and an MRI was performed and it indicated osteomyelitis of the left ankle. She was sent to [facility] for admission and evaluation. The patient reports severe pain in the left ankle. She has not had any bruises, cuts or blisters or any open wound involving the left ankle since the first MRI in August. She is afebrile. After discussion of the case with the coal tram driver, Dr. Holloway, it was decided to proceed with bone biopsy, which was done today. The pathology is pending. The patient otherwise has no complaints. Sedimentation rate is elevated at 63 and also C-reactive protein is elevated at 3.03. PAST MEDICAL HISTORY: 1. 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 History of osteomyelitis of the buttock. 3. History of Clostridium difficile in 2014 4. Recurrent urinary tract infection, 5. Chronic back pain 6. Surgery for buttock osteo. ALLERGIES: CEPHALOSPORINS, VANCOMYCIN, PENICILLIN, LORTAB, LORAZEPAM, HYDROXYZINE, ADHESIVES MEDICATIONS: 1. Elavil 2. Singulair. 3. Ambien. 4. Klonopin. 5. Baclofen. 6. Kathy-Colace. 7. Neurontin. 8. Lyrica. 9. Paxil. 10. Pepcid. 11. Reglan 12. Aztreonam 13. Linezolid is on hold. SOCIAL HISTORY: The patient smokes half a pack of cigarettes a day. No alcohol. No illicit drugs. FAMILY HISTORY: Noncontributory. REVIEW OF SYSTEMS: Significant for pain in the left ankle. Otherwise, negative on 10-point review. PHYSICAL EXAMINATION: GENERAL: This is a pleasant, well-developed female who is in no acute distress. She is awake. She is alert and oriented. VITAL SIGNS: Temperature 97.0, BP 135/73, respirations 25, heart rate is 92. HEENT: Extraocular muscles grossly intact. Pupils reactive to light. No icterus. Oropharynx moist mucosa without lesions. NECK: Supple without adenopathy. LUNGS: Clear breath sounds. HEART: Regular S1, S2, without murmurs. ABDOMEN: Bowel sounds present. Soft, no tenderness appreciated. RECTAL: Not performed. EXTREMITIES: The left ankle has tenderness on palpation over the calcaneus and also over the dorsum of the foot area near the ankle. No visible erythema. No swelling. Distal pulse is intact and is 2+. SKIN: No diffuse rash. NEUROLOGIC: The patient is paralyzed below the waist. PSYCHIATRIC: The patient is calm, pleasant and cooperative. LABORATORY DATA: WBC 6.3, platelets 446, hemoglobin 14.0, 55% neutrophils, 35% lymphocytes. Creatinine 0.52, BUN 7, sodium 140. AST 34, ALT 59. IMPRESSION: 1. Abnormal MRI involving the calcaneus of the left foot. Known to have fracture involving the calcaneus and navicular bones back in 08/2017. 2. Recent subjective fever. Questionable osteomyelitis. RECOMMENDATIONS: At this point, it is not clear that the patient is suffering from osteomyelitis. There is not much soft tissue swelling visible around the area involved on the MRI. After discussing the case with Dr. Holloway, it was decided to have biopsy performed and this was done and culture is pending. At this point, I recommend discontinuing the linezolid and keeping the aztreonam for now and following up on cultures from the biopsy and also follow the pathology. I will also order a white blood cell scan to further evaluate the calcaneus. I would be reluctant to treat empirically for osteomyelitis, unless we have more information ruling it in or excluding other possibilities for the changes at the calcaneus. If there is positive cultures that would help with determining antibiotic treatment. The patient is also ALLERGIC TO MULTIPLE ANTIBIOTICS that would make it difficult to come up with a good regimen in the absence of positive culture. The plan has been discussed with the patient and her mother. Thank you for this consultation. I will follow the patient's progress and make further recommendations on follow up. MD KEV Sanderson/ , 04:20 PM , 05:31 PM ZACK
[2018-02-11] MEDS: MORPHINE SULFATE 4 MG/ML INJ IV PUSH PRN ×2 (18:37→22:27)
[2018-02-11 20:00] VITALS: BP 121/59; PULSE 85; RESP 18; TEMP 97.9; O2SAT 98
[2018-02-11] MEDS: AMITRIPTYLINE HCL 75 MG TAB PO SCH (20:35)
[2018-02-11] MEDS: MONTELUKAST SODIUM 10 MG TAB PO SCH (20:35)
[2018-02-11] MEDS ORDERED: ZOLPIDEM TARTRATE 5 MG TAB PO PRN (21:00)
[2018-02-11] MEDS ORDERED: LEVONORGESTREL ETHINYL ESTRADIOL PO SCH (21:00)
[2018-02-11] MEDS: SODIUM CHLORIDE 0.9% FLUSH 10 ML FLUSH IV FLUSH PRN (22:29)
[2018-02-12] VITALS (7 sets, daily range): BP systolic 114–126; BP diastolic 60–69; PULSE 74–88; RESP 18; TEMP 97.1–98.7; O2SAT 97–100
[2018-02-12] MEDS: KETOROLAC TROMETHAMINE 30 MG/ML (IVP) VIAL IV PUSH PRN ×4 (01:01→21:57)
[2018-02-12] MEDS: SODIUM CHLORIDE 0.9% FLUSH 10 ML FLUSH IV FLUSH PRN ×3 (01:01→23:09)
[2018-02-12] MEDS: AZTREONAM INJ 2,000 MG in SODIUM CHLORIDE 0.9% INJ 100 ML IV SCH (01:37)
[2018-02-12] MEDS: MORPHINE SULFATE 4 MG/ML INJ IV PUSH PRN ×3 (01:37→09:39)
[2018-02-12] MEDS: HEPARIN SODIUM - SQ 10,000 UNITS/ML VIAL SQ SCH ×3 (05:46→21:57)
[2018-02-12] MEDS: BACLOFEN 20 MG TAB PO SCH ×2 (08:16→20:04)
[2018-02-12] MEDS: PREGABALIN 100 MG CAP PO SCH ×3 (08:16→17:03)
[2018-02-12] MEDS: PARoxetine HCL 20 MG TAB PO SCH (08:17)
[2018-02-12] MEDS: GABAPENTIN 300 MG CAP PO SCH ×3 (08:17→17:02)
[2018-02-12] MEDS: FAMOTIDINE 20 MG TAB PO SCH ×2 (08:18→20:04)
[2018-02-12] MEDS: clonazePAM 1 MG TAB PO SCH ×3 (08:18→17:02)
[2018-02-12] MEDS: DOCUSATE SODIUM 50 MG/SENNA 8.6 MG TAB PO SCH ×2 (08:18→20:04)
[2018-02-12] MEDS: SODIUM CHLORIDE FLUSH BID IV FLUSH SCH ×2 (08:19→20:05)
[2018-02-12 08:28] LABS: AUTOMATED NEUTROPHIL # 2.5 TH/MM3 (1.8-7.7); BASOPHIL # 0.1 TH/MM3 (0-0.2); BASOPHIL % 0.8 % (0.0-2.0); EOSINOPHIL # 0.3 TH/MM3 (0-0.4); EOSINOPHIL % 5.7 % (0.0-4.0); HEMATOCRIT 37.8 % (35.0-46.0); HEMOGLOBIN 12.7 GM/DL (11.6-15.3); LYMPH % 45.1 % (9.0-44.0); LYMPHOCYTE # 2.7 TH/MM3 (1.0-4.8); MEAN CELL VOLUME 92.9 FL (80.0-100.0); MEAN CORPUSCULAR HEMOGLOBIN 31.3 PG (27.0-34.0); MEAN CORPUSCULAR HGB CONC 33.7 % (32.0-36.0); MEAN PLATELET VOLUME 7.4 FL (7.0-11.0); MONO % 5.7 % (0.0-8.0); MONOCYTE # 0.3 TH/MM3 (0-0.9); NEUT % 42.7 % (16.0-70.0); PLATELET COUNT 368 TH/MM3 (150-450); RED BLOOD COUNT 4.06 MIL/MM3 (4.00-5.30); RED CELL DISTRIBUTION WIDTH 14.5 % (11.6-17.2)
[2018-02-12 08:38] LABS: ALBUMIN 2.6 GM/DL (3.4-5.0); ALT (GPT) 92 U/L (10-53); AST (GOT) 57 U/L (15-37); BICARBONATE 23.4 MEQ/L (21.0-32.0); CALCIUM 7.9 MG/DL (8.5-10.1); CHLORIDE 108 MEQ/L (98-107); CREATININE 0.43 MG/DL (0.50-1.00); GLOMERULAR FILTRATION RATE 185 ML/MIN (>89); GLUCOSE,RANDOM 79 MG/DL (74-106); SODIUM (NA) 140 MEQ/L (136-145)
[2018-02-12 08:40] LABS: ALKALINE PHOSPHATASE 122 U/L (45-117); TOTAL BILIRUBIN ADULT LESS THAN 0.1 MG/DL (0.2-1.0); TOTAL PROTEIN 6.6 GM/DL (6.4-8.2)
[2018-02-12 08:45] LABS: BLOOD UREA NITROGEN 9 MG/DL (7-18)
--- NOTE | 2018-02-12 08:55 | HHI.FPPN ---
Subjective Remarks No acute issues overnight. Vitals are stable, patient remains afebrile. She continues to have a throbbing pain in her left foot. She underwent bone biopsy of her left foot yesterday. She was able to sleep last night and denies any chest pain, shortness of breath, fever, chills, nausea or vomiting. She continues to have a good appetite and is voiding and stooling without difficulty. (Ignacia Givens MD R3) Objective Vitals Vital Signs Date Time Temp Pulse Resp B/P (MAP) Pulse Ox O2 Delivery O2 Flow Rate FiO2 02/12/18 08:00 98.1 82 18 116/62 (80) 100 02/12/18 04:00 97.7 86 18 115/68 (84) 99 02/12/18 00:00 97.1 74 18 126/69 (88) 98 02/11/18 20:00 97.9 85 18 121/59 (79) 98 02/11/18 16:14 98.8 80 16 135/86 (102) 98 02/11/18 14:15 97.0 92 25 135/73 (93) 97 Room Air 02/11/18 14:00 93 18 125/63 (83) 97 Room Air 02/11/18 13:45 97 18 131/74 (93) 99 Room Air 02/11/18 13:30 98.0 119 22 136/69 (91) 99 Room Air I/O 02/11/18 02/11/18 02/11/18 02/12/18 02/12/18 02/12/18 07:00 15:00 23:00 07:00 15:00 23:00 Intake Total 300 ml 420 ml Output Total 526 ml Balance 300 ml -106 ml Intake Oral 120 ml IV Total 300 ml Other 300 ml Output Urine Total 525 ml Estimated Blood Loss 1 ml # Voids 2 (Ignacia Givens MD R3) Result Diagram: 02/12/18 0754 02/11/18 0615 Objective Remarks GENERAL: This is a well-nourished, well-developed white female patient laying in bed, in no apparent distress. SKIN: No rashes, ecchymoses or lesions. Cool and dry. HEAD: Atraumatic. Normocephalic. EYES: Pupils equal round and reactive. Extraocular motions intact. No scleral icterus. No injection or drainage. ENT: Moist mucous membranes. NECK: Trachea midline. CARDIOVASCULAR: Regular rate and rhythm without murmurs, gallops, or rubs. RESPIRATORY: Clear to auscultation. Breath sounds equal bilaterally. No wheezes , rales, or rhonchi. GASTROINTESTINAL: Abdomen soft, non-tender, nondistended. No guarding. MUSCULOSKELETAL: Extremities without clubbing or cyanosis. Muscles in bilateral lower extremities are atrophied. There is edema of her lateral left ankle which is exquisitely tender to palpation. No sores or lesions. NEUROLOGICAL: Awake and alert. Cranial nerves II through XII intact. Motor intact for bilateral upper extremities and sensory grossly within normal limits. Normal speech. (Ignacia Givens MD R3) A/P Assessment and Plan 22yo white female with a PMH of spinal stroke, anxiety, and depression who presented with suspected left ankle osteomyelitis. Discharge Planning Unclear timetable, pending further diagnostic evaluation. (Ignacia Givens MD R3) Attending Attestation Patient seen and examined. Case reviewed and discussed with the resident team. Agree with plan of care as discussed with me and documented in the resident note. she was crying about her pain and requested a change in her meds. her morphine for breakthrough was stopped and changed to 1 mg dilaudid. Will need to see if she has osteo or not but can discuss with her that iv meds cannot be used for long. (Whit Newell MD) Problem List: (1) Ankle pain, left ICD Codes: M25.572 - Pain in left ankle and joints of left foot Status: Acute Plan: Patient initially injured her ankle in July. Re-injury occurred 3 weeks ago. Physical exam does not show any wounds as a source of infection. MRI taken on 02/10 shows fracture of the proximal metaphysis of the second metatarsal with plantar angulation at the fracture site and a fracture of the calcaneus. Osteomyelitis in the calcaneus, portions of the talus, inferior lateral aspect of the base of the cuboid bone, and first metatarsal. Labs are significant significant for elevated ESR and CRP s/p Linezolid 600 mg IV- this was discontinued due to risk of serotonin syndrome Aztreonam 2000 mg IV every 8 hours, stopped today due to increasing LFT's. Will proceed with further treatment based on biopsy results. Consult ID- not clear clinical picture of osteomyelitis, further evaluation with bone biopsy, follow cultures. Consult podiatry, performed bone biopsy on 02/11, non-weight bearing LLE. Discussed possible need for amputation, however patient reluctant and would like to avoid if possible. PT Blood cultures [id number] Continue patient's at home medication of tramadol 100 mg every 6 hours Morphine 4mg IV Q3H PRN breakthrough pain Toradol 30mg IV Q6H PRN pain >5 (2) Elevated liver enzymes ICD Codes: R74.8 - Abnormal levels of other serum enzymes Status: Acute Plan: Initially elevated, trended down, now trending up- may be medication side effect, as hepatitis is a known adverse reaction to aztreonam. hepatitis profile negative Will obtain liver US (3) Paraplegia ICD Codes: G82.20 - Paraplegia Status: Chronic Plan: Continue at home medications -Baclofen 20 mg, 2 tablets 2 times daily -Gabapentin 1200 mg 3 times a day -Lyrica 200 mg 3 times a day (4) Anxiety ICD Codes: F41.9 - Anxiety Status: Chronic Plan: -Continue at home medication of clonazepam 1 mg 3 times daily (5) Depression ICD Codes: F32.9 - Depression Status: Chronic Plan: Continue at home medication -Amitriptyline 75 mg at bedtime -Paroxetine 40 mg daily (6) FEN Status: Acute Plan: Fluids: tolerating PO Electrolytes: monitor and replete as needed Nutrition: regular basic DVT Prophylaxis: Early ambulation. Heparin 5000U subQ q8hr GI Prophylaxis: Famotidine 20 mg p.o. twice daily Fever/pain management-Tylenol 650 mg p.o. every 4 hours/Ketorolac, tramadol (Ignacia Givens MD R3) Problem Qualifiers (1) Ankle pain, left: Qualified Codes: M25.572 - Pain in left ankle and joints of left foot (2) Depression: Qualified Codes: F33.9 - Major depressive disorder, recurrent, unspecified Ignacia Givens MD R3 Feb 12, 2018 08:55 Whit Newell MD Feb 12, 2018 16:16
[2018-02-12] MEDS: HYDROmorphone HCL PF 2 MG/ML VIAL IV PUSH PRN ×4 (14:02→23:08)
[2018-02-12] MEDS: AMITRIPTYLINE HCL 75 MG TAB PO SCH (20:04)
[2018-02-12] MEDS: MONTELUKAST SODIUM 10 MG TAB PO SCH (20:04)
--- NOTE | 2018-02-12 21:17 | RADRPT ---
EXAM DATE: 02/12/2018 9:10 PM EDT AGE/SEX: 22 years / Female INDICATIONS: Elevated labs. CLINICAL DATA: This is the patient's initial encounter. Patient reports that signs and symptoms have been present for 1 day and indicates a pain score of 0/10. MEDICAL/SURGICAL HISTORY: Gastroesophageal reflux disease. Arthritis. CVA. Concussion. UTI. Pa ralyzed. . Skin graft. COMPARISON: No prior exams available for comparison. MEASUREMENTS (cm x cm x cm): Liver:__ 17.7 cm length Common Bile Duct:__ Nonvisualized Right Kidney:__ 9.9 x 4.9 x 4.1 cm FINDINGS: Liver: Increased echotexture without focal lesion or ductal dilation. Portal Vein: Hepatopedal flow seen in portal vein. Common Duct: Not visualized Gallbladder: Demonstrates no wall thickening or pericholecystic fluid. No stones visualized. Gallbla dder Wall: 3 mm Pancreas: The visualized portions are within normal limits Right Kidney: Increased echotexture. No mass or hydronephrosis. Other: None. CONCLUSION: 1. Fatty liver. No gallstones. Bile duct not clearly visualized. No right-sided hydronephrosis. Electronically signed by: Manolo Evans MD 02/12/2018 9:16 PM EDT
[2018-02-13] MEDS: SODIUM CHLORIDE 0.9% FLUSH 10 ML FLUSH IV FLUSH PRN ×4 (02:07→22:36)
[2018-02-13] MEDS: HYDROmorphone HCL PF 2 MG/ML VIAL IV PUSH PRN ×6 (02:07→22:37)
[2018-02-13] MEDS: KETOROLAC TROMETHAMINE 30 MG/ML (IVP) VIAL IV PUSH PRN ×2 (04:50→10:52)
[2018-02-13 05:00] VITALS: BP 136/74; PULSE 80; RESP 16; TEMP 97.9; O2SAT 99
[2018-02-13] MEDS: HEPARIN SODIUM - SQ 10,000 UNITS/ML VIAL SQ SCH ×3 (06:13→22:36)
[2018-02-13 08:00] VITALS: BP 124/67; PULSE 77; RESP 20; TEMP 98.1; O2SAT 98
[2018-02-13] MEDS: SODIUM CHLORIDE FLUSH BID IV FLUSH SCH ×2 (09:00→19:38)
--- NOTE | 2018-02-13 09:03 | HHI.PR ---
Subjective Remarks Reports significant pain causing her to wake up crying, worse after bone biopsy. Objective Vital Signs Date Time Temp Pulse Resp B/P (MAP) Pulse Ox O2 Delivery O2 Flow Rate FiO2 02/13/18 05:00 97.9 80 16 136/74 (94) 99 02/12/18 21:55 98 21 02/12/18 21:30 98.7 88 18 118/60 (79) 97 02/12/18 13:47 98 21 I/O 02/12/18 02/12/18 02/12/18 02/13/18 02/13/18 02/13/18 07:00 15:00 23:00 07:00 15:00 23:00 Intake Total 950 ml 900 ml Balance 950 ml 900 ml Intake Oral 950 ml 900 ml # Voids 2 1 4 # Bowel Movements 0 0 Result Diagram: 02/12/18 0754 02/12/18 0804 Imaging MRI outpt for OM calc and hindfoot Procedures SP bone left calcaneus biopsy Dr Holloway Objective Remarks A and O x 3 NAD non labored respirations Flaccid BL LE, sensation claimed to be intact, pulses palpable, Left lateral hindfoot incision intact with minimal bleeding noted, no significant redness or swelling Medications and IVs Administered Medications Medications (Trade) Dose Ordered Sig/Rashida Route PRN Reason Start Time Stop Time Status Last Admin Dose Admin Sodium Chloride (NS Flush) 2 ml BID IV FLUSH 02/11/18 09:00 02/12/18 20:05 Sodium Chloride (NS Flush) 2 ml UNSCH PRN IV FLUSH FLUSH AFTER USING IV ACCESS 02/11/18 01:15 02/13/18 06:07 Senna/Docusate Sodium (Kathy-Colace) 1 tab BID PO 02/11/18 09:00 02/12/18 20:04 Ondansetron HCl (Zofran Odt) 8 mg Q6H PRN PO NAUSEA OR VOMITING 02/11/18 01:15 02/11/18 14:49 Heparin Sodium (Porcine) (Heparin Inj) 5,000 units Q8HR SQ 02/11/18 06:00 02/13/18 06:13 Amitriptyline HCl (Elavil) 75 mg HS PO 02/11/18 21:00 02/12/18 20:04 Baclofen (Lioresal) 40 mg BID PO 02/11/18 09:00 02/12/18 20:04 Clonazepam (KlonoPIN) 1 mg TID PO 02/11/18 09:00 02/12/18 17:02 Gabapentin (Neurontin) 1,200 mg TID PO 02/11/18 09:00 02/12/18 17:02 Montelukast Sodium (Singulair) 10 mg HS PO 02/11/18 21:00 02/12/18 20:04 Pregabalin (Lyrica) 200 mg TID PO 02/11/18 09:00 02/12/18 17:03 Tramadol HCl (Ultram) 100 mg Q6HR PRN PO PAIN LESS THAN 5 02/11/18 01:30 02/12/18 11:40 Paroxetine HCl (Paxil) 40 mg DAILY PO 02/11/18 09:00 02/12/18 08:17 Famotidine (Pepcid) 20 mg BID PO 02/11/18 09:00 02/12/18 20:04 Ketorolac Tromethamine (Toradol Inj) 30 mg Q6H PRN IV PUSH PAIN GREATER THAN/EQUAL TO 5 02/11/18 02:00 02/16/18 01:59 02/13/18 04:50 Metoclopramide HCl (Reglan Inj) 10 mg Q8H PRN IV PUSH NAUSEA OR VOMITING 02/11/18 05:15 02/11/18 06:59 Hydromorphone HCl (Dilaudid Pf Inj) 1 mg Q3H PRN IV PUSH BREAKTHROUGH PAIN 02/12/18 13:45 02/13/18 06:08 Assessment and Plan Problem List: (1) Osteomyelitis of foot ICD Codes: M86.9 - Osteomyelitis, unspecified Status: Acute Assessment and Plan Awaiting bone biopsy results, nursing to change bandage. Will advise pending results. Poor pain control, requesting increase in meds, I will leave this to medicine. Problem Qualifiers (1) Osteomyelitis of foot: Clemente Marie DPM Feb 13, 2018 09:03
[2018-02-13] MEDS: BACLOFEN 20 MG TAB PO SCH ×2 (09:08→20:30)
[2018-02-13] MEDS: PARoxetine HCL 20 MG TAB PO SCH (09:08)
[2018-02-13] MEDS: DOCUSATE SODIUM 50 MG/SENNA 8.6 MG TAB PO SCH ×2 (09:08→20:31)
[2018-02-13] MEDS: clonazePAM 1 MG TAB PO SCH ×3 (09:08→17:36)
[2018-02-13] MEDS: FAMOTIDINE 20 MG TAB PO SCH ×2 (09:08→20:30)
[2018-02-13] MEDS: GABAPENTIN 300 MG CAP PO SCH ×3 (09:08→17:36)
[2018-02-13] MEDS: PREGABALIN 100 MG CAP PO SCH ×3 (09:08→17:36)
[2018-02-13 09:49] LABS: AUTOMATED NEUTROPHIL # 3.2 TH/MM3 (1.8-7.7); BASOPHIL % 0.6 % (0.0-2.0); EOSINOPHIL # 0.3 TH/MM3 (0-0.4); EOSINOPHIL % 5.1 % (0.0-4.0); HEMOGLOBIN 12.6 GM/DL (11.6-15.3); LYMPH % 35.9 % (9.0-44.0); LYMPHOCYTE # 2.1 TH/MM3 (1.0-4.8); MEAN CELL VOLUME 94.1 FL (80.0-100.0); MEAN PLATELET VOLUME 7.8 FL (7.0-11.0); MONO % 5.3 % (0.0-8.0); MONOCYTE # 0.3 TH/MM3 (0-0.9); NEUT % 53.1 % (16.0-70.0); PLATELET COUNT 403 TH/MM3 (150-450); RED BLOOD COUNT 3.93 MIL/MM3 (4.00-5.30); RED CELL DISTRIBUTION WIDTH 14.4 % (11.6-17.2)
[2018-02-13 10:12] LABS: ALBUMIN 2.7 GM/DL (3.4-5.0); AST (GOT) 53 U/L (15-37); BICARBONATE 25.6 MEQ/L (21.0-32.0); BLOOD UREA NITROGEN 7 MG/DL (7-18); CALCIUM 8.6 MG/DL (8.5-10.1); CHLORIDE 106 MEQ/L (98-107); CREATININE 0.34 MG/DL (0.50-1.00); GLOMERULAR FILTRATION RATE 243 ML/MIN (>89); GLUCOSE,RANDOM 74 MG/DL (74-106); SODIUM (NA) 138 MEQ/L (136-145)
[2018-02-13 10:14] LABS: ALT (GPT) 100 U/L (10-53)
[2018-02-13 10:16] LABS: ALKALINE PHOSPHATASE 119 U/L (45-117); TOTAL BILIRUBIN ADULT 0.1 MG/DL (0.2-1.0); TOTAL PROTEIN 6.6 GM/DL (6.4-8.2)
--- NOTE | 2018-02-13 11:01 | HHI.FPPN ---
Subjective Remarks No acute issues overnight, vitals are stable, patient remains afebrile. She continues to have throbbing pain in her left foot and does not feel that the Dilaudid dose is high enough. She states that the pain wakes her from sleep and makes her cry. She denies any chest pain, shortness of breath, fever, chills, nausea or vomiting. (Ignacia Givens MD R3) Objective Vitals Vital Signs Date Time Temp Pulse Resp B/P (MAP) Pulse Ox O2 Delivery O2 Flow Rate FiO2 02/13/18 08:00 98.1 77 20 124/67 (86) 98 02/13/18 05:00 97.9 80 16 136/74 (94) 99 02/12/18 21:55 98 21 02/12/18 21:30 98.7 88 18 118/60 (79) 97 02/12/18 13:47 98 21 I/O 02/12/18 02/12/18 02/12/18 02/13/18 02/13/18 02/13/18 07:00 15:00 23:00 07:00 15:00 23:00 Intake Total 950 ml 900 ml Balance 950 ml 900 ml Intake Oral 950 ml 900 ml # Voids 2 1 4 # Bowel Movements 0 0 (Ignacia Givens MD R3) Result Diagram: 02/13/18 0830 02/13/18 0830 Imaging Last Impressions Liver Ultrasound 02/12/18 0000 Signed Impressions: CONCLUSION: 1. Fatty liver. No gallstones. Bile duct not clearly visualized. No right-side d hydronephrosis. Objective Remarks GENERAL: This is a well-nourished, well-developed white female patient laying in bed, in no acute distress. SKIN: No rashes, ecchymoses or lesions. Cool and dry. Bandage over left foot biopsy site. HEAD: Atraumatic. Normocephalic. EYES: Pupils equal round and reactive. Extraocular motions intact. No scleral icterus. No injection or drainage. ENT: Moist mucous membranes. NECK: Trachea midline. CARDIOVASCULAR: Regular rate and rhythm without murmurs, gallops, or rubs. RESPIRATORY: Clear to auscultation. Breath sounds equal bilaterally. No wheezes , rales, or rhonchi. GASTROINTESTINAL: Abdomen soft, non-tender, nondistended. No guarding. MUSCULOSKELETAL: Extremities without clubbing or cyanosis. Muscles in bilateral lower extremities are atrophied. Lateral left ankle tender to palpation. No sores or lesions. NEUROLOGICAL: Awake and alert. Cranial nerves II through XII intact. Motor intact for bilateral upper extremities and sensory grossly within normal limits. Normal speech. (Ignacia Givens MD R3) A/P Assessment and Plan 22yo white female with a PMH of spinal stroke, anxiety, and depression who presented with suspected left ankle osteomyelitis. Discharge Planning Unclear timetable, pending further diagnostic evaluation. (Ignacia Givens MD R3) Attending Attestation Patient seen and examined. Case reviewed and discussed with the resident team. Agree with plan of care as discussed with me and documented in the resident note. on review of chart, she gets relief with her iv dilaudid. however, she was not getting her regular meds and only dilaudid so her pain would get very bad between doses. will readjust meds so she gets po narcotics plus iv breakthrough. (Whit Newell MD) Problem List: (1) Ankle pain, left ICD Codes: M25.572 - Pain in left ankle and joints of left foot Status: Acute Plan: Patient initially injured her ankle in July. Re-injury occurred 3 weeks ago. Physical exam does not show any wounds as a source of infection. MRI 02/10 shows fracture of the proximal metaphysis of the second metatarsal with plantar angulation at the fracture site and a fracture of the calcaneus. Osteomyelitis in the calcaneus, portions of the talus, inferior lateral aspect of the base of the cuboid bone, and first metatarsal. Labs are significant significant for elevated ESR and CRP s/p Linezolid 600 mg IV- this was discontinued due to risk of serotonin syndrome Aztreonam 2000 mg IV every 8 hours, stopped 02/12 due to increasing LFT's. Will proceed with further treatment based on biopsy results. Consult ID- not clear clinical picture of osteomyelitis, further evaluation with bone biopsy, follow cultures. Consult podiatry, performed bone biopsy on 02/11, non-weight bearing LLE. Discussed possible need for amputation, however patient reluctant and would like to avoid if possible. PT Blood cultures NG2D Given significant pain, will transition from home Tramadol to oxycodone 10mg PO Q6H Continue Dilaudid 1mg IV Q3H PRN breakthrough pain DC Toradol today (2) Elevated liver enzymes ICD Codes: R74.8 - Abnormal levels of other serum enzymes Status: Acute Plan: Initially elevated, then trending up, now stabilized- may be medication side effect, as hepatitis is a known adverse reaction to aztreonam. hepatitis profile negative Liver US shows fatty liver Continue to monitor (3) Paraplegia ICD Codes: G82.20 - Paraplegia Status: Chronic Plan: Continue home medications -Baclofen 20 mg, 2 tablets 2 times daily -Gabapentin 1200 mg 3 times a day -Lyrica 200 mg 3 times a day (4) Anxiety ICD Codes: F41.9 - Anxiety Status: Chronic Plan: -Continue at home medication of clonazepam 1 mg 3 times daily (5) Depression ICD Codes: F32.9 - Depression Status: Chronic Plan: Continue at home medication -Amitriptyline 75 mg at bedtime -Paroxetine 40 mg daily (6) FEN Status: Acute Plan: Fluids: tolerating PO Electrolytes: monitor and replete as needed Nutrition: regular basic DVT Prophylaxis: Early ambulation. Heparin 5000U subQ q8hr GI Prophylaxis: Famotidine 20 mg p.o. twice daily (Ignacia Givens MD R3) Problem Qualifiers (1) Ankle pain, left: Qualified Codes: M25.572 - Pain in left ankle and joints of left foot (2) Depression: Qualified Codes: F33.9 - Major depressive disorder, recurrent, unspecified Ignacia Givens MD R3 Feb 13, 2018 11:01 Whit Newell MD Feb 13, 2018 11:53
[2018-02-13 12:00] VITALS: BP 139/78; PULSE 78; RESP 20; TEMP 98.3; O2SAT 98
--- NOTE | 2018-02-13 13:23 | RADRPT ---
EXAM DATE: 02/13/2018 1:14 PM EDT AGE/SEX: 22 years / Female INDICATIONS: Paraplegic with left ankle swelling suspicious for osteomyelitis. CLINICAL DATA: This is the patient's initial encounter. Patient reports that signs and symptoms have been present for 1 day and indicates a pain score of 0/10. Location: , Laterality: MEDICAL/SURGICAL HISTORY: . Spinal Stroke. Smoker. . Bone Biopsy. COMPARISON: No prior exams available for comparison. No external comparison. DOSE: 21.2 mCi Tc99m Ceretec labeled white blood cells IV IMAGING TIMES: 30 min , 3 hrs 20 hr IMAGING: Spect/CT imaging with fusion was performed. RADIATION DOSE: 4.08 CTDIvol(mGy) Multiple day study TECHNIQUE: Following the in vitro labeling of autologous white cells and reinjection, whole body sca n was performed at the specified times. SPECT imaging was performed at the specified time in sagittal , axial and coronal planes. Attenuation correction was performed with the computed tomography and akrla th the attenuation correction and non-attenuation corrected data sets were reviewed. FINDINGS: The examination demonstrates a large area of abnormal white cell accumulation involving the left calc aneus. The CT source data set demonstrates abnormal mineralization throughout the calcaneus. There is rarefaction of bone. The examination would be concerning for osteomyelitis involving the left calcan eus. CONCLUSION: 1. Extensive abnormal tracer accumulation throughout the left calcaneus concerning for osteomyelitis . Electronically signed by: Rd Thomas MD 02/13/2018 1:22 PM EDT
[2018-02-13] MEDS: ONDANSETRON ODT 4 MG TAB PO PRN (13:44)
[2018-02-13 16:37] VITALS: BP 147/76; PULSE 81; RESP 20; TEMP 98.1; O2SAT 98
--- NOTE | 2018-02-13 17:10 | HHI.IDPN ---
Note Infectious Disease Note Patient continues to have pain in the left ankle. Afebrile. White blood cell scan is concerning for osteomyelitis involving the calcaneus. Bone biopsy culture no growth at 48 hours. Bone biopsy pathology pending. The patient was noted to have a fracture of the left ankle in 08/2017. She was being treated conservatively. PAST MEDICAL HISTORY: 1. 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 History of osteomyelitis of the buttock. 3. History of Clostridium difficile in 2014 4. Recurrent urinary tract infection, 5. Chronic back pain 6. Surgery for buttock osteo. ALLERGIES: CEPHALOSPORINS, VANCOMYCIN, PENICILLIN, LORTAB, LORAZEPAM, HYDROXYZINE, ADHESIVES MEDICATIONS: Current Medications Medications (Trade) Dose Ordered Sig/Rashida Route PRN Reason Start Time Stop Time Status Last Admin Dose Admin Sodium Chloride (NS Flush) 2 ml BID IV FLUSH 02/11/18 09:00 02/13/18 09:00 Sodium Chloride (NS Flush) 2 ml UNSCH PRN IV FLUSH FLUSH AFTER USING IV ACCESS 02/11/18 01:15 02/13/18 06:07 Acetaminophen (Tylenol) 650 mg Q4H PRN PO TEMP > 100.4 02/11/18 01:15 Naloxone HCl (Narcan Inj) 0.4 mg UNSCH PRN IV PUSH SEE LABEL COMMENTS 02/11/18 01:15 Senna/Docusate Sodium (Kathy-Colace) 1 tab BID PO 02/11/18 09:00 02/13/18 09:08 Ondansetron HCl (Zofran Odt) 8 mg Q6H PRN PO NAUSEA OR VOMITING 02/11/18 01:15 02/13/18 13:44 Enalaprilat (Vasotec Inj) 1.25 mg Q6H PRN IV PUSH SBP>170, DBP>100, HR>65 02/11/18 01:15 Heparin Sodium (Porcine) (Heparin Inj) 5,000 units Q8HR SQ 02/11/18 06:00 02/13/18 13:35 Amitriptyline HCl (Elavil) 75 mg HS PO 02/11/18 21:00 02/12/18 20:04 Baclofen (Lioresal) 40 mg BID PO 02/11/18 09:00 02/13/18 09:08 Clonazepam (KlonoPIN) 1 mg TID PO 02/11/18 09:00 02/13/18 13:34 Gabapentin (Neurontin) 1,200 mg TID PO 02/11/18 09:00 02/13/18 13:34 Montelukast Sodium (Singulair) 10 mg HS PO 02/11/18 21:00 02/12/18 20:04 Pregabalin (Lyrica) 200 mg TID PO 02/11/18 09:00 02/13/18 13:34 Hydrocortisone (Anusol Hc 2.5% Rect Cream) 1 applic BID PRN OTHER SEE LABEL COMMENTS 02/11/18 02:00 Patient Own Medication PT OWN: Levonorgestrel-Ethinyl Estrad... HS PO 02/11/18 21:00 Future Hold Paroxetine HCl (Paxil) 40 mg DAILY PO 02/11/18 09:00 02/13/18 09:08 Famotidine (Pepcid) 20 mg BID PO 02/11/18 09:00 02/13/18 09:08 Metoclopramide HCl (Reglan Inj) 10 mg Q8H PRN IV PUSH NAUSEA OR VOMITING 02/11/18 05:15 02/11/18 06:59 Zolpidem Tartrate (Ambien) 5 mg HS PRN PO INSOMNIA 02/11/18 21:00 Hydrocortisone (Nutracort 1% Oint) 1 applic QID PRN TOPICAL ITCHING AND/OR RASH 02/11/18 17:00 Diphenhydramine HCl (Benadryl) 25 mg Q6H PRN PO ALLERGIC REACTION 02/11/18 17:00 Hydromorphone HCl (Dilaudid Pf Inj) 1 mg Q3H PRN IV PUSH BREAKTHROUGH PAIN 02/12/18 13:45 02/13/18 16:26 Oxycodone HCl (Roxicodone) 10 mg Q6H PRN PO PAIN SCALE 5 TO 10 02/13/18 12:00 02/13/18 13:43 PHYSICAL EXAMINATION: GENERAL: Patient in no acute distress. Awake and alert. HEENT: Extraocular muscles grossly intact. Pupils reactive to light. No icterus. Oropharynx moist mucosa without lesions. NECK: Supple without adenopathy. LUNGS: Clear breath sounds. HEART: Regular S1, S2, without murmurs. ABDOMEN: Bowel sounds present. Soft, no tenderness appreciated. EXTREMITIES: The left ankle has tenderness on palpation over the calcaneus and also over the dorsum of the foot area near the ankle. No visible erythema. No swelling. Distal pulse is intact and is 2+. SKIN: No diffuse rash. NEUROLOGIC: The patient is paralyzed below the waist. PSYCHIATRIC: Calm, pleasant and cooperative. IMPRESSION: Abnormal MRI involving the calcaneus of the left foot. The patient with known fracture involving the calcaneus and navicular bones back in 08/2017. White blood cell scan suggested osteomyelitis of the calcaneus. Bone biopsy pathology pending. Biopsy culture pending. RECOMMENDATIONS: Continue with aztreonam. Add Daptomycin for gram-positive coverage. Patient is allergic to vancomycin. Follow culture and pathology. Option at this time is to empirically treat for osteomyelitis and follow sedimentation rate and scans and if not improving do amputation versus proceeding directly to amputation now. Zack Harris MD Feb 13, 2018 17:09
[2018-02-13] MEDS ORDERED: DAPTOmycin INJ 500 MG in SODIUM CHLORIDE 0.9% INJ 100 ML IV SCH (18:00)
[2018-02-13 20:00] VITALS: BP 145/77; PULSE 87; RESP 18; TEMP 98.7; O2SAT 99
[2018-02-13] MEDS: MONTELUKAST SODIUM 10 MG TAB PO SCH (20:30)
[2018-02-13] MEDS: AMITRIPTYLINE HCL 75 MG TAB PO SCH (20:31)
[2018-02-14] VITALS: BP 130/76; PULSE 81; RESP 18; TEMP 98.1; O2SAT 95
[2018-02-14] MEDS: HYDROmorphone HCL PF 2 MG/ML VIAL IV PUSH PRN ×5 (02:06→21:33)
[2018-02-14 04:00] VITALS: BP 130/66; PULSE 66; RESP 18; TEMP 98.3; O2SAT 97
[2018-02-14] MEDS: HEPARIN SODIUM - SQ 10,000 UNITS/ML VIAL SQ SCH ×3 (05:40→21:34)
[2018-02-14] MEDS: SODIUM CHLORIDE 0.9% FLUSH 10 ML FLUSH IV FLUSH PRN (05:42)
[2018-02-14 08:00] VITALS: BP 124/65; PULSE 69; RESP 17; TEMP 98.1; O2SAT 100
[2018-02-14] MEDS: clonazePAM 1 MG TAB PO SCH ×3 (09:25→17:42)
[2018-02-14] MEDS: PARoxetine HCL 20 MG TAB PO SCH (09:25)
[2018-02-14] MEDS: DOCUSATE SODIUM 50 MG/SENNA 8.6 MG TAB PO SCH ×2 (09:25→20:08)
[2018-02-14] MEDS: PREGABALIN 100 MG CAP PO SCH ×3 (09:25→17:42)
[2018-02-14] MEDS: FAMOTIDINE 20 MG TAB PO SCH ×2 (09:25→20:08)
[2018-02-14] MEDS: BACLOFEN 20 MG TAB PO SCH ×2 (09:25→20:08)
[2018-02-14] MEDS: GABAPENTIN 300 MG CAP PO SCH ×3 (09:25→17:43)
[2018-02-14] MEDS: SODIUM CHLORIDE FLUSH BID IV FLUSH SCH ×2 (09:26→20:08)
[2018-02-14 10:38] LABS: ALBUMIN 2.8 GM/DL (3.4-5.0); AST (GOT) 44 U/L (15-37); BICARBONATE 20.2 MEQ/L (21.0-32.0); BLOOD UREA NITROGEN 9 MG/DL (7-18); CALCIUM 8.7 MG/DL (8.5-10.1); CHLORIDE 107 MEQ/L (98-107); CREATININE 0.46 MG/DL (0.50-1.00); GLOMERULAR FILTRATION RATE 171 ML/MIN (>89); GLUCOSE,RANDOM 81 MG/DL (74-106); SODIUM (NA) 139 MEQ/L (136-145)
[2018-02-14 10:43] LABS: ALKALINE PHOSPHATASE 123 U/L (45-117); ALT (GPT) 97 U/L (10-53); TOTAL BILIRUBIN ADULT LESS THAN 0.1 MG/DL (0.2-1.0); TOTAL PROTEIN 7.1 GM/DL (6.4-8.2)
[2018-02-14 10:44] LABS: HEMATOCRIT 40.9 % (35.0-46.0); HEMOGLOBIN 13.5 GM/DL (11.6-15.3); MEAN CELL VOLUME 96.6 FL (80.0-100.0); MEAN CORPUSCULAR HEMOGLOBIN 31.8 PG (27.0-34.0); MEAN CORPUSCULAR HGB CONC 32.9 % (32.0-36.0); MEAN PLATELET VOLUME 7.8 FL (7.0-11.0); PLATELET COUNT 379 TH/MM3 (150-450); RED BLOOD COUNT 4.24 MIL/MM3 (4.00-5.30); RED CELL DISTRIBUTION WIDTH 14.5 % (11.6-17.2); WHITE BLOOD COUNT 6.9 TH/MM3 (4.0-11.0)
--- NOTE | 2018-02-14 10:47 | HHI.FPPN ---
Subjective Remarks No acute events overnight. Patient states that she is in severe pain this morning in her left leg. She reports that the IV Dilaudid and Roxicodone are relieving her pain but she would like them more frequently. She has no other complaints this morning. She reports that her last bowel movement was yesterday. She denies any fevers, chest pain, shortness of breath nausea vomiting, and abdominal pain. (Priyanka Galvez MD R1) Objective Vitals Vital Signs Date Time Temp Pulse Resp B/P (MAP) Pulse Ox O2 Delivery O2 Flow Rate FiO2 02/14/18 08:00 98.1 69 17 124/65 (84) 100 02/14/18 04:00 98.3 66 18 130/66 (87) 97 02/14/18 00:00 98.1 81 18 130/76 (94) 95 02/13/18 20:00 98.7 87 18 145/77 (99) 99 02/13/18 16:37 98.1 81 20 147/76 (99) 98 02/13/18 12:00 98.3 78 20 139/78 (98) 98 I/O 02/13/18 02/13/18 02/13/18 02/14/18 02/14/18 02/14/18 07:00 15:00 23:00 07:00 15:00 23:00 Intake Total 900 ml 720 ml Output Total 900 ml Balance 900 ml -180 ml Intake Oral 900 ml 720 ml Output Urine Total 900 ml # Voids 4 1 3 # Bowel Movements 0 1 (Priyanka Galvez MD R1) Result Diagram: 02/14/18 0953 02/14/18 0950 Objective Remarks GENERAL: This is a well-nourished, well-developed white female patient laying in bed, in no acute distress. SKIN: No rashes, ecchymoses or lesions. Cool and dry. Bandage over left foot biopsy site. HEAD: Atraumatic. Normocephalic. NECK: Trachea midline. CARDIOVASCULAR: Regular rate and rhythm without murmurs, gallops, or rubs. RESPIRATORY: Clear to auscultation. Breath sounds equal bilaterally. No wheezes , rales, or rhonchi. GASTROINTESTINAL: Abdomen soft, non-tender, nondistended. No guarding. MUSCULOSKELETAL: Extremities without clubbing or cyanosis. Muscles in bilateral lower extremities are atrophied. Lateral left ankle tender to palpation. No sores or lesions. NEUROLOGICAL: Awake and alert. (Priyanka Galvez MD R1) A/P Assessment and Plan 22yo white female with a PMH of spinal stroke, anxiety, and depression who presented with suspected left ankle osteomyelitis. Discharge Planning Unclear timetable, pending further diagnostic evaluation. Pending bone biopsy. (Priyanka Galvez MD R1) Attending Attestation Patient seen and examined. Case reviewed and discussed with the resident team. Agree with plan of care as discussed with me and documented in the resident note. will adjust her po pain meds as she is still complaining about extreme pain. her path report should be back soon (Whit Newell MD) Problem List: (1) Ankle pain, left ICD Codes: M25.572 - Pain in left ankle and joints of left foot Status: Acute Plan: Patient initially injured her ankle in July. Re-injury occurred 3 weeks ago. Physical exam does not show any wounds as a source of infection. MRI 02/10 shows fracture of the proximal metaphysis of the second metatarsal with plantar angulation at the fracture site and a fracture of the calcaneus. Osteomyelitis in the calcaneus, portions of the talus, inferior lateral aspect of the base of the cuboid bone, and first metatarsal. White blood cell scan is concerning for osteomyelitis involving the calcaneus. Labs are significant significant for elevated ESR and CRP s/p Linezolid 600 mg IV- this was discontinued due to risk of serotonin syndrome ID consulted, appreciated recs. not clear clinical picture of osteomyelitis, further evaluation with bone biopsy, follow cultures. Aztreonam 2000 mg IV every 8 hours, stopped 02/12 due to increasing LFT's. Restart aztreonam 2000 mg IV every 8 hours today for possible osteomyelitis. W Daptomycin 500mg IV q24 added for gram-positive coverage (started 02/13-) Patient is allergic to vancomycin. Consulted podiatry, performed bone biopsy on 02/11, non-weight bearing LLE. Discussed possible need for amputation, however patient reluctant and would like to avoid if possible. PT Blood cultures NGTD Pain Control: Oxycodone 10 mg p.o. every 4 hours SHAHEEN Continue Dilaudid 1mg IV Q3H PRN pain 6-10 (2) Elevated liver enzymes ICD Codes: R74.8 - Abnormal levels of other serum enzymes Status: Acute Plan: Initially elevated, then trending up, now stabilized- may be medication side effect, as hepatitis is a known adverse reaction to aztreonam. However patient started on aztreonam today for coverage of osteomyelitis. hepatitis profile negative Liver US shows fatty liver Continue to monitor (3) Paraplegia ICD Codes: G82.20 - Paraplegia Status: Chronic Plan: Continue home medications -Baclofen 20 mg, 2 tablets 2 times daily -Gabapentin 1200 mg 3 times a day -Lyrica 200 mg 3 times a day (4) Anxiety ICD Codes: F41.9 - Anxiety Status: Chronic Plan: -Continue at home medication of clonazepam 1 mg 3 times daily (5) Depression ICD Codes: F32.9 - Depression Status: Chronic Plan: Continue at home medication -Amitriptyline 75 mg at bedtime -Paroxetine 40 mg daily (6) FEN Status: Acute Plan: Fluids: tolerating PO Electrolytes: monitor and replete as needed Nutrition: regular basic DVT Prophylaxis: Early ambulation. Heparin 5000U subQ q8hr GI Prophylaxis: Famotidine 20 mg p.o. twice daily (Priyanka Galvez MD R1) Problem Qualifiers (1) Ankle pain, left: Qualified Codes: M25.572 - Pain in left ankle and joints of left foot (2) Depression: Qualified Codes: F33.9 - Major depressive disorder, recurrent, unspecified Priyanka Galvez MD R1 Feb 14, 2018 10:47 Whit Newell MD Feb 15, 2018 10:09
[2018-02-14 12:00] VITALS: BP 136/70; PULSE 77; RESP 18; TEMP 99.1; O2SAT 100
[2018-02-14] MEDS ORDERED: AZTREONAM INJ 2,000 MG in SODIUM CHLORIDE 0.9% INJ 100 ML IV SCH (13:00)
--- NOTE | 2018-02-14 15:47 | HHI.PR ---
Subjective Remarks Pain continues, hit foot yesterday. Objective Vital Signs Date Time Temp Pulse Resp B/P (MAP) Pulse Ox O2 Delivery O2 Flow Rate FiO2 02/14/18 12:00 99.1 77 18 136/70 (92) 100 02/14/18 08:00 98.1 69 17 124/65 (84) 100 02/14/18 04:00 98.3 66 18 130/66 (87) 97 02/14/18 00:00 98.1 81 18 130/76 (94) 95 02/13/18 20:00 98.7 87 18 145/77 (99) 99 02/13/18 16:37 98.1 81 20 147/76 (99) 98 I/O 02/13/18 02/13/18 02/13/18 02/14/18 02/14/18 02/14/18 07:00 15:00 23:00 07:00 15:00 23:00 Intake Total 900 ml 720 ml Output Total 900 ml Balance 900 ml -180 ml Intake Oral 900 ml 720 ml Output Urine Total 900 ml # Voids 4 1 3 # Bowel Movements 0 1 Result Diagram: 02/14/18 0953 02/14/18 0950 Procedures SP bone left calcaneus biopsy Dr Holloway Objective Remarks A and O x 3 NAD non labored respirations Flaccid BL LE, sensation claimed to be intact, pulses palpable, Left lateral hindfoot incision intact with minimal bleeding noted, no significant redness or swelling Left foot without ay new bruising or issue Assessment and Plan Problem List: (1) Osteomyelitis of foot ICD Codes: M86.9 - Osteomyelitis, unspecified Status: Acute (2) Stress fracture of calcaneus ICD Codes: M84.376A - Stress fracture, unspecified foot, initial encounter for fracture Assessment and Plan Awaiting bone biopsy results formal read- Spoke with Dr Vallecillo- Stuart, no OM, more likely a stress reaction, nursing to change bandage. No further surgery planned recommend possible custom bracing AFO to prevent further re injury. PT to possibly evaluate non weight bearing transfer. Sutures may be removed in 7- 10days. Problem Qualifiers (1) Osteomyelitis of foot: Clemente Marie DPM Feb 14, 2018 15:47
[2018-02-14 16:00] VITALS: BP 138/73; PULSE 91; RESP 18; TEMP 98.8; O2SAT 100
[2018-02-14] MEDS: ONDANSETRON ODT 4 MG TAB PO PRN (16:15)
[2018-02-14 20:00] VITALS: BP 135/67; PULSE 81; RESP 18; TEMP 97.6; O2SAT 97
[2018-02-14] MEDS: MONTELUKAST SODIUM 10 MG TAB PO SCH (20:08)
[2018-02-14] MEDS: AMITRIPTYLINE HCL 75 MG TAB PO SCH (20:08)
[2018-02-15] VITALS: BP 138/63; PULSE 80; RESP 18; TEMP 98.1; O2SAT 98
[2018-02-15] MEDS: HYDROmorphone HCL PF 2 MG/ML VIAL IV PUSH PRN ×5 (00:20→12:20)
[2018-02-15 04:00] VITALS: BP 123/64; PULSE 60; RESP 18; TEMP 98.2; O2SAT 97
[2018-02-15] MEDS: HEPARIN SODIUM - SQ 10,000 UNITS/ML VIAL SQ SCH (05:07)
[2018-02-15 07:29] LABS: HEMATOCRIT 39.6 % (35.0-46.0); HEMOGLOBIN 13.3 GM/DL (11.6-15.3); MEAN CELL VOLUME 95.1 FL (80.0-100.0); MEAN CORPUSCULAR HEMOGLOBIN 31.9 PG (27.0-34.0); MEAN CORPUSCULAR HGB CONC 33.6 % (32.0-36.0); MEAN PLATELET VOLUME 7.7 FL (7.0-11.0); PLATELET COUNT 367 TH/MM3 (150-450); RED BLOOD COUNT 4.16 MIL/MM3 (4.00-5.30); RED CELL DISTRIBUTION WIDTH 14.4 % (11.6-17.2); WHITE BLOOD COUNT 6.4 TH/MM3 (4.0-11.0)
[2018-02-15 07:56] LABS: BICARBONATE 25.7 MEQ/L (21.0-32.0); CREATININE 0.44 MG/DL (0.50-1.00)
[2018-02-15 08:00] VITALS: BP 121/60; PULSE 84; RESP 17; TEMP 98.5; O2SAT 98
[2018-02-15] MEDS: FAMOTIDINE 20 MG TAB PO SCH (08:12)
[2018-02-15] MEDS: BACLOFEN 20 MG TAB PO SCH (08:12)
[2018-02-15] MEDS: DOCUSATE SODIUM 50 MG/SENNA 8.6 MG TAB PO SCH (08:12)
[2018-02-15] MEDS: GABAPENTIN 300 MG CAP PO SCH ×2 (08:12→12:19)
[2018-02-15] MEDS: PARoxetine HCL 20 MG TAB PO SCH (08:13)
[2018-02-15] MEDS: clonazePAM 1 MG TAB PO SCH ×2 (08:13→12:19)
[2018-02-15] MEDS: PREGABALIN 100 MG CAP PO SCH ×2 (08:13→12:19)
[2018-02-15] MEDS: SODIUM CHLORIDE FLUSH BID IV FLUSH SCH (08:16)
--- NOTE | 2018-02-15 09:25 | HHI.FPPN ---
Subjective Remarks No acute events overnight. She doing well this morning. Boyfriend at bedside. She states that her pain is well under control with the new pain regimen. Discussed with patient about bone biopsy results. No osteomyelitis seen on bone biopsy. Discussed with patient about AFO brace and nonweightbearing. Patient states that she already has a foot brace that provides good protection and a wheelchair at home for transfer. She states that her boyfriend and mom are able to take care of her. She would not need home health care. She has no other complaints this morning. She had a bowel movement yesterday. She denies chest pain, shortness of breath, nausea vomiting, and diarrhea. (Priyanka Galvez MD R1) Objective Vitals Vital Signs Date Time Temp Pulse Resp B/P (MAP) Pulse Ox O2 Delivery O2 Flow Rate FiO2 02/15/18 04:00 98.2 60 18 123/64 (83) 97 02/15/18 00:00 98.1 80 18 138/63 (88) 98 02/14/18 20:00 97.6 81 18 135/67 (89) 97 02/14/18 16:00 98.8 91 18 138/73 (94) 100 02/14/18 12:00 99.1 77 18 136/70 (92) 100 I/O 02/14/18 02/14/18 02/14/18 02/15/18 02/15/18 02/15/18 07:00 15:00 23:00 07:00 15:00 23:00 # Voids 3 2 2 (Priyanka Galvez MD R1) Result Diagram: 02/15/1836 02/15/18 0636 Objective Remarks GENERAL: This is a well-nourished, well-developed white female patient laying in bed, in no acute distress. SKIN: No rashes, ecchymoses or lesions. Cool and dry. Bandage over left foot biopsy site. HEAD: Atraumatic. Normocephalic. NECK: Trachea midline. CARDIOVASCULAR: Regular rate and rhythm without murmurs, gallops, or rubs. RESPIRATORY: Clear to auscultation. Breath sounds equal bilaterally. No wheezes , rales, or rhonchi. GASTROINTESTINAL: Abdomen soft, non-tender, nondistended. No guarding. MUSCULOSKELETAL: Extremities without clubbing or cyanosis. Muscles in bilateral lower extremities are atrophied. Lateral left ankle tender to palpation. No sores or lesions. NEUROLOGICAL: Awake and alert. (Priyanka Galvez MD R1) A/P Assessment and Plan 22yo white female with a PMH of spinal stroke, anxiety, and depression who presented with suspected left ankle osteomyelitis. Bone biopsy negative for osteomyelitis. Discharge Planning Bone biopsy negative for osteomyelitis Anticipate discharge today No home health care needed. Patient follow-up with podiatry in 7-10 days for suture removal. (Priyanka Galvez MD R1) Attending Attestation Patient seen and examined. Case reviewed and discussed with the resident team. Agree with plan of care as discussed with me and documented in the resident note. fortunately, she has no osteo. MRIs are not diagnostic and osteo is a clinical diagnosis. she had multiple fractures and has abnormalities from that. she has been asking for pain meds. she does have an acute fracture and is s/p a bone biopsy so she will have some narcotics to go home with but may need pain management [facility] (Whit Newell MD) Problem List: (1) Ankle pain, left ICD Codes: M25.572 - Pain in left ankle and joints of left foot Status: Acute Plan: Patient initially injured her ankle in July. Re-injury occurred 3 weeks ago. Physical exam does not show any wounds as a source of infection. MRI 02/10 shows fracture of the proximal metaphysis of the second metatarsal with plantar angulation at the fracture site and a fracture of the calcaneus. Osteomyelitis in the calcaneus, portions of the talus, inferior lateral aspect of the base of the cuboid bone, and first metatarsal. White blood cell scan is concerning for osteomyelitis involving the calcaneus. Labs are significant significant for elevated ESR and CRP Blood cultures NGTD Bone biopsy 02/11 negative for osteomyelitis. s/p Linezolid 600 mg IV- this was discontinued due to risk of serotonin syndrome ID consulted, appreciated recs. Discontinue aztreonam 2000 mg IV every 8 hours (02/12-02/14) Discontinue daptomycin 500mg IV q24 added for gram-positive coverage (started -02/14) Patient is allergic to vancomycin. Consulted podiatry, performed bone biopsy on 02/11 negative for osteomyelitis. Due to stress reaction. non-weight bearing LLE. No further surgery planned. Bracing AFO to prevent further injury. Follow-up for suture removal in 7-10 days. Pain Control: Oxycodone 10 mg p.o. every 4 hours SHAHEEN Continue Dilaudid 1mg IV Q3H PRN pain 6-10 (2) Elevated liver enzymes ICD Codes: R74.8 - Abnormal levels of other serum enzymes Status: Acute Plan: Initially elevated, then trending up, now stabilized- may be medication side effect, as hepatitis is a known adverse reaction to aztreonam. hepatitis profile negative Liver US shows fatty liver Continue to monitor (3) Paraplegia ICD Codes: G82.20 - Paraplegia Status: Chronic Plan: Continue home medications -Baclofen 20 mg, 2 tablets 2 times daily -Gabapentin 1200 mg 3 times a day -Lyrica 200 mg 3 times a day (4) Anxiety ICD Codes: F41.9 - Anxiety Status: Chronic Plan: -Continue at home medication of clonazepam 1 mg 3 times daily (5) Depression ICD Codes: F32.9 - Depression Status: Chronic Plan: Continue at home medication -Amitriptyline 75 mg at bedtime -Paroxetine 40 mg daily (6) FEN Status: Acute Plan: Fluids: tolerating PO Electrolytes: monitor and replete as needed Nutrition: regular basic DVT Prophylaxis: Early ambulation. Heparin 5000U subQ q8hr GI Prophylaxis: Famotidine 20 mg p.o. twice daily (Priyanka Galvez MD R1) Problem Qualifiers (1) Ankle pain, left: Qualified Codes: M25.572 - Pain in left ankle and joints of left foot (2) Depression: Qualified Codes: F33.9 - Major depressive disorder, recurrent, unspecified Priyanka Galvez MD R1 Feb 15, 2018 09:25 Whit Newell MD Feb 16, 2018 12:04
[2018-02-15 10:26] LABS: ALBUMIN 2.8 GM/DL (3.4-5.0); DIRECT BILIRUBIN ADULT 0.1 MG/DL (0.0-0.2)
[2018-02-15 10:27] LABS: TOTAL BILIRUBIN ADULT 0.1 MG/DL (0.2-1.0); TOTAL PROTEIN 6.6 GM/DL (6.4-8.2)
[2018-02-15] MEDS ORDERED: OXYC-395 PO (11:18)
--- NOTE | 2018-02-15 11:27 | HHI.DCPOC ---
Discharge Care Plan Diagnosis: (1) Stress fracture of calcaneus (2) Depression (3) Paraplegia Goals to Promote Your Health * To prevent worsening of your condition and complications * To maintain your health at the optimal level Directions to Meet Your Goals Take your medications as prescribed Follow your dietary instruction Follow activity as directed Keep your appointments as scheduled Take your immunizations and boosters as scheduled If your symptoms worsen call your PCP, if no PCP go to Urgent Care Center or Emergency Room Smoking is Dangerous to Your Health. Avoid second hand smoke Call the 24-hour hour crisis hotline for domestic abuse at Priyanka Galvez MD R1 Feb 15, 2018 11:27
--- NOTE | 2018-02-15 11:44 | HHI.DS ---
Discharge Summary Admission Date Feb 11, 2018 at 00:36 Admitting Diagnosis Osteomyelitis of the foot. (1) Ankle pain, left Plan: Patient initially injured her ankle in July. Re-injury occurred 3 weeks ago. Physical exam does not show any wounds as a source of infection. MRI 02/10 shows fracture of the proximal metaphysis of the second metatarsal with plantar angulation at the fracture site and a fracture of the calcaneus. Osteomyelitis in the calcaneus, portions of the talus, inferior lateral aspect of the base of the cuboid bone, and first metatarsal. White blood cell scan is concerning for osteomyelitis involving the calcaneus. Labs are significant significant for elevated ESR and CRP Blood cultures NGTD Bone biopsy 02/11 negative for osteomyelitis. s/p Linezolid 600 mg IV- this was discontinued due to risk of serotonin syndrome ID consulted, appreciated recs. Discontinue aztreonam 2000 mg IV every 8 hours (02/12-02/14) Discontinue daptomycin 500mg IV q24 added for gram-positive coverage (started -02/14) Patient is allergic to vancomycin. Consulted podiatry, performed bone biopsy on 02/11 negative for osteomyelitis. Due to stress reaction. non-weight bearing LLE. No further surgery planned. Bracing AFO to prevent further injury. Follow-up for suture removal in 7-10 days. Pain Control: Oxycodone 10 mg p.o. every 4 hours SHAHEEN Continue Dilaudid 1mg IV Q3H PRN pain 6-10 ICD Codes: M25.572 - Pain in left ankle and joints of left foot Status: Acute (2) Elevated liver enzymes Plan: Initially elevated, then trending up, now stabilized- may be medication side effect, as hepatitis is a known adverse reaction to aztreonam. However patient started on aztreonam today for coverage of osteomyelitis. hepatitis profile negative Liver US shows fatty liver Continue to monitor ICD Codes: R74.8 - Abnormal levels of other serum enzymes Status: Acute (3) Paraplegia Plan: Continue home medications -Baclofen 20 mg, 2 tablets 2 times daily -Gabapentin 1200 mg 3 times a day -Lyrica 200 mg 3 times a day ICD Codes: G82.20 - Paraplegia Status: Chronic (4) Anxiety Plan: -Continue at home medication of clonazepam 1 mg 3 times daily ICD Codes: F41.9 - Anxiety Status: Chronic (5) Depression Plan: Continue at home medication -Amitriptyline 75 mg at bedtime -Paroxetine 40 mg daily ICD Codes: F32.9 - Depression Status: Chronic (6) FEN Plan: Fluids: tolerating PO Electrolytes: monitor and replete as needed Nutrition: regular basic DVT Prophylaxis: Early ambulation. Heparin 5000U subQ q8hr GI Prophylaxis: Famotidine 20 mg p.o. twice daily Status: Acute Brief History Ms. Gibson is a 22-year-old white female with a past medical history of spinal stroke causing paraplegia, anxiety, and depression presenting to the ED after being told by her PM&R doctor, Dr. Cruz, that she had osteomyelitis in her left ankle. She had an MRI done today in his office that indicated this. She states that this first started when she broke her left ankle in July. She had done well with healing up until 3 weeks ago when she was transferring on her own into her wheelchair and feels that she broke her ankle again. She is unsure of the actual inciting event, but feels that transferring was the cause. Since then she has had excruciating pain and swelling in her left ankle. She describes his pain as a 10/10 burning, aching, stinging, constant pain that is nonradiating. She states that it "feels like her foot is about to explode", nothing makes it feel better, is worse with pressure on her foot, movement, and touch. She is also had fevers and chills for the past week for which she took Tylenol and ibuprofen. She also started taking DayQuil and NyQuil because she thought she had the flu. T-max was 102F. Of note, she has had osteomyelitis twice in the past (2011 and 2015, both times in her left pelvis). CBC/BMP: 02/15/18 0636 02/15/18 0636 Significant Findings Laboratory Tests Test 02/13/18 08:30 02/14/18 09:50 02/14/18 09:53 02/15/18 06:36 Red Blood Count 3.93 MIL/MM3 (4.00-5.30) Eosinophils (%) (Auto) 5.1 % (0.0-4.0) Creatinine 0.34 MG/DL (0.50-1.00) 0.46 MG/DL (0.50-1.00) 0.44 MG/DL (0.50-1.00) Albumin 2.7 GM/DL (3.4-5.0) 2.8 GM/DL (3.4-5.0) 2.8 GM/DL (3.4-5.0) Alkaline Phosphatase 119 U/L (45-117) 123 U/L (45-117) Aspartate Amino Transf (AST/SGOT) 53 U/L (15-37) 44 U/L (15-37) 41 U/L (15-37) Alanine Aminotransferase (ALT/SGPT) 100 U/L (10-53) 97 U/L (10-53) 107 U/L (10-53) Total Bilirubin 0.1 MG/DL (0.2-1.0) LESS THAN 0.1 MG/DL 0.1 MG/DL (0.2-1.0) Carbon Dioxide Level 20.2 MEQ/L (21.0-32.0) PE at Discharge GENERAL: This is a well-nourished, well-developed white female patient laying in bed, in no acute distress. SKIN: No rashes, ecchymoses or lesions. Cool and dry. Bandage over left foot biopsy site. HEAD: Atraumatic. Normocephalic. NECK: Trachea midline. CARDIOVASCULAR: Regular rate and rhythm without murmurs, gallops, or rubs. RESPIRATORY: Clear to auscultation. Breath sounds equal bilaterally. No wheezes , rales, or rhonchi. GASTROINTESTINAL: Abdomen soft, non-tender, nondistended. No guarding. MUSCULOSKELETAL: Extremities without clubbing or cyanosis. Muscles in bilateral lower extremities are atrophied. Lateral left ankle tender to palpation. No sores or lesions. NEUROLOGICAL: Awake and alert. Priyanka Galvez MD R1 Feb 15, 2018 11:44
--- NOTE | 2018-02-15 12:27 | HHI.IDPN ---
Note Infectious Disease Note Patient reports pain in the left foot and left ankle. Afebrile. No chills or fever. Bone biopsy pathology does not show evidence of osteomyelitis. The patient was noted to have a fracture of the left ankle in 08/2017. She was being treated conservatively. PAST MEDICAL HISTORY: 1. 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 History of osteomyelitis of the buttock. 3. History of Clostridium difficile in 2014 4. Recurrent urinary tract infection, 5. Chronic back pain 6. Surgery for buttock osteo. ALLERGIES: CEPHALOSPORINS, VANCOMYCIN, PENICILLIN, LORTAB, LORAZEPAM, HYDROXYZINE, ADHESIVES MEDICATIONS: Current Medications Medications (Trade) Dose Ordered Sig/Rashida Route PRN Reason Start Time Stop Time Status Last Admin Dose Admin Sodium Chloride (NS Flush) 2 ml BID IV FLUSH 02/11/18 09:00 02/15/18 08:16 Sodium Chloride (NS Flush) 2 ml UNSCH PRN IV FLUSH FLUSH AFTER USING IV ACCESS 02/11/18 01:15 02/14/18 05:42 Acetaminophen (Tylenol) 650 mg Q4H PRN PO TEMP > 100.4 02/11/18 01:15 Naloxone HCl (Narcan Inj) 0.4 mg UNSCH PRN IV PUSH SEE LABEL COMMENTS 02/11/18 01:15 Senna/Docusate Sodium (Kathy-Colace) 1 tab BID PO 02/11/18 09:00 02/15/18 08:12 Ondansetron HCl (Zofran Odt) 8 mg Q6H PRN PO NAUSEA OR VOMITING 02/11/18 01:15 02/14/18 16:15 Enalaprilat (Vasotec Inj) 1.25 mg Q6H PRN IV PUSH SBP>170, DBP>100, HR>65 02/11/18 01:15 Heparin Sodium (Porcine) (Heparin Inj) 5,000 units Q8HR SQ 02/11/18 06:00 02/14/18 21:34 Amitriptyline HCl (Elavil) 75 mg HS PO 02/11/18 21:00 02/14/18 20:08 Baclofen (Lioresal) 40 mg BID PO 02/11/18 09:00 02/15/18 08:12 Clonazepam (KlonoPIN) 1 mg TID PO 02/11/18 09:00 02/15/18 12:19 Gabapentin (Neurontin) 1,200 mg TID PO 02/11/18 09:00 02/15/18 12:19 Montelukast Sodium (Singulair) 10 mg HS PO 02/11/18 21:00 02/14/18 20:08 Pregabalin (Lyrica) 200 mg TID PO 02/11/18 09:00 02/15/18 12:19 Hydrocortisone (Anusol Hc 2.5% Rect Cream) 1 applic BID PRN OTHER SEE LABEL COMMENTS 02/11/18 02:00 Patient Own Medication PT OWN: Levonorgestrel-Ethinyl Estrad... HS PO 02/11/18 21:00 Future Hold Paroxetine HCl (Paxil) 40 mg DAILY PO 02/11/18 09:00 02/15/18 08:13 Famotidine (Pepcid) 20 mg BID PO 02/11/18 09:00 02/15/18 08:12 Metoclopramide HCl (Reglan Inj) 10 mg Q8H PRN IV PUSH NAUSEA OR VOMITING 02/11/18 05:15 02/11/18 06:59 Zolpidem Tartrate (Ambien) 5 mg HS PRN PO INSOMNIA 02/11/18 21:00 Hydrocortisone (Nutracort 1% Oint) 1 applic QID PRN TOPICAL ITCHING AND/OR RASH 02/11/18 17:00 Diphenhydramine HCl (Benadryl) 25 mg Q6H PRN PO ALLERGIC REACTION 02/11/18 17:00 Oxycodone HCl (Roxicodone) 10 mg Q4HR PO 02/14/18 12:00 02/15/18 12:19 Hydromorphone HCl (Dilaudid Pf Inj) 1 mg Q3H PRN IV PUSH PAIN SCALE 6 TO 10 02/14/18 11:15 02/15/18 12:20 Objective: Vital Signs Date Time Temp Pulse Resp B/P (MAP) Pulse Ox O2 Delivery O2 Flow Rate FiO2 02/15/18 08:00 98.5 84 17 121/60 (80) 98 02/15/18 04:00 98.2 60 18 123/64 (83) 97 02/15/18 00:00 98.1 80 18 138/63 (88) 98 02/14/18 20:00 97.6 81 18 135/67 (89) 97 02/14/18 16:00 98.8 91 18 138/73 (94) 100 Laboratory Tests Test 02/14/18 09:53 02/15/18 06:36 White Blood Count 6.9 TH/MM3 6.4 TH/MM3 Red Blood Count 4.24 MIL/MM3 4.16 MIL/MM3 Hemoglobin 13.5 GM/DL 13.3 GM/DL Hematocrit 40.9 % 39.6 % Mean Corpuscular Volume 96.6 FL 95.1 FL Mean Corpuscular Hemoglobin 31.8 PG 31.9 PG Mean Corpuscular Hemoglobin Concent 32.9 % 33.6 % Red Cell Distribution Width 14.5 % 14.4 % Platelet Count 379 TH/MM3 367 TH/MM3 Mean Platelet Volume 7.8 FL 7.7 FL Laboratory Tests Test 02/14/18 09:50 02/15/18 06:36 Blood Urea Nitrogen 9 MG/DL 9 MG/DL Creatinine 0.46 MG/DL 0.44 MG/DL Random Glucose 81 MG/DL 77 MG/DL Total Protein 7.1 GM/DL 6.6 GM/DL Albumin 2.8 GM/DL 2.8 GM/DL Calcium Level 8.7 MG/DL 9.0 MG/DL Alkaline Phosphatase 123 U/L 115 U/L Aspartate Amino Transf (AST/SGOT) 44 U/L 41 U/L Alanine Aminotransferase (ALT/SGPT) 97 U/L 107 U/L Total Bilirubin LESS THAN 0.1 MG/DL 0.1 MG/DL Sodium Level 139 MEQ/L 139 MEQ/L Potassium Level 4.5 MEQ/L 4.4 MEQ/L Chloride Level 107 MEQ/L 104 MEQ/L Carbon Dioxide Level 20.2 MEQ/L 25.7 MEQ/L Anion Gap 12 MEQ/L 9 MEQ/L Estimat Glomerular Filtration Rate 171 ML/MIN 181 ML/MIN Direct Bilirubin 0.1 MG/DL Indirect Bilirubin 0.0 MG/DL Imaging: Tumor Localization 02/12/18 0000 Signed Impressions: CONCLUSION: 1. Extensive abnormal tracer accumulation throughout the left calcaneus concer jeff for osteomyelitis. Liver Ultrasound 02/12/18 0000 Signed Impressions: CONCLUSION: 1. Fatty liver. No gallstones. Bile duct not clearly visualized. No right-side d hydronephrosis. PHYSICAL EXAMINATION: GENERAL: No acute distress. Awake and alert. HEENT: Extraocular muscles grossly intact. Pupils reactive to light. No icterus. Oropharynx moist mucosa without lesions. NECK: Supple without adenopathy. LUNGS: Clear breath sounds. HEART: Regular S1, S2, without murmurs. ABDOMEN: Bowel sounds present. Soft, no tenderness appreciated. EXTREMITIES: The left ankle has tenderness on palpation over the calcaneus and also over the dorsum of the foot area near the ankle. SKIN: No diffuse rash. NEUROLOGIC: The patient is paralyzed below the waist. PSYCHIATRIC: Calm, pleasant and cooperative. IMPRESSION: Abnormal MRI involving the calcaneus of the left foot. The patient with known fracture involving the calcaneus and navicular bones back in 08/2017. White blood cell scan suggested osteomyelitis of the calcaneus. Bone biopsy pathology does not show any evidence of osteomyelitis. Trabecular bone with reactive features noted. RECOMMENDATIONS: Okay to discharge without antibiotics. No evidence of osteomyelitis on the bone biopsy and therefore no need to treat with antibiotics. Discussed with patient. She is to continue to wear her boot and make every effort to avoid additional trauma to the heel. Zack Harris MD Feb 15, 2018 12:27
== END 2018-02-15 13:43 | disposition home or self-care (01) | DRG 478 ==
LOC: NEPE 18:17 → NEDA 02-11 00:36 → NEPHCDU 02-11 02:01 → N05B 02-11 11:51
PROVIDERS: ADMIT Family Medicine; ATTEND Family Medicine
PROC: 0QBM3ZX Excision of Left Tarsal, Percutaneous Approach, Diagnostic (ICD-10-PCS; principal; 2018-02-11 12:48)
PROC: 2W3MX3Z Immobilization of Left Lower Extremity using Brace (ICD-10-PCS; 2018-02-15)
DX: S92.002A Unspecified fracture of left calcaneus, initial encounter for closed fracture (principal); G82.20 Paraplegia, unspecified; K76.0 Fatty (change of) liver, not elsewhere classified; F33.9 Major depressive disorder, recurrent, unspecified; N13.30 Unspecified hydronephrosis; S92.322A Displaced fracture of second metatarsal bone, left foot, initial encounter for closed fracture; F41.9 Anxiety disorder, unspecified; F17.210 Nicotine dependence, cigarettes, uncomplicated; J45.909 Unspecified asthma, uncomplicated; K21.9 Gastro-esophageal reflux disease without esophagitis; G89.29 Other chronic pain; M19.93 Secondary osteoarthritis, unspecified site; M25.472 Effusion, left ankle; M54.9 Dorsalgia, unspecified; I69.369 Other paralytic syndrome following cerebral infarction affecting unspecified side; R50.9 Fever, unspecified; R70.0 Elevated erythrocyte sedimentation rate; R94.5 Abnormal results of liver function studies; X58.XXXA Exposure to other specified factors, initial encounter; Z90.49 Acquired absence of other specified parts of digestive tract; Z87.440 Personal history of urinary (tract) infections; Z88.1 Allergy status to other antibiotic agents; Z91.048 Other nonmedicinal substance allergy status; Z88.0 Allergy status to penicillin; Z88.8 Allergy status to other drugs, medicaments and biological substances
CPT/HCPCS: 76705; 78807; 78999; 80048; 80053; 80074; 80076; 83605; 85025; 85027; 85652; 86140; 87015; 87040; 87070; 87102; 87116; 87176; 87205; 87206; 88307; 88311; 96365; 96366; A9569; J0878; J1170; J1644; J1885; J2020; J2270; J2405; J2765; J3010

== ENCOUNTER 2018-07-10 05:21 | Inpatient (IN) ==
[2018-07-10] MEDS ORDERED: Metoprolol Tartrate 25 MG Tablet PO ONE (05:47)
[2018-07-10] MEDS ORDERED: Chlorhexidine Gluconate 2% 1 Pack (2 Cloths) TOPICAL ONE (05:47)
[2018-07-10] MEDS ORDERED: Sodium Chlor 0.9% Inj 500 ML IV.SIG SCH (06:00)
[2018-07-10] MEDS ORDERED: Vancomycin Inj 1,000 MG in Sodium Chlor 0.9% Inj 250 ML IV.SIG SCH (06:00)
[2018-07-10] MEDS ORDERED: Chlorhexidine 4% Topical 120 APPLIC/120 ML Bottle TOPICAL SCH (06:00)
[2018-07-10] MEDS ORDERED: Clindamycin Inj 900 MG/6 ML Vial ONE (06:08)
[2018-07-10] MEDS ORDERED: Sodium Chlor 0.9% Inj 100 ML ONE (06:09)
[2018-07-10 06:19] LABS: Baso % (Auto) 0.6 % (0.0-2.0); Eos # (Auto) 0.3 th/mm3 (0.0-0.4); Eos % (Auto) 4.2 % (0.0-4.0); Hematocrit 36.7 % (35.0-46.0); Hemoglobin 12.3 gm/dL (11.6-15.3); Lymph # (Auto) 2.7 th/mm3 (1.0-4.8); Lymph % (Auto) 32.9 % (9.0-44.0); Mean Corpuscular HGB Conc 33.7 % (32.0-36.0); Mean Corpuscular Hemoglobin 31.5 pg (27.0-34.0); Mean Corpuscular Volume 93.6 fL (80.0-100.0); Mean Platelet Volume 8.3 fL (7.0-11.0); Mono # (Auto) 0.8 th/mm3 (0.0-0.9); Mono % (Auto) 9.3 % (0.0-8.0); Neut # (Auto) 4.4 th/mm3 (1.8-7.7); Platelet Count 296 th/mm3 (150-450); Red Blood Count 3.92 mil/mm3 (4.00-5.30); Red Cell Distribution Width 16.2 % (11.6-17.2); White Blood Count 8.3 th/mm3 (4.0-11.0)
[2018-07-10] MEDS ORDERED: Clindamycin 900 mg/NS Premix 900 MG/50 ML PIGGYBACK IV.SIG SCH (06:30)
[2018-07-10] MEDS ORDERED: RESP: Albuterol Concentrated 2.5 MG/0.5 ML Neb ONE (07:01)
[2018-07-10] MEDS ORDERED: Morphine Sulfate Inj 2 MG/ML Vial ONE (07:09)
[2018-07-10] MEDS ORDERED: Famotidine PF Inj 20 MG/2 ML Vial ONE (07:09)
[2018-07-10] MEDS ORDERED: Morphine Sulfate Inj 2 MG/ML Vial IV.PUSH PRN (07:09)
[2018-07-10] MEDS ORDERED: Famotidine PF Inj 20 MG/2 ML Vial IV.PUSH SCH (07:15)
[2018-07-10] MEDS ORDERED: Glycopyrrolate Inj 1 MG/5 ML Syringe IV.PUSH ONE (07:17)
[2018-07-10] MEDS ORDERED: Lidocaine PF 1% Inj 5 ML Syringe OTHER ONE (07:17)
[2018-07-10] MEDS ORDERED: Neostigmine Inj 5 MG/5 ML Syringe IV.PUSH ONE (07:17)
[2018-07-10] MEDS ORDERED: Ketorolac Inj 30 MG/ML (IVP) Vial IV.PUSH ONE (07:17)
--- NOTE | 2018-07-10 08:20 | P.OP ---
- Preoperative Diagnosis (1) Fracture of left tibia Date of procedure: 07/10/18 Procedure: Left tibia reduction and intramedullary nail fixation Anesthesia: GETA Surgeon: Srikanth Woody MD Network Professional: JOZEF Baeza PA-C The surgical procedure was assisted by my physician assistant track and field coach. My P.A. presence was necessary throughout this case for the manipulation and positioning of the surgical extremity. My P.A. was assisting me throughout the duration of this procedure. The skill set of a physician assistant track and field coach was medically necessary to complete this procedure. During the surgical case the surgical garment fitter was working at the back table and the physician assistant track and field coach was directly assisting me. Operation and Findings: Implants: ITS 9 mm x 315 mm tibial nail Plan of activity: Nonweightbearing left leg Patient was seen and examined preoperatively. An informed consent was obtained from patient after detailed discussion of risk and benefits. Risks of surgery include bleeding, infection, painful hardware, nonunion, malunion, leg length discrepancy, need for hardware removal, and medical complications associated with anesthesia including blood clots, stroke, heart attack, and were discussed. Operative site was marked. Patient was brought to the operating room placed on or table. Patient received IV antibiotics and was given IV sedation GETA. Operative leg was prepped with alcohol Hibiclens and draped in usual sterile fashion. Timeout procedure was performed Procedure began with reduction of fracture. Traction was applied. Fracture was reduced. There was comminution of the fracture. The fracture reduced and appropriate alignment was achieved. Fracture clamp was used to aid in reduction. Next a 3 cm incision was made proximal to the patella. Quadriceps tendon was split in line with fibers. Cannulas were placed in the patellofemoral joint to protect the articular surface at all times. A guidepin was placed into the tibia and advanced in the tibial canal. Fluoroscopy was used to confirm appropriate guidepin placement. An opening reamer was used to open the tibial canal. A ball-tipped guidewire was advanced down the tibial canal. Guidepin was passed across the fracture site into the center of the distal tibia. Fluoroscopy confirmed guidepin placement. The nail length was now measured. The fracture was now held in a reduced position and the canal was reamed. The canal was reamed up to appropriate size. A tibia nail was now selected. Next the nail was fully seated. Using perfect false pass technique 2 distal interlocking screws were placed. Using the insertion handle as a guide 4 proximal interlocking screws were placed. Fluoroscopy confirmed excellent of fracture with well-placed hardware. Incisions and the knee joint were thoroughly irrigated with sterile saline. Fascia was closed with #1 Vicryl, subcutaneous tissues closed with 3-0 Vicryl and skin was closed with joseph. Sterile dressings were applied. Patient was awakened and transferred to recovery in stable condition.
[2018-07-10] MEDS ORDERED: Morphine Inj 4 MG/ML Vial IV.PUSH PRN (08:22)
[2018-07-10] MEDS ORDERED: Sugammadex Inj 200 MG/2 ML Vial IV.PUSH ONE (08:34)
[2018-07-10] MEDS ORDERED: *Meperidine Inj 25 MG/ML Vial PERIprocedural Use ONLY ONE (08:39)
[2018-07-10] MEDS ORDERED: Post-op Orders (for Pharmacy) OTHER STA (08:40)
[2018-07-10] MEDS ORDERED: *morphine SULFATE 10 MG/ML PERIprocedure ONLY ONE ×3 (08:43→08:58)
[2018-07-10] MEDS ORDERED: fentaNYL Citrate Inj 100 MCG/2 ML Ampul ONE (08:43)
[2018-07-10] MEDS ORDERED: Bisacodyl 10 MG Supp RECTAL PRN (09:00)
[2018-07-10] MEDS ORDERED: *HYDROmorphone PF Inj 1 MG/ML Ampul PERIprocedural Use ONLY ONE ×3 (09:03→09:39)
[2018-07-10] MEDS: oxyCODONE/Acetaminophen 10/325 Tablet PO PRN ×3 (11:34→20:27)
[2018-07-10] MEDS: Methocarbamol 500 MG Tablet PO SCH ×2 (12:57→17:21)
[2018-07-10] MEDS: Calcium/Vitamin D 250/125 MG Tablet PO SCH ×2 (12:57→17:21)
--- NOTE | 2018-07-10 14:22 | XR ---
EXAM DATE: 07/10/2018 2:19 PM EST AGE/SEX: 23 years / Female INDICATIONS: Open reduction internal fixation left tib/fib. CLINICAL DATA: This is the patient's initial encounter. Patient reports that signs and symptoms have been present for 1 day and indicates a pain score of Nonresponsive. MEDICAL/SURGICAL HISTORY: Non-responsive. Non-responsive. COMPARISON: No prior exams available for comparison. FINDINGS: Intraoperative exam demonstrates intramedullary mukesh placement across the patient's tibial fracture. A lignment is excellent post rodding. CONCLUSION: Excellent alignment of the tibial fracture post rodding. Electronically signed by: Rd Thomas MD 07/10/2018 2:21 PM EST
[2018-07-10] MEDS: Clindamycin 600 mg/NS Premix 600 MG/50 ML PIGGYBACK IV.SIG SCH ×2 (15:50→22:29)
[2018-07-10] MEDS: HYDROmorphone PF Inj 1 MG/ML Ampul IV.PUSH PRN ×2 (17:22→22:30)
[2018-07-10] MEDS: Montelukast 10 MG Tablet PO SCH (20:27)
[2018-07-10] MEDS: Famotidine 20 MG Tablet PO SCH (20:29)
[2018-07-10] MEDS: clonazePAM 1 MG Tablet PO SCH (20:29)
[2018-07-10] MEDS: Multivitamin/Minerals Therapeutic Tablet PO SCH (20:30)
[2018-07-10] MEDS: Senna/Docusate Sodium 8.6/50 MG Tablet PO SCH (20:30)
[2018-07-10] MEDS ORDERED: Gabapentin 300 MG Capsule PO SCH (21:00)
[2018-07-11] MEDS: oxyCODONE/Acetaminophen 10/325 Tablet PO PRN ×6 (01:04→22:27)
--- NOTE | 2018-07-11 06:43 | P.PNOP ---
Subjective Interval history: POD 1 s/p IMN left tibia states significant pain. Physical Exam Vital signs: Vital Signs 07/10/18 06:52 07/10/18 08:39 07/10/18 08:45 Temperature 98.4 F 98.4 F Pulse Rate 92 H 96 H 96 H Respiratory Rate 16 16 16 Blood Pressure 121/67 118/60 122/76 Pulse Oximetry 98 100 96 07/10/18 09:00 07/10/18 09:15 07/10/18 09:30 Temperature Pulse Rate 84 96 H 88 Respiratory Rate 16 16 16 Blood Pressure 120/72 128/77 124/78 Pulse Oximetry 96 96 96 07/10/18 12:00 07/10/18 16:00 07/10/18 21:10 Temperature 97.5 F L 98.2 F 98.5 F Pulse Rate 68 60 78 Respiratory Rate 16 16 18 Blood Pressure 103/59 L 122/57 L 120/58 L Pulse Oximetry 96 95 96 07/11/18 00:45 Temperature 98.1 F Pulse Rate 76 Respiratory Rate 18 Blood Pressure 117/58 L Pulse Oximetry 95 Intake & Output 07/10/18 07/10/18 07/11/18 06:59 18:59 06:59 Intake Total 1070 / 1070 1050 / 1050 Output Total 650 / 650 800 / 800 Balance 420 / 420 250 / 250 Weight 52.5 kg Intake: IV 50 / 50 1050 / 1050 LR 1000 mL Inj 1,000 ML @ 80 1000 / 1000 mls/hr IV.CONT .[id number] SHAHEEN Rx# :[id number] Cleocin 600 mg/NS Premix 600 mg 50 / 50 50 / 50 In 50 ml @ 100 mls/hr IV.SIG Q8H [facility] Rx#:[id number] Oral 620 / 620 Anesthesia Amount 300 / 300 Other 100 / 100 Output: Estimated Blood Loss 50 / 50 Urine Amount (Catheter) 600 / 600 800 / 800 Straight 600 / 600 800 / 800 Other: Other Intake Source Saline Solution # Voids 1 Weight On Admission 52.5 kg Narrative: LLE: dressings clean and dry. intact. - Urinary Catheter Management Straight Cath placed during this visit: no Results - Labs CBC & Chem 7: 07/10/18 06:04 Laboratory Results - last 24 hr 07/10/18 06:04 Beta HCG, Quant 1 - Imaging Impressions Tibia/Fibula X-Ray 07/10/18 00:00 CONCLUSION: Excellent alignment of the tibial fracture post rodding. Assessment and Plan - Assessment and Plan 1) Left Tibia Shaft Fx s/p IMN - POD 1
--- NOTE | 2018-07-11 06:45 | P.PNOP ---
Subjective Interval history: POd 1 s/p IMN left tibia states significant pain. reports pain meds not controlled adequately. reports was on lyrica at home but not restarted here Physical Exam Vital signs: Vital Signs 07/10/18 06:52 07/10/18 08:39 07/10/18 08:45 Temperature 98.4 F 98.4 F Pulse Rate 92 H 96 H 96 H Respiratory Rate 16 16 16 Blood Pressure 121/67 118/60 122/76 Pulse Oximetry 98 100 96 07/10/18 09:00 07/10/18 09:15 07/10/18 09:30 Temperature Pulse Rate 84 96 H 88 Respiratory Rate 16 16 16 Blood Pressure 120/72 128/77 124/78 Pulse Oximetry 96 96 96 07/10/18 12:00 07/10/18 16:00 07/10/18 21:10 Temperature 97.5 F L 98.2 F 98.5 F Pulse Rate 68 60 78 Respiratory Rate 16 16 18 Blood Pressure 103/59 L 122/57 L 120/58 L Pulse Oximetry 96 95 96 07/11/18 00:45 Temperature 98.1 F Pulse Rate 76 Respiratory Rate 18 Blood Pressure 117/58 L Pulse Oximetry 95 Intake & Output 07/10/18 07/10/18 07/11/18 06:59 18:59 06:59 Intake Total 1070 / 1070 1050 / 1050 Output Total 650 / 650 800 / 800 Balance 420 / 420 250 / 250 Weight 52.5 kg Intake: IV 50 / 50 1050 / 1050 LR 1000 mL Inj 1,000 ML @ 80 1000 / 1000 mls/hr IV.CONT .[id number] [facility] Rx# :[id number] Cleocin 600 mg/NS Premix 600 mg 50 / 50 50 / 50 In 50 ml @ 100 mls/hr IV.SIG Q8H [facility] Rx#:[id number] Oral 620 / 620 Anesthesia Amount 300 / 300 Other 100 / 100 Output: Estimated Blood Loss 50 / 50 Urine Amount (Catheter) 600 / 600 800 / 800 Straight 600 / 600 800 / 800 Other: Other Intake Source Saline Solution # Voids 1 Weight On Admission 52.5 kg Narrative: LLE: dressings clean and dry. intact. - Urinary Catheter Management Straight Cath placed during this visit: no Results - Labs CBC & Chem 7: 07/10/18 06:04 Laboratory Results - last 24 hr 07/10/18 06:04 Beta HCG, Quant 1 - Imaging Impressions Tibia/Fibula X-Ray 07/10/18 00:00 CONCLUSION: Excellent alignment of the tibial fracture post rodding. Assessment and Plan - Assessment and Plan 1) Left Tibia Shaft Fx s/p IMN - POD 1 -NWB -daily dressing changes POD 2 -restart home dose lyrica -change dilaudid to 2mg Q4H for breakthrough pain -CM for [facility] -monitor -hopeful plan for DC with [facility] tomorrow or -f/u with Margret or [facility] in 2 weeks
[2018-07-11] MEDS: Senna/Docusate Sodium 8.6/50 MG Tablet PO SCH ×2 (09:29→21:12)
[2018-07-11] MEDS: Multivitamin/Minerals Therapeutic Tablet PO SCH ×2 (09:31→21:12)
[2018-07-11] MEDS: Calcium/Vitamin D 250/125 MG Tablet PO SCH ×3 (09:31→17:18)
[2018-07-11] MEDS: Famotidine 20 MG Tablet PO SCH ×2 (09:31→21:11)
[2018-07-11] MEDS: Methocarbamol 500 MG Tablet PO SCH ×3 (09:31→17:18)
[2018-07-11] MEDS: clonazePAM 1 MG Tablet PO SCH ×2 (09:31→21:12)
[2018-07-11] MEDS: HYDROmorphone PF Inj 1 MG/ML Ampul IV.PUSH PRN ×4 (10:08→21:26)
[2018-07-11] MEDS: Montelukast 10 MG Tablet PO SCH (21:11)
[2018-07-12] MEDS: HYDROmorphone PF Inj 1 MG/ML Ampul IV.PUSH PRN ×5 (00:26→15:44)
[2018-07-12] MEDS: oxyCODONE/Acetaminophen 10/325 Tablet PO PRN ×4 (02:45→14:18)
--- NOTE | 2018-07-12 06:50 | P.PNOP ---
Subjective Interval history: Still complains of pain. Knee immobilizer in place Physical Exam Vital signs: Vital Signs 07/11/18 08:00 07/11/18 12:00 07/11/18 16:00 Temperature 98.5 F 98.4 F 97.4 F L Pulse Rate 92 H 83 95 H Respiratory Rate 16 16 16 Blood Pressure 138/75 133/68 121/62 Pulse Oximetry 98 98 98 07/11/18 19:29 07/12/18 00:22 07/12/18 04:16 Temperature 98.3 F 98.4 F 98.1 F Pulse Rate 99 H 82 89 Respiratory Rate 18 18 18 Blood Pressure 124/64 106/61 117/68 Pulse Oximetry 98 95 96 Intake & Output 07/11/18 07/11/18 07/12/18 06:59 18:59 06:59 Intake Total 1810 / 1810 1520 / 1520 480 / 480 Output Total 800 / 800 Balance 1010 / 1010 1520 / 1520 480 / 480 Weight 52.5 kg 52.2 kg Intake: IV 1050 / 1050 1000 / 1000 LR 1000 mL Inj 1,000 ML @ 80 1000 / 1000 1000 / 1000 mls/hr IV.CONT .[id number] [facility]HE[facility] Rx# :[id number] Cleocin 600 mg/NS Premix 600 mg 50 / 50 In 50 ml @ 100 mls/hr IV.SIG Q8H [facility] Rx#:[id number] Oral 760 / 760 520 / 520 480 / 480 Output: Urine Amount (Catheter) 800 / 800 Straight 800 / 800 Other: # Voids 3 7 Date of Last Bowel Movement 07/10/18 07/10/18 # Bowel Movements 0 0 Narrative: Left lower extremity: Knee immobilizer in place. Clean dry dressings intact. Good capillary refills distally. No active dorsiflexion/plantarflexion. - Urinary Catheter Management Straight Cath placed during this visit: no Results - Labs CBC & Chem 7: 07/10/18 06:04 Assessment and Plan - Assessment and Plan 1) Left Tibia Shaft Fx s/p IMN - POD 2 -NWB -daily dressing changes POD 2 -restart home dose lyrica -change dilaudid to 2mg Q4H for breakthrough pain - for [facility] -monitor -hopeful plan for DC with [facility] today -She needs a wheelchair with an elevated leg rest due to knee immobilizer -f/u with [facility] or [facility] in 2 weeks
--- NOTE | 2018-07-12 06:56 | P.DCO ---
- Physical Therapy Left Lower Extremity Weight Bearing: Non-weight bearing Left Lower Extremity Range of Motion: Passive ROM - Nursing Dressing changes: Daily dressing change, Dick wrap, Paper tape, Xeroform - Certification Need for Home Health services: I have seen patient Malka Gibson on 07/12/18. My clinical findings support the need for the requested home health care services because: Need for Home Health Services: Limited mobility due to disease progression Homebound Certification: I certify that my clinical findings support that this patient is homebound because: Homebound Certification: Post-op weakness
[2018-07-12] MEDS: clonazePAM 1 MG Tablet PO SCH (10:46)
[2018-07-12] MEDS: Multivitamin/Minerals Therapeutic Tablet PO SCH (10:46)
[2018-07-12] MEDS: Calcium/Vitamin D 250/125 MG Tablet PO SCH ×2 (10:46→14:14)
[2018-07-12] MEDS: Senna/Docusate Sodium 8.6/50 MG Tablet PO SCH (10:46)
[2018-07-12] MEDS: Methocarbamol 500 MG Tablet PO SCH ×2 (10:46→14:14)
[2018-07-12] MEDS: Famotidine 20 MG Tablet PO SCH (10:47)
--- NOTE | 2018-07-12 11:07 | P.DCO ---
- Nursing Dressing changes: Daily dressing change, Dick wrap, 4x4s, Xeroform - Certification Need for Home Health services: I have seen patient Malka Gibson on 07/12/18. My clinical findings support the need for the requested home health care services because: Need for Home Health Services: Limited mobility due to disease progression Homebound Certification: I certify that my clinical findings support that this patient is homebound because: Homebound Certification: Post-op weakness
[2018-07-12 16:00] VITALS: BP 117/55; PULSE 113; RESP 20; TEMP 98.3; O2SAT 100
== END 2018-07-12 16:16 | disposition home health service (06) ==
LOC: HSDI 05:21 → N06 10:11
PROVIDERS: ADMIT Orthopaedic Surgery Orthopaedic Trauma; ATTEND Orthopaedic Surgery Orthopaedic Trauma
PROC: ORIFTIB (2018-07-10 07:17)